=== PATIENT | female | born 1955 | race Caucasian/White ===

== ENCOUNTER 2018-09-05 05:32 | Observation (INO) | payer MEDICARE, SELFPAY ==
[2018-09-05] VITALS (8 sets, daily range): BP systolic 151–176; BP diastolic 63–91; PULSE 66–97; RESP 16–20; TEMP 36.5–36.9; O2SAT 93–95; BMI 36.0; BMI 35.7; BMI 35.8
--- NOTE | 2018-09-05 05:40 | EKG12_ITS ---
Test Reason : NAUSEA VOMITING Blood Pressure : / mmHG Vent. Rate : 061 BPM Atrial Rate : 061 BPM P-R Int : 152 ms QRS Dur : 090 ms QT Int : 402 ms P-R-T Axes : 040 -09 021 degrees QTc Int : 404 ms Normal sinus rhythm Voltage criteria for left ventricular hypertrophy Abnormal ECG Confirmed by VOLODYMYR RADER, INA ([id number]), mapping editor MAMADOU VILLEGAS ([id number]) on 09/09/2018 12:38:43 PM Referred By: PERRY Confirmed By:INA HELM MD
--- NOTE | 2018-09-05 05:41 | CT_ITS ---
STUDY: CT ABDOMEN AND PELVIS WITHOUT CONTRAST REASON FOR EXAM: Female, 63 years old. Vomiting and back pain RADIATION DOSAGE (If Supplied By Facility): CTDIvol = ( 22.94 ) mGy, DLP = ( 1186.41 ) mGycm TECHNIQUE: Transaxial images were obtained from the dome of the diaphragm to the symphysis pubis without oral contrast, and without intravenous contrast. Sagittal and coronal images were reconstructed. # of Images: 532 Individualized dose optimization techniques were used for this CT. COMPARISON: None. FINDINGS: The visualized lung bases are unremarkable. The visualized portions of the heart are within normal limits. Hiatal hernia. Remote postoperative changes of the right hepatic lobe. Cholecystectomy has been reported, although a round fluid-filled structure is identified in the gallbladder fossa measuring 4.9 x 4.0 cm. The gallbladder has indeed been removed, this could represent an eccentric hepatic cyst or choledochal cyst. Splenomegaly, with spleen length of 17 cm. Multiple abdominal varices. Normal pancreas. Normal bilateral adrenal glands. Normal right kidney. Normal left kidney. Normal visualized stomach. Normal small intestine. Sigmoid colon anastomosis. The appendix is visualized and appears normal. Normal abdominal aorta. Normal inferior vena cava. Normal retroperitoneum. Normal urinary bladder. Indeterminate partially calcified and partially cystic lesion in the right pelvis may be uterine or ovarian in nature. It measures 4.2 x 2.6 cm. Multiple midline anterior abdominal wall hernias. The most superior contains fat. The more inferior contains a portion of the transverse colon. More inferiorly, a hernia repair has been performed. Normal osseous structures. CT/Abdomen/Pelvis without Cont IMPRESSION: Multiple anterior abdominal wall hernias. The most inferior contains a portion of the transverse colon without mechanical obstruction. Indeterminate partially calcified and partially cystic lesion in the right pelvis may be uterine or ovarian in origin. Consider ultrasound correlation. Splenomegaly and multiple abdominal varices. Hiatal hernia. Indeterminate fluid-filled structure in the gallbladder fossa as described. If cholecystectomy has been performed, consider ultrasound correlation to evaluate further. Electronically Signed: Pranav Donald MD at 7:03 EDT Tel , Service support ,
--- NOTE | 2018-09-05 05:44 | ED.RN ---
NO OLD EKGS IN MUSE.
[2018-09-05] MEDS: proMETHazine 25 MG/ML Syringe 12.5 MG IV (06:00)
[2018-09-05] MEDS: 0.9% Normal Saline 1,000 ML 1000 ML IV (06:00)
[2018-09-05 06:14] LABS: Absolute Lymphocyte Count 0.72 X10^3/ul (0.83-4.51); Absolute Neutrophil Count 4.9 X10^3/uL (2.0-7.7); Basophil# 0.01 X10^3/uL; Basophil% 0.2 % (0-1); Eosinophil# 0.09 X10^3/uL; Eosinophils% 1.5 % (0-5); Hematocrit 44.6 % (37-47); Hemoglobin 15.3 g/dl (12.0-15.0); Lymphocyte # 0.72 X10^3/ul (4.0); Lymphocyte % 11.8 % (19-41); Mean Corp Hgb Conc 34.3 g/gl (32-36); Mean Corpuscular Hgb 29.7 pg (27.0-32.0); Mean Corpuscular Volume 86.6 fL (81-99); Mean Platelet Vol. 11.4 fl (6.2-12.0); Monocyte# 0.31 X10^3/uL; Monocyte% 5.1 % (0-10); Neutrophil # 4.94 X10^3/uL (2.7-7.7); Neutrophil % 81.2 % (47-70); Platelet Count 94 K/mm3 (150-450); RBC Distribution Width CV 14.1 % (11.6-14.6); RBC Distribution Width SD 44.5 fl (35.1-43.9); Red Blood Count 5.15 M/mm3 (4.2-5.4); White Blood Count 6.1 K/mm3 (4.4-11.0)
[2018-09-05 06:16] LABS: POSITIVE COUNT NO; POSITIVE DIFFERENTIAL NO; POSITIVE MORPHOLOGY NO
[2018-09-05] MEDS: LORazepam 2 MG/ML Syringe 1 MG IV (06:21)
[2018-09-05 06:32] LABS: BUN 13 mg/dL (7-18); Creatinine, Serum 0.72 mg/dL (0.55-1.02); EST Glomerular Filtration Rate 86 mL/min (>60); Estimated Creatinine Clearance 76.76 ml/min; Glucose 132 mg/dL (74-106)
[2018-09-05 06:33] LABS: AST(SGOT) 28 U/L (15-37); Alanine Aminotransfer ALT/SGPT 26 U/L (13-56); Albumin, Serum 3.8 g/dL (3.2-5.0); Alkaline Phosphatase 134 U/L (45-117); Anion Gap 8 (5-15); BUN/Creat Ratio 17.9 RATIO (10-20); Calcium,Total 9.2 mg/dL (8.5-10.1); Chloride 106 mmol/L (98-107); Est Glom Filt Rate - Afr Amer 104 mL/min (>60); Globulin 3.7 g/dL (2.2-4.2); Lipase 91 U/L (73-393); Potassium 4.1 mmol/L (3.5-5.1); Protein, Total 7.5 g/dL (6.4-8.2); Sodium Level 140 mmol/L (136-145)
[2018-09-05 06:39] LABS: Lactic Acid 1.1 mmol/L (0.4-2.0)
--- NOTE | 2018-09-05 06:43 | ED.VISSUMM ---
- ER Visit Summary Date of Service: 09/05/18 Chief Complaint: [Nausea and vomiting] History of Present Illness: The patient is a 63 F [presents to the emergency department with complaint of nausea and vomiting that started last evening. Patient's not sure if she just ate too much chocolate. Patient complains of some pain in her back and spasms. She denies any diarrhea. She denies any blood in her stool or black tarry stool. Patient denies any fevers. Patient does have a history of colon cancer with metastasis to the liver. Patient had prior cholecystectomy and partial liver resection. Patient denies urinary symptoms. Patient denies any chest pain or shortness of breath. Physical Examination: [HEENT-PERRLA, EOMI. Cranial nerves II through XII grossly intact. TMs clear. Mucous membranes moist. No adenopathy. Cardiovascular-regular rate and rhythm without murmur or ectopy Lungs-clear to auscultation, chest wall stable without crepitus or subcu emphysema Abdomen-normoactive bowel sounds, soft. Patient has some tenderness diffusely about the abdomen. There is no rebound, rigidity, or perineal signs. Extremities-intact ?4, normal range of motion, normal pulses, atraumatic] Test Results: [CBC with differential obtained showed a white blood cell count of 6.1, hemoglobin 15, hematocrit 45, platelets 94. Chemistries unremarkable. LFTs were normal. Lipase was 91. Troponin was less than 0.015.] CT scan of the abdomen pelvis showed multiple ventral hernias without evidence for incarceration or obstruction. Patient had a cystic structure in the area of the gallbladder fossa etiology uncertain and recommended further evaluation with ultrasound. Emergency Department Course and Treatment: [Patient was medicated initially with Zofran. Patient continued to vomit and was medicated with Reglan. Patient continues to complain of pain across her back and will be given a dose of morphine.] Treatment Plan: [Admit] Disposition: [Admit] Impression: [Intractable nausea and vomiting Back pain] This note was generated with [employer] dictation software. It may contain incorrect words, spelling, and punctuation that were not noted in review of the chart prior to signing ED Disposition - Plan for ED Patient: Chief Complaint: Nausea/Vomiting Referrals: Kimberly Ruelas MD [Primary Care Provider] -
[2018-09-05] MEDS: Metoclopramide 10 MG/2 ML Vial IV (06:57)
--- NOTE | 2018-09-05 08:54 | NURSING ---
pt refused flu shot at this time- states she is sick and wants to wait. IVF running at 150cc/hr per order via bag from ER
--- NOTE | 2018-09-05 09:16 | PCM.HP.STD ---
Problem List (1) Nausea and vomiting Status: Acute Qualifiers: Vomiting type: unspecified Vomiting Intractability: intractable Qualified Code(s): R11.2 - Nausea with vomiting, unspecified (2) Low back pain Status: Acute Qualifiers: Chronicity: acute Back pain laterality: bilateral Sciatica presence: without sciatica Qualified Code(s): M54.5 - Low back pain History of Present Illness Date of Admission: 09/05/18 Chief Complaint: Uncontrolled nausea and vomiting, low back pain The patient is a 63 year old hospital with chief complaint of nausea and vomiting since 1 AM this morning. Patient states she has had multiple episodes since that time including nausea and vomiting in the emergency room. She also complains of generalized low back pain, she does not complain of any radicular type pain down her legs or into the buttocks. Patient denies any diarrhea, she denies any fever, chills, or hematemesis. Evaluation in the emergency room included labs which were remarkable for elevated glucose of 132, alkaline phosphatase is elevated at 134, platelet count was slightly low at 94,000. CT scan of the abdomen and pelvis without contrast showed multiple anterior abdominal wall hernias, partially calcified cystic lesion in the right pelvis, and an indeterminate fluid-filled structure in the area of the gallbladder fossa that was approximately 5 cm in diameter. Hiatal hernia was also noted to be present. Patient was given several antiemetics in the emergency room with moderate success with her nausea and vomiting, she was not given any medication for her low back pain. [facility], given IV fluids, IV antiemetics, and IV pain medications if needed for low back pain, with the patient's low back pain continues, she may need plain films of her lumbar spine. 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 Lives: With Family Smoking Status: Never smoker Tobacco Use: Non-smoker Alcohol: None Drugs: None - *Family History Maternal History Items: Cancer - Breast cancer Paternal History Items: Cancer - Lymphoma Review of Systems Constitutional: Denies: Anorexia, Chills, Fever, Night Sweats, Malaise, Weakness, Weight Change, Fatigue Eyes: Denies: Cataracts, Conjunctivae Inflammation, Double vision, Drainage, Redness, Vision Change HEENT: Denies: Difficulty Swallowing, Dysphasia, Ear Pain, Eye Pain, Nasal bleeding, Nasal Congestion, Post Nasal Drip Cardiovascular: Denies: Chest Pain, Claudication, Chest Pressure, Palpitations Respiratory: Denies: Cough, Hemoptysis, Shortness of Breath, Shortness of breath at rest, Shortness of breath upon exertion, Sputum production Gastrointestinal: Reports: Nausea, Vomiting. Denies: Abdominal Pain, Constipation, Diarrhea, Hematemesis, Hematochezia, Melena Genitourinary: Denies: Dysuria, Frequency, Hematuria, Hesitancy, Urgency Gynecological: Denies: Breast symptoms Musculoskeletal: Reports: Back Pain. Denies: Foot Pain, Hand Pain, Joint Pain, Joint stiffness, Joint swelling, Joint Tenderness, Leg Pain, Neck Pain Skin: Denies: Dryness, Jaundice, Pruritis, Rash Neurological: Denies: Balance problems, Blurred vision, Double vision, Slurred speech, Difficulty swallowing, Focal weakness, Headaches, Incoordination, Numbness, Tingling Psychiatric: Denies: Anxiety, Depression, Homicidal Ideations, Suicidal Ideations Endocrine: Denies: Change in Body Habitus, Heat/ Cold Intolerance, Polydipsia, Polyuria Hematologic/ Lymphatic: Denies: Adenopathy, Anemia, Easy Bruising, Easy Bleeding, Petechiae, Purpura VTE Information - Inpt Only VTE Present on Admission: No VTE Mechan Device Prophylaxis: None VTE Pharm Prophylaxis ordered?: Yes Patient Problems: Active and Suspected Problems Nausea and vomiting (Acute) Low back pain (Acute) - Physical Exam General: Alert, Oriented x3, Cooperative, No apparent distress, Well developed, Well nourished HEENT: Atraumatic, PERRLA, EOMI, Normocephalic Oral: Moist Mucosa Neck: Supple, No JVD, Negative Carotid Bruits, No Nuchal Rigidity, Trachea Midline, Thyroid Normal Size and Texture Lungs: Clear to auscultation, Normal air movement, No rhonchi, No wheeze, No rales Cardiovascular: Regular rate, Regular Rhythm, Normal S1, Normal S2, No murmurs, No Ectopic Activity, PMI Normal, No rub noted, No Gallop Abdomen: Bowel Sounds Present, Soft, Non Tender, Hypoactive Bowel Sounds Extremities: No clubbing, No cyanosis, No edema, Capillary Refill Less than 3 Seconds Skin: No rashes, No breakdown Musculoskeletal: No Muscle Wasting Neurological: Cranial nerves II-XII grossly intact, Neuro grossly intact, Muscle tone normal, Sensory exam intact to light touch and pain Psych/Mental Status: Normal Affect, Appropriate, Alert and oriented to time, place, person, mood and affect Vital Signs Temp Pulse Resp BP Pulse Ox 98.2 F 70 20 H 158/86 H 95 09/05/18 08:21 09/05/18 09:06 09/05/18 08:21 09/05/18 08:21 09/05/18 08:21 Oxygen Delivery Method Room Air Weight: 103.4 kg Body Mass Index (BMI) 35.7 Laboratory Tests Past 24 Hrs 09/05/18 09/05/18 09/05/18 06:00 06:05 06:05 WBC 6.1 RBC 5.15 Hgb 15.3 H Hct 44.6 MCV 86.6 MCH 29.7 MCHC 34.3 RDW 14.1 RDW Differential 44.5 H Plt Count 94 L MPV 11.4 Immature Gran % (Auto) 0.200 Neut % (Auto) 81.2 H Lymph % (Auto) 11.8 L [place] % (Auto) 5.1 Eos % (Auto) 1.5 Baso % (Auto) 0.2 Absolute Neuts (auto) 4.9 Absolute Lymphs (auto) 0.72 L Total Counted Not Reportable Sodium 140 Potassium 4.1 Chloride 106 Carbon Dioxide 26.0 Anion Gap 8 BUN 13 Creatinine 0.72 Estim Creat Clear Calc 76.76 Est GFR (MDRD) Af Amer 104 Est GFR (MDRD) Non-Af 86 BUN/Creatinine Ratio 17.9 Glucose 132 H Lactic Acid 1.1 Calcium 9.2 Total Bilirubin 0.70 AST 28 ALT 26 Alkaline Phosphatase 134 H Troponin I < 0.015 Total Protein 7.5 Albumin 3.8 Globulin 3.7 Albumin/Globulin Ratio 1.0 Lipase 91 Assessment/Plan All Active Problems Nausea and vomiting (Acute) Low back pain (Acute) #1 uncontrolled nausea and vomiting-exact etiology unclear, possibly secondary to gastroenteritis although patient is not having any diarrhea. Patient was placed and observation status on MedSurg, she will receive IV fluids, IV antiemetics, and observed. #2 low back pain-etiology unclear at this point, possibly secondary to muscle spasm from nausea and vomiting, patient will receive IV pain medications, if her back continues to hurt she may need lumbar x-rays. #3 hypertension-patient will stay on her present medications #4 hypothyroidism-patient will stay on her present medication #5 depression-patient will stay on her present medication #6 fluid collection in the gallbladder fossa-this does not appear to be a solid mass but a fluid-filled area, patient has had a cholecystectomy in the past as well as part of her liver resected, since the patient is asymptomatic with this, I will not work this up at the present time Code Visit OBSV E&M: 57331 Initial observation care L3
[2018-09-05] MEDS: Morphine 4 MG/ML Syringe IV (09:26)
[2018-09-05] MEDS: Heparin Injection (Vial) 5,000 UNIT/ML VIAL 5000 UNIT SC ×2 (09:27→22:05)
[2018-09-05] MEDS: Lisinopril 10 MG Tablet PO (12:56)
[2018-09-05] MEDS: FLUoxetine 10 MG Capsule PO (12:56)
[2018-09-05] MEDS: 0.9% Normal Saline 1,000 ML 150 ML IV ×2 (12:56→19:48)
[2018-09-05] MEDS: Levothyroxine 137 MCG Tablet PO (12:58)
[2018-09-05 16:21] LABS: Bacteria 0 SEEN /hpf (None Seen); Red Blood Cells-Urine 0 SEEN /hpf (0-5); White Blood Cells 0 SEEN /hpf (0-5)
[2018-09-05 16:38] LABS: Color, Urine Yellow (Yellow); Glucose, Dipstick Normal (Normal); Ketone-Dipstick 5 mg/dl (Negative); Leukocyte Esterase-Dipstick Negative /ul (Negative); Nitrite-Dipstick Negative (Negative); Occult Blood-Urine Negative /ul (Negative); Protein-Dipstick 30 mg/dl (Negative); Specific Gravity, Urine 1.015 (1.002-1.030); Urine Bilirubin Dipstick Negative (Negative); Urine Clarity Clear (Clear); Urine Urobilinogen Normal (Normal)
[2018-09-05 17:02] LABS: Mucous, Urine 1+ /hpf (<or=2+); Squamous Epithelial Cells - UA 0-5 SEEN /hpf (5-10)
--- NOTE | 2018-09-05 19:52 | NURSING ---
pt was going to take Tylenol, but then decided not to. She was afraid it would make her vomit.
[2018-09-06] MEDS: 0.9% Normal Saline 1,000 ML 150 ML IV (02:23)
[2018-09-06 02:26] VITALS: BP 148/74; PULSE 68; RESP 18; TEMP 36.6; O2SAT 94
[2018-09-06] MEDS: Levothyroxine 137 MCG Tablet PO (05:41)
[2018-09-06 08:39] VITALS: BP 152/90; PULSE 67; RESP 18; TEMP 36.6; O2SAT 97
[2018-09-06] MEDS: Lisinopril 10 MG Tablet PO (10:39)
[2018-09-06] MEDS: Heparin Injection (Vial) 5,000 UNIT/ML VIAL 5000 UNIT SC (10:39)
[2018-09-06] MEDS: FLUoxetine 10 MG Capsule PO (10:40)
--- NOTE | 2018-09-06 11:48 | DCINST_ITS ---
- Discharge Diagnoses Current Active Problems: Current Active and Chronic Problems Nausea and vomiting (Acute) Low back pain (Acute) You will use the following diet at home:: No restrictions Your food should be the consistency of: Regular Your liquids should be the consistency of: Regular/Thin Discharge Activity: Return to Normal Activity Weight Bearing Status: Full weight bearing Allergies/Adverse Reactions: Allergies No Known Allergies Allergy (Verified 12/29/15 18:56) Medications to take at Discharge Fluoxetine [Prozac] 10 mg PO DAILY 08/01/17 Levothyroxine [Synthroid] 137 mcg PO DAILY 08/01/17 Lisinopril [Zestril] 10 mg PO DAILY 08/01/17 Primary Care Physician: Kimberly Ruelas MD [Primary Care Provider] - Please follow up with your Primary Care Physician in: within 2 weeks Test Results: Test results from this visit will be discussed in further detail at your follow- up appointment, if applicable.
[2018-09-06 12:51] VITALS: BP 138/70; PULSE 74; RESP 18; TEMP 36.8; O2SAT 97
--- NOTE | 2018-09-08 08:56 | DS.PCM_ITS ---
Discharge Date and Diagnosis Date of Admission: 09/05/18 Date of Discharge: 09/06/18 - Primary Discharge Diagnosis #1 uncontrolled nausea and vomiting secondary to viral gastroenteritis #2 low back pain secondary to muscle spasm from nausea and vomiting #3 hypertension #4 hypothyroidism #5 depression Hospital Course and Treatment Operations: None Procedures: None Summary of Care Provided: The patient is a 63 year old F was seen in the emergency room at [facility] with chief complaint of nausea and vomiting and low back pain. Workup in the emergency room included labs which were remarkable for a slightly elevated alkaline phosphatase-CBC was unremarkable. Patient was given IV fluids and antiemetics, she remained nauseated and she was placed in observation status on MedSurg 3 and IV fluids were continued and the patient was given IV antiemetics as needed. The following day, patient felt improved and was able to eat regular food there was no recurrence of the nausea and vomiting. Physical exam: On examination she appeared in good health and spirits. Vital signs as documented. Skin warm and dry and without overt rashes. Neck without JVD. Lungs clear. Heart exam notable for regular rhythm, normal sounds and absence of murmurs, rubs or gallops. Abdomen unremarkable and without evidence of organomegaly, masses, or abdominal aortic enlargement. Extremities nonedematous. Neuro: Cranial nerves II through XII are grossly intact, no focal motor deficits were noted, sensation was intact to light touch and pinprick Psych: Patient was alert and oriented x3, she did not appear anxious or depressed. On 09/06/18, patient was seen and examined and felt to be in stable condition for discharge home - Physical Exam Vital Signs Temp Pulse Resp BP Pulse Ox 98.3 F 74 18 138/70 H 97 09/06/18 12:51 09/06/18 12:51 09/06/18 12:51 09/06/18 12:51 09/06/18 12:51 Oxygen Delivery Method Room Air Weight: 103.4 kg Body Mass Index (BMI) 35.7 Intake and Output for Last 24 Hours 09/06/18 09/07/18 09/08/18 23:59 23:59 23:59 Intake Total 3047 / 3047 Balance 3047 / 3047 Discharge Activity: Return to Normal Activity Weight Bearing Status: Full weight bearing Home Medications: Medications to take at Discharge Fluoxetine [Prozac] 10 mg PO DAILY 08/01/17 Levothyroxine [Synthroid] 137 mcg PO DAILY 08/01/17 Lisinopril [Zestril] 10 mg PO DAILY 08/01/17 Primary Care Physician: Kimberly Ruelas MD [Primary Care Provider] - Please follow up with your Primary Care Physician in: within 2 weeks Disposition: Home Minutes spent on discharge:: 30 Patient Condition:: Stable Medical Necessity - Tobacco Use Smoking Status: Never smoker Tobacco Use: Non-smoker Meaningful Use Info Meaningful Use Diagnoses (Choose all that apply): None applicable Code Visit OBSV E&M: 89911 Observation care discharge
== END 2018-09-06 12:57 | disposition home or self-care (01) ==
LOC: ED 06:05 → MS3 07:57
PROVIDERS: Admitting Provider Internal Medicine; Emergency Provider Emergency Medicine; Family Provider Internal Medicine; PCP Internal Medicine; Visit Provider Internal Medicine
DX: A08.4 Viral intestinal infection, unspecified (principal); I10 Essential (primary) hypertension; E03.9 Hypothyroidism, unspecified; F32.9 Major depressive disorder, single episode, unspecified; Z79.899 Other long term (current) drug therapy; M62.830 Muscle spasm of back; Z85.038 Personal history of other malignant neoplasm of large intestine; Z85.05 Personal history of malignant neoplasm of liver
CPT/HCPCS: 74176; 80053; 81001; 83605; 83690; 84484; 85025; 93005; 96361; 96372; 96374; 96375; 97802; 99218; 99283; J7030; A4216; G0378

== ENCOUNTER 2018-11-14 01:39 | Emergency (ER) | payer MEDICARE, SELFPAY ==
[2018-11-14 01:40] VITALS: BP 176/96; PULSE 89; RESP 18; TEMP 36.8; O2SAT 96; BMI 35.5
[2018-11-14] MEDS: 0.9% Normal Saline 1,000 ML 1000 ML IV (02:43)
[2018-11-14] MEDS: proMETHazine 25 MG/ML Syringe 6.25 MG IV (02:44)
[2018-11-14 02:55] LABS: Absolute Lymphocyte Count 0.73 X10^3/ul (0.83-4.51); Basophil# 0.01 X10^3/uL; Basophil% 0.1 % (0-1); Eosinophil# 0.04 X10^3/uL; Eosinophils% 0.5 % (0-5); Hemoglobin 15.3 g/dl (12.0-15.0); Lymphocyte # 0.73 X10^3/ul (4.0); Lymphocyte % 8.9 % (19-41); Mean Corpuscular Hgb 29.8 pg (27.0-32.0); Mean Corpuscular Volume 87.5 fL (81-99); Mean Platelet Vol. 11.7 fl (6.2-12.0); Monocyte# 0.34 X10^3/uL; Monocyte% 4.2 % (0-10); Neutrophil # 7.02 X10^3/uL (2.7-7.7); Neutrophil % 85.9 % (47-70); POSITIVE COUNT NO; POSITIVE DIFFERENTIAL NO; POSITIVE MORPHOLOGY NO; Platelet Count 126 K/mm3 (150-450); RBC Distribution Width CV 13.4 % (11.6-14.6); Red Blood Count 5.14 M/mm3 (4.2-5.4); White Blood Count 8.2 K/mm3 (4.4-11.0)
[2018-11-14 03:05] LABS: ALB/GLOB Ratio 1.1 RATIO (0.9-2.4); AST(SGOT) 26 U/L (15-37); Alanine Aminotransfer ALT/SGPT 24 U/L (13-56); Albumin, Serum 4.1 g/dL (3.2-5.0); Alkaline Phosphatase 155 U/L (45-117); Anion Gap 10 (5-15); BUN 11 mg/dL (7-18); BUN/Creat Ratio 15.8 RATIO (10-20); Calcium,Total 9.2 mg/dL (8.5-10.1); Chloride 107 mmol/L (98-107); EST Glomerular Filtration Rate 90 mL/min (>60); Est Glom Filt Rate - Afr Amer 109 mL/min (>60); Estimated Creatinine Clearance 78.96 ml/min; Globulin 3.8 g/dL (2.2-4.2); Glucose 134 mg/dL (74-106); Lipase 107 U/L (73-393); Potassium 3.9 mmol/L (3.5-5.1); Protein, Total 7.9 g/dL (6.4-8.2); Sodium Level 140 mmol/L (136-145)
[2018-11-14 03:19] LABS: Mucous, Urine 0 SEEN /hpf (<or=2+); Red Blood Cells-Urine 0 SEEN /hpf (0-5)
[2018-11-14 03:23] LABS: Color, Urine Yellow (Yellow); Glucose, Dipstick Normal (Normal); Ketone-Dipstick 15 mg/dl (Negative); Leukocyte Esterase-Dipstick 500 /ul (Negative); Nitrite-Dipstick Negative (Negative); Occult Blood-Urine 10 /ul (Negative); Protein-Dipstick 100 mg/dl (Negative); Urine Bilirubin Dipstick Negative (Negative); Urine Clarity Clear (Clear); Urine Urobilinogen 1 mg/dl (Normal)
[2018-11-14 03:42] LABS: Bacteria RARE /hpf (None Seen); Squamous Epithelial Cells - UA 0-5 SEEN /hpf (5-10); White Blood Cells 5-10 SEEN /hpf (0-5)
--- NOTE | 2018-11-14 04:40 | ED.DEP ---
ED Disposition - Plan for ED Patient: Chief Complaint: Nausea/Vomiting Instructions: ED Nausea Vomiting Referrals: Kimberly Ruelas MD [Primary Care Provider] -
[2018-11-14] MEDS: Ketorolac 15 MG/ML Vial IV (04:55)
[2018-11-14 04:56] VITALS: BP 170/75; PULSE 81; RESP 17; O2SAT 97
--- NOTE | 2018-11-14 06:21 | ED.VISSUMM ---
- ER Visit Summary Date of Service: 11/14/18 Chief Complaint: Nausea and vomiting History of Present Illness: The patient is a 63 F who presents with nausea and vomiting. This is been a chronic recurrent issue for the patient. She has been undergoing evaluation. She states I am probably dehydrated. She began to have severe nausea and vomiting yesterday. No diarrhea. No abdominal pain. She does complain of a mild headache which she actually states is improving currently. She does have a history of metastatic colon cancer and partial liver resection. Physical Examination: Hypertensive vitals otherwise unremarkable Moist mucous membranes Heart regular rate and rhythm Lungs clear Abdomen soft no reproducible tenderness nondistended normal bowel sounds Alert Test Results: Labs notable for hemoglobin 15.3, glucose 134, alkaline phosphatase 155. Lipase normal. Urinalysis shows 500 leukocyte esterase, 5-10 WBCs, rare bacteria. Which this was sent for urine culture Emergency Department Course and Treatment: Patient was treated here with IV fluids and Phenergan. On reevaluation her nausea tolerated a p.o. challenge. She is still complaining of some headache and was given IV Toradol. Although her urinalysis does show rare bacteria and slight pyuria she has no lower urinary symptoms. Therefore this was sent for culture and we will defer on treatment at this time. She does feel better. She was discharged to follow-up with her primary care physician as needed. Treatment Plan: [] Disposition: Discharge Impression: Vomiting Headache This note was generated with [employer] dictation software. It may contain incorrect words, spelling, and punctuation that were not noted in review of the chart prior to signing ED Disposition - Plan for ED Patient: Disposition: Home or Assisted Living Chief Complaint: Nausea/Vomiting Instructions: ED Nausea Vomiting Referrals: Kimberly Ruelas MD [Primary Care Provider] -
== END 2018-11-14 05:05 | disposition home or self-care (01) ==
PROVIDERS: Emergency Provider Emergency Medicine; Family Provider Internal Medicine; PCP Internal Medicine
DX: R11.2 Nausea with vomiting, unspecified (principal); R51 Headache; K21.9 Gastro-esophageal reflux disease without esophagitis; I10 Essential (primary) hypertension; Z85.038 Personal history of other malignant neoplasm of large intestine; Z79.899 Other long term (current) drug therapy
CPT/HCPCS: 80053; 81001; 83690; 85025; 87077; 87086; 87088; 96361; 96374; 96375; 99283; J7030

== ENCOUNTER 2019-01-07 20:25 | Emergency (ER) | payer MEDICARE, SELFPAY ==
--- NOTE | 2019-01-07 20:27 | ED.RN ---
PT WENT TO [facility] WILL COMPLETE TRIAGE WHEN SHE RETURNS.
[2019-01-07 20:36] VITALS: BP 161/92; PULSE 73; RESP 16; TEMP 36.8; O2SAT 95; BMI 36.2
--- NOTE | 2019-01-07 21:13 | ED.VISSUMM ---
- ER Visit Summary Date of Service: 01/07/19 Chief Complaint: Nausea and vomiting History of Present Illness: The patient is a 63 F history of colon CA with liver metastases thousand and 12. Currently undergoing chemotherapy. Having nausea and vomiting since Sunday. Patient started chemotherapy again on Sunday and gets a continuous infusion. No fever. No diarrhea. No abdominal pain. She has had similar symptoms before with chemotherapy. Physical Examination: Older female no acute distress. Vital signs are stable. Afebrile. HEENT exam mild dry mucous membranes. Neck nontender no lymphadenopathy. Lungs clear to auscultation bilaterally. Heart regular rhythm no murmur. Abdomen is soft. Nontender. Nondistended. Normal bowel sounds. No peritoneal signs. No hernias. Moving all 4 extremities. Neurovascularly intact. Equal symmetrical top knitter strength bilaterally. Dorsi plantar flexion intact. Back nontender. Skin unremarkable. Neurologically awake and alert. No focal motor deficits. Test Results: BMP shows no acute abnormality. Normal gap and creatinine. Emergency Department Course and Treatment: Treated with IV fluids and Phenergan per patient request. On repeat exam at 2248 patient doing well. She is been able to hold down p.o. fluids. Her abdomen is benign. Her nausea is resolved. She is comfortable being discharged home. Treatment Plan: She has home nausea medications. Fluids and rest. Return if worse. Follow-up with her PCP as needed. Disposition: Discharge Impression: Acute nausea and vomiting Currently on chemotherapy for colon CA with liver metastases This note was generated with [employer] dictation software. It may contain incorrect words, spelling, and punctuation that were not noted in review of the chart prior to signing ED Disposition - Plan for ED Patient: Referrals: Kimberly Ruelas MD [Primary Care Provider] -
--- NOTE | 2019-01-07 21:17 | ED.DCSUM_ITS ---
- ER Visit Summary Date of Service: 01/07/19 Chief Complaint: Nausea and vomiting History of Present Illness: The patient is a 63 F history of colon CA with liver metastases thousand and 12. Currently undergoing chemotherapy. Having nausea and vomiting since Sunday. Patient started chemotherapy again on Sunday and gets a continuous infusion. No fever. No diarrhea. No abdominal pain. She has had similar symptoms before with chemotherapy. Physical Examination: Older female no acute distress. Vital signs are stable. Afebrile. HEENT exam mild dry mucous membranes. Neck nontender no lymphadenopathy. Lungs clear to auscultation bilaterally. Heart regular rhythm no murmur. Abdomen is soft. Nontender. Nondistended. Normal bowel sounds. No peritoneal signs. No hernias. Moving all 4 extremities. Neurovascularly intact. Equal symmetrical city engineer strength bilaterally. Dorsi plantar flexion intact. Back nontender. Skin unremarkable. Neurologically awake and alert. No focal motor deficits. Test Results: BMP shows no acute abnormality. Normal gap and creatinine. Emergency Department Course and Treatment: Treated with IV fluids and Phenergan per patient request. On repeat exam at 2248 patient doing well. She is been able to hold down p.o. fluids. Her abdomen is benign. Her nausea is resolved. She is comfortable being discharged home. Treatment Plan: She has home nausea medications. Fluids and rest. Return if worse. Follow-up with her PCP as needed. Disposition: Discharge Impression: Acute nausea and vomiting Currently on chemotherapy for colon CA with liver metastases This note was generated with [employer] dictation software. It may contain incorrect words, spelling, and punctuation that were not noted in review of the chart prior to signing ED Disposition - Plan for ED Patient: Referrals: Kimberly Ruelas MD [Primary Care Provider] -
[2019-01-07] MEDS: 0.9% Normal Saline 1,000 ML 1000 ML IV (21:26)
[2019-01-07] MEDS: proMETHazine 25 MG/ML Syringe 6.25 MG IV (21:27)
[2019-01-07 21:48] LABS: Anion Gap 10 (5-15); BUN 16 mg/dL (7-18); BUN/Creat Ratio 23.2 RATIO (10-20); Calcium,Total 8.9 mg/dL (8.5-10.1); Chloride 107 mmol/L (98-107); Creatinine, Serum 0.69 mg/dL (0.55-1.02); EST Glomerular Filtration Rate 91 mL/min (>60); Est Glom Filt Rate - Afr Amer 110 mL/min (>60); Glucose 118 mg/dL (74-106); Potassium 3.7 mmol/L (3.5-5.1); Sodium Level 142 mmol/L (136-145)
[2019-01-07 22:36] VITALS: BP 172/92; PULSE 52; RESP 16; TEMP 36.9; O2SAT 97
--- NOTE | 2019-01-07 22:53 | ED.DEP ---
ED Disposition - Plan for ED Patient: Disposition: Home or Assisted Living Instructions: ED Nausea Vomiting Referrals: Kimberly Ruelas MD [Primary Care Provider] - 3-5 Days if not improving Additional Instructions: Plenty of fluids and rest. Return if feeling worse. Follow-up with your primary care physician as needed. Usual home nausea medications as needed.
[2019-01-07 23:14] VITALS: BP 171/70; PULSE 54; RESP 16; O2SAT 96
== END 2019-01-07 23:29 | disposition home or self-care (01) ==
PROVIDERS: Emergency Provider Emergency Medicine; Family Provider Internal Medicine; PCP Internal Medicine
DX: R11.2 Nausea with vomiting, unspecified (principal); C18.9 Malignant neoplasm of colon, unspecified; C78.7 Secondary malignant neoplasm of liver and intrahepatic bile duct; Z79.899 Other long term (current) drug therapy
CPT/HCPCS: 80048; 96361; 96374; 99283; J7030

== ENCOUNTER 2019-12-27 01:42 | Emergency (ER) | payer MEDICARE, OTHER, SELFPAY ==
[2019-12-27 01:43] VITALS: BP 205/89; PULSE 83; RESP 17; TEMP 36.5; O2SAT 97; BMI 35.3
[2019-12-27] MEDS: cloNIDine HCl 0.1 MG Tablet PO ×2 (02:24→03:24)
[2019-12-27 02:25] VITALS: BP 186/75; PULSE 75; RESP 16; O2SAT 95
[2019-12-27 03:26] VITALS: BP 189/64
--- NOTE | 2019-12-27 03:27 | ED.DCSUM_ITS ---
- ER Visit Summary Date of Service: 12/27/19 Chief Complaint: Hypertension History of Present Illness: The patient is a 64 F who complains of high blood pressure. She noted her symptoms yesterday during the day and around 3 PM. She was feeling unwell, but has no other specific complaints. She checked her blood pressure and it was 177 systolic. She took her evening meds, per usual, and she had an episode of vomiting. She says her nausea resolved. No other GI issues or pain. No other symptoms whatsoever. She has a history of high blood pressure and takes lisinopril. She was previously on 10 mg, but was increased to 20 mg 3 days ago. She has been compliant. She has a history of colon cancer and stomach cancer in remission. Physical Examination: Blood pressure is 205/89. Otherwise vitals normal. Afebrile. HEENT exam unremarkable. Cranial nerves grossly intact. Heart regular. Lungs clear. Abdomen soft. Extremities nontender with no edema. Good strength and sensation. Normal cerebellar testing. Test Results: None performed Emergency Department Course and Treatment: Patient currently has asymptomatic hypertension. She was treated with Catapres 0.1 mg. Repeat blood pressure was 186/75. She received an additional dose. She continued to have no additional symptoms. Because she had no symptoms, no further work-up or testing was pursued. She does get regular laboratory studies, and we did not repeat these today. Patient's repeat blood pressure was improved. She has no symptoms and is requesting discharge. She will follow-up with her doctor for recheck. Return for any new or worsening issues. Call 911 for chest pain or stroke symptoms. Treatment Plan: As above Disposition: Discharge Impression: Hypertension, established This note was generated with [employer] dictation software. It may contain incorrect words, spelling, and punctuation that were not noted in review of the chart prior to signing ED Disposition - Plan for ED Patient: Referrals: Kimberly Ruelas MD [Primary Care Provider] -
--- NOTE | 2019-12-27 03:31 | ED.DEP ---
ED Disposition - Plan for ED Patient: Instructions: HYPERTENSION, Established Referrals: Kimberly Ruelas MD [Primary Care Provider] -
[2019-12-27 03:34] VITALS: BP 168/85
== END 2019-12-27 03:41 | disposition home or self-care (01) ==
PROVIDERS: Emergency Provider Emergency Medicine; PCP Internal Medicine
DX: I10 Essential (primary) hypertension (principal); Z85.038 Personal history of other malignant neoplasm of large intestine; K21.9 Gastro-esophageal reflux disease without esophagitis; E03.9 Hypothyroidism, unspecified
CPT/HCPCS: 99283

== ENCOUNTER 2021-02-01 12:22 | Outpatient (RCR) | payer MEDICARE, OTHER, SELFPAY ==
[2021-02-01] MEDS: COVID-19 VACC, MRNA(PFIZER)/PF 30 MCG/0.3 ML SYRINGE IM (16:01)
[2021-02-22] MEDS: COVID-19 VACC, MRNA(PFIZER)/PF 30 MCG/0.3 ML SYRINGE IM (16:08)
== END 2021-04-26 23:59 ==
LOC: IMMUN 12:22
PROVIDERS: PCP Internal Medicine; Visit Provider Family Medicine
DX: Z23 Encounter for immunization (principal)
CPT/HCPCS: 0001A; 0002A; 91300

== ENCOUNTER 2021-03-02 06:22 | Day surgery (SDC) | payer MEDICARE, OTHER, SELFPAY ==
--- NOTE | 2021-03-01 18:13 | HP.PCM_ITS ---
History and Physical Date of Admission: 03/02/21 HISTORY AND PHYSICAL ? Estefany Adrian 1955 ? ? REFERRING PHYSICIAN: Dima Lopez MD ? CHIEF COMPLAINT: No chief complaint on file. ? HPI: The patient is a 65 year old female with history of metastatic colon cancer status post resection of liver lesions x 2 who presents with possible recurrence of disease. She is found to have peritoneal lesions on PET scan. She is presently on xeloda for control of her disease. She is noted to have cirrhosis and splenomegaly with portal hypertension. She is referred by her oncologist for upper endoscopy to rule out varices and for colonoscopy for history of colon polyps and known history of colon cancer. She states that she has a normal appetite. She notes right flank pain occasionally. ? ? PAST MEDICAL HISTORY Diagnosis Date ? Anxiety ? ? Colon cancer (HCC) ? ? liver mets ? Hypertension ? ? Hypothyroidism ? ? Liver cancer (HCC) ? ? secondary ? Obesity ? ? PAST SURGICAL HISTORY Procedure Laterality Date ? HERNIA REPAIR HX ? 2013 ? PAST SURGICAL HISTORY OF ? 2011 ? partial colectomy ? PAST SURGICAL HISTORY OF ? 2013 ? liver resection, cholecystectomy ? PAST SURGICAL HISTORY OF ? 1987 ? tubal ? PORTOCATH PLACEMENT ? 2014 ? TUBAL LIGATION HX ? 1991 ? ? Current Outpatient Medications Medication Sig ? PEG 9819-Icywmqojxfh-Yei C (MOVIPREP) 100-7.5-2.691 gram Take 1,000 mL by mouth one time only for 1 dose. Refer to printed prep instructions from your provider. ? peg 3350-electrolytes (COLYTE) 240-22.72-6.72 -5.84 gram solution Take 4,000 mL by mouth one time only for 1 dose. ? furosemide (LASIX) 20 mg tablet Take 1 tablet by mouth once daily. ? lisinopril (ZESTRIL, PRINIVIL) 10 mg tablet TAKE 1 TABLET BY MOUTH ONCE DA MURPHY WITH 20 MG ? capecitabine (XELODA) 500 mg tablet Take 3 tablets (1,500 mg) by mouth twice daily. Take for 7 days on, followed by 7 days off. ? levothyroxine (SYNTHROID) 137 mcg tablet TAKE ONE TABLET BY MOUTH ONCE DAILY IN THE MORNING BEFORE BREAKFAST, except on Sunday and Sunday take a half a pill ? diclofenac sodium (VOLTAREN) 1 % topical gel Apply 2 g to affected area twice daily. ? lisinopril (ZESTRIL, PRINIVIL) 20 mg tablet Take 1 tablet by mouth once daily. ? FLUoxetine (PROZAC) 20 mg capsule Take 1 capsule by mouth once daily. ? fluticasone (FLONASE) 50 mcg/actuation nasal spray Use 2 Sprays in each nostril once daily. Rinse mouth after use. ? sodium chloride (SALINE NASAL) 0.65 % nasal spray Use 1-2 Sprays in the nose as needed. ? omeprazole (PRILOSEC) 20 mg capsule Take 1 capsule by mouth once daily. ? lidocaine-prilocaine (EMLA) cream Apply 1 application to affected area as needed. ? 0.9 % SODIUM CHLORIDE (0.9% NACL) Access implanted vascular access device (IVAD) as needed for flush, blood draw or treatment. Flush IVAD with 10-20 mL NS every 4 weeks and PRN when IVAD not in use. ? heparin 100 unit/mL injection Access implanted vascular access device (IVAD) as needed for flush, blood draw or treatment. Before de-accessing port, flush with 10-20ml normal saline and follow with 5 mL heparin (100 units/mL) (if no heparin allergy). De-access port on treatment completion. ? acetaminophen (TYLENOL) 500 mg tablet Take 1 tablet by mouth every 6 hours as needed. ? ? ALLERGIES: Patient has no known allergies. ? PERSONAL HISTORY: Social History ? Tobacco Use ? Smoking status: Never Smoker ? Smokeless tobacco: Never Used Vaping Use ? Vaping Use: Never used Substance Use Topics ? Alcohol use: No ? Drug use: No ? FAMILY HISTORY Problem Relation Age of Onset ? Breast Cancer Mother ? ? other (lymphoma) Father ? ? ? REVIEW OF SYSTEMS: General - denies fevers, denies anorexia Cardiovascular - denies chest pain, denies history of [facility] Pulmonary - denies shortness of breath, denies coughing up blood Gastrointestinal - denies abdominal pain but has right flank pain, denies hematemesis Neurological - denies seizures, has fingers tingling from previous chemotherapy, denies chronic headaches Genitourinary - denies burning with urination, denies blood in urine Hematological - denies spontaneous/prolonged bleeding Skin - denies nonhealing skin wounds Musculoskeletal - no new muscle/bone pain, has some right knee pain Endocrine - denies diabetes, no thyroid problems Psychological ? denies hallucinations ? ? PHYSICAL EXAMINATION: General: The patient is 65 year old female, well nourished, well hydrated in no acute distress. The patient is oriented to time, place, and person. VITALS: Pulse 75, temperature 37 ?C (98.6 ?F), weight 95.7 kg (211 lb), SpO2 97 %. Body mass index is 34.32 kg/m?. ? Head ? Normocephalic. EOM intact with sclera clear and no icterus noted. Wearing glasses.. Neck - supple with no jugular venous distention noted. Trachea is midline. Lungs ? clear to auscultation. Normal breath sounds. No rales/rhonchi/wheezing noted. No labored breathing noted, such as retractions. No cough heard. Heart ? normal heart sounds, systolic murmur noted, no rubs/clicks noted. Regular rate. Abdomen ? soft and benign. Normal bowel sounds. No abdominal bruits noted. Extremities ? no calf tenderness noted. No pitting edema noted. Skin ? normal skin integrity. Neurological ? gait normal, no focal deficits noted. Psych ? calm and appropriate IMPRESSION: EGD to rule out varices, colonoscopy for history of colon polyps/history of known colon cancer ? PLAN: I have discussed the above with the patient. I have offered colonoscopy and EGD, possible biopsies I have explained the procedure to the patient. I have counseled the patient as to the risks of the procedure, including but not limited to: infection, bleeding, injury to any intrabdominal organs such as liver/spleen, perforation of the GI tract, inability to complete the procedure, complications of anesthesia, etc. ? the patient understands. The patient was offered a surgery/procedure at a [facility] facility. The provider and patient have discussed in detail the risk of exposure to and/or potential harm posed by the COVID-19 virus with having a surgery/procedure at this time versus the risk of? delaying the surgery/procedure. It is not possible to know either the risk of delaying the surgery or procedure or chance of getting an infection with perfect accuracy, but a joint decision was made between the patient and the provider ?to proceed at this time with the scheduled surgery/procedure. ? The patient wishes to proceed. She would prefer MAC anesthesia . ? I have answered all questions to the patient?s satisfaction and the patient has no further questions. ? . Diagnoses: (Z86.010) History of colonic polyps (primary encounter diagnosis) (Z85.038) History of colon cancer (K74.60) Cirrhosis of liver without ascites, unspecified hepatic cirrhosis type (HCC) (D69.6) Thrombocytopenia (HCC) - complicates procedure with increased bleeding risk Return to Clinic: The patient is instructed to follow-up with me after the procedure as per needed. ? Leia Bazzi MD
[2021-03-02] VITALS (7 sets, daily range): BP systolic 130–169; BP diastolic 52–71; PULSE 59–72; RESP 16–116; TEMP 36–36.6; O2SAT 96–100; BMI 32.5
[2021-03-02] MEDS: Lactated Ringers 1,000 ML 100 ML IV (07:00)
--- NOTE | 2021-03-02 08:08 | OP.EGD_ITS ---
Patient Name: Estefany Adrian Procedure Date: 03/02/2021 7:17 AM Date of : 1955 Age: 65 Procedure: Upper GI endoscopy Indications: Iron deficiency anemia Providers: Leia Bazzi MD Referring MD: Kimberly Ruelas Medicines: See the Anesthesia note for documentation of the administered medications Patient Profile: Refer to note in patient chart for documentation of history and physical. Complications: No immediate complications. Procedure: Pre-Anesthesia Assessment: - see anesthesia note After obtaining informed consent, the endoscope was passed under direct vision. Throughout the procedure, the patient's blood pressure, pulse, and oxygen saturations were monitored continuously. The gastroscope was introduced through the mouth, and advanced to the second part of duodenum. The upper GI endoscopy was accomplished without difficulty. The patient tolerated the procedure well. Scope In: 7:25:27 AM Scope Out: 7:29:32 AM Total Procedure Duration Time 0 hours 4 minutes 5 seconds Findings: The first portion of the duodenum and second portion of the duodenum were normal. Diffuse mild mucosal changes were found in the stomach - this was due to contact bleeding due to patient's thrombocytopenia. The examined esophagus was normal - no varices noted A medium-sized hiatal hernia was present. Impression: - Normal first portion of the duodenum and second portion of the duodenum. - Mucosal changes in the stomach - due to contact bleeding due to patient's thrombocytopenia - no ulcers noted. - Normal esophagus - hiatal hernia, no varices noted. - No specimens collected. Recommendation: - Discharge patient to home (ambulatory). - Resume previous diet. - Continue present medications. - Discharge patient to home (ambulatory). Procedure Code(s): --- Professional --- 51646, Esophagogastroduodenoscopy, flexible, transoral; diagnostic, including collection of specimen(s) by brushing or washing, when performed (separate procedure) Diagnosis Code(s): --- Professional --- K31.89, Other diseases of stomach and duodenum D50.9, Iron deficiency anemia, unspecified CPT copyright 2017 [employer]. All rights reserved. The codes documented in this report are preliminary and upon photographic editor review may be revised to meet current compliance requirements. MD Liea Ferrera MD 03/02/2021 8:08:03 AM This report has been signed electronically. Number of Addenda: 0 Note Initiated On: 03/02/2021 7:17 AM
--- NOTE | 2021-03-02 08:08 | OP.CCLET_ITS ---
03/02/2021 Kimberly Ruelas [address] [phone] Re : Upper GI endoscopy procedure for Estefany Adrian Dear Dr. Ruelas This procedure was performed on Tuesday, March 02, 2021. My impressions and recommendations are as follows: Impressions : - Normal first portion of the duodenum and second portion of the duodenum. - Mucosal changes in the stomach - due to contact bleeding due to patient's thrombocytopenia - no ulcers noted. - Normal esophagus - hiatal hernia, no varices noted. - No specimens collected. Recommendations : - Discharge patient to home (ambulatory). - Resume previous diet. - Continue present medications. - Discharge patient to home (ambulatory). My findings are described in the full procedure note, which is enclosed. If I can be of further assistance, please feel free to contact me at Doctor phone number(s): , Work: . Sincerely, MD Leia Ferrera MD 03/02/2021 8:08:03 AM This report has been signed electronically.
--- NOTE | 2021-03-02 08:14 | OP.COLON_ITS ---
Patient Name: Estefany Adrian Procedure Date: 03/02/2021 7:31 AM Date of : 1955 Age: 65 Procedure: Colonoscopy Indications: Iron deficiency anemia Providers: Leia Bazzi MD Referring MD: Kimberly Ruelas Medicines: See the Anesthesia note for documentation of the administered medications Patient Profile: Refer to note in patient chart for documentation of history and physical. Last Colonoscopy: date unknown. Complications: No immediate complications. Procedure: Pre-Anesthesia Assessment: - see anesthesia note After I obtained informed consent, the scope was passed under direct vision. Throughout the procedure, the patient's blood pressure, pulse, and oxygen saturations were monitored continuously. The colonoscope was introduced through the anus and advanced to the cecum, identified by the appendiceal orifice, IC valve and transillumination. The colonoscopy was performed without difficulty. The patient tolerated the procedure well. The quality of the bowel preparation was adequate. Scope In: 7:32:42 AM Scope Withdrawal Time 0 hours 6 minutes 49 seconds Scope Out: 8:00:09 AM Total Procedure Duration Time 0 hours 27 minutes 27 seconds Findings: The perianal and digital rectal examinations were normal. Contact bleeding throughout colon due to patient's thrombocytopenia. Non-bleeding internal hemorrhoids were found. Impression: - Non-bleeding internal hemorrhoids. - No specimens collected. Recommendation: - Repeat colonoscopy in 5 years for surveillance for history of colon cancer. - Return to primary care physician PRN. - Continue present medications. Procedure Code(s): --- Professional --- 62758, Colonoscopy, flexible; diagnostic, including collection of specimen(s) by brushing or washing, when performed (separate procedure) Diagnosis Code(s): --- Professional --- K64.8, Other hemorrhoids Z85.038, Personal history of other malignant neoplasm of large intestine CPT copyright 2017 [employer]. All rights reserved. The codes documented in this report are preliminary and upon medical coder review may be revised to meet current compliance requirements. MD Leia Ferrera MD 03/02/2021 8:14:02 AM This report has been signed electronically. Number of Addenda: 0 Note Initiated On: 03/02/2021 7:31 AM
--- NOTE | 2021-03-02 08:14 | OP.CCLET_ITS ---
03/02/2021 Kimberly Ruelas [address] [phone] Re : Colonoscopy procedure for Estefany Adrian Dear Dr. Ruelas This procedure was performed on Tuesday, March 02, 2021. My impressions and recommendations are as follows: Impressions : - Non-bleeding internal hemorrhoids. - No specimens collected. Recommendations : - Repeat colonoscopy in 5 years for surveillance for history of colon cancer. - Return to primary care physician PRN. - Continue present medications. My findings are described in the full procedure note, which is enclosed. If I can be of further assistance, please feel free to contact me at Doctor phone number(s): , Work: . Sincerely, MD Leia Ferrera MD 03/02/2021 8:14:02 AM This report has been signed electronically.
== END 2021-03-02 08:44 | disposition home or self-care (01) ==
LOC: EN 06:23 → AC 06:24
PROVIDERS: PCP Internal Medicine; Referring Provider Internal Medicine; Visit Provider Surgery
PROC: 0DJD8ZZ Inspection of Lower Intestinal Tract, Via Natural or Artificial Opening Endoscopic (ICD-10-PCS; CPT 45378; principal; 2021-03-02 07:25)
DX: K64.8 Other hemorrhoids (principal); K44.9 Diaphragmatic hernia without obstruction or gangrene; K74.60 Unspecified cirrhosis of liver; D50.9 Iron deficiency anemia, unspecified; D69.6 Thrombocytopenia, unspecified; C78.7 Secondary malignant neoplasm of liver and intrahepatic bile duct; I10 Essential (primary) hypertension; F41.9 Anxiety disorder, unspecified; F32.9 Major depressive disorder, single episode, unspecified; E03.9 Hypothyroidism, unspecified; E66.9 Obesity, unspecified; Z85.038 Personal history of other malignant neoplasm of large intestine; Z87.19 Personal history of other diseases of the digestive system; Z90.49 Acquired absence of other specified parts of digestive tract; Z79.899 Other long term (current) drug therapy; Z68.34 Body mass index [BMI] 34.0-34.9, adult; Z86.010 Personal history of colon polyps
CPT/HCPCS: 43235; 45378; 87426; J7120

== ENCOUNTER 2021-03-17 18:53 | Emergency (ER) | payer MEDICARE, OTHER, SELFPAY ==
[2021-03-02 07:04] VITALS: BMI 32.5
[2021-03-17 18:54] VITALS: BP 159/70; PULSE 58; RESP 14; TEMP 36.4; O2SAT 97; BMI 33.1
[2021-03-17 19:48] LABS: Bacteria 0 SEEN /hpf (None Seen); Mucous, Urine 0 SEEN /hpf (<or=2+)
[2021-03-17 19:49] LABS: Color, Urine Yellow (Yellow); Glucose, Dipstick Normal (Normal); Ketone-Dipstick Negative (Negative); Leukocyte Esterase-Dipstick 25 /ul (Negative); Nitrite-Dipstick Negative (Negative); Occult Blood-Urine 150 /ul (Negative); Protein-Dipstick 30 mg/dl (Negative); Urine Bilirubin Dipstick Negative (Negative); Urine Clarity Clear (Clear); Urine Urobilinogen 1 mg/dl (Normal)
[2021-03-17 19:55] LABS: Red Blood Cells-Urine 0-5 SEEN /hpf (0-5); Squamous Epithelial Cells - UA 0-5 SEEN /hpf (5-10); White Blood Cells 0-5 SEEN /hpf (0-5)
--- NOTE | 2021-03-17 20:00 | EKG12_ITS ---
Test Reason : ABD PAIN Blood Pressure : / mmHG Vent. Rate : 050 BPM Atrial Rate : 057 BPM P-R Int : 148 ms QRS Dur : 092 ms QT Int : 504 ms P-R-T Axes : 032 -01 022 degrees QTc Int : 459 ms Sinus bradycardia Voltage criteria for left ventricular hypertrophy Abnormal ECG Confirmed by VOLODYMYR RADER, INA ([id number]), editorial clerk DOM BRAMBILA ([id number]) on 03/21/2021 12:21:50 PM Referred By: JULIAN Confirmed By:INA HELM MD
--- NOTE | 2021-03-17 20:00 | CT_ITS ---
STUDY: CT ABDOMEN AND PELVIS WITH CONTRAST REASON FOR EXAM: Female, 65 years old. Right upper quadrant pain, h/o froilan, liver resect RADIATION DOSAGE (If Supplied By Facility): CTDIvol = ( 18.13 ) mGy, DLP = ( 1139.17 ) mGycm TECHNIQUE: Transaxial images were obtained from the dome of the diaphragm to the symphysis pubis without oral contrast. IV 100mL Isovue-370 was administered. Sagittal and coronal images were reconstructed. Individualized dose optimization techniques were used for this CT. COMPARISON: 09/05/2018. FINDINGS: The visualized lung bases are unremarkable. The visualized portions of the heart are within normal limits. Right hepatic 2.5 x 1.5 cm nodule with peripheral calcifications. There appears to be visualization of a gallbladder with surrounding surgical clips. No significant dilatation of the extrahepatic biliary system. Enlarged spleen. Prominent splenorenal varicosity. Normal pancreas. Normal bilateral adrenal glands. Normal right kidney. Up to 1.7 cm cysts in the left kidney. Normal visualized stomach. Normal small intestine. Mild rectal wall thickening. The appendix is not visualized. Normal abdominal aorta. Normal inferior vena cava. Normal retroperitoneum. Normal urinary bladder. Multiple ventral hernias of the abdominal wall. Normal osseous structures. CT/Abdomen/Pelvis W IV Cont ONLY IMPRESSION: Right hepatic hypoattenuating nodule is noted. Left renal cysts. Mild rectal wall thickening. Multiple ventral hernias. One partially containing the transverse colon. Splenomegaly. Electronically Signed: Augustus Reyes DO at 21:28 EDT Tel [phone], Service support ,
[2021-03-17] MEDS: 0.9% Normal Saline 1,000 ML 1000 ML IV (20:04)
[2021-03-17 20:06] LABS: Absolute Lymphocyte Count 0.65 X10^3/uL (0.83-4.51); Absolute Neutrophil Count 3.8 X10^3/uL (2.0-7.7); Basophil# 0.01 X10^3/uL; Basophil% 0.2 % (0-1); Eosinophil# 0.09 X10^3/uL; Eosinophils% 1.9 % (0-5); Hematocrit 36.5 % (37-47); Hemoglobin 12.4 g/dL (12.0-15.0); Lymphocyte # 0.65 X10^3/ul (0.83-4.51); Lymphocyte % 13.4 % (19-41); Mean Corpuscular Hgb 33.2 pg (27.0-32.0); Mean Corpuscular Volume 97.9 fL (81-99); Mean Platelet Vol. 11.2 fl (6.2-12.0); Monocyte# 0.33 X10^3/uL; Monocyte% 6.8 % (0-10); NRBC Flagged by Analyzer 0 % (0-5); Neutrophil # 3.75 X10^3/uL (2.7-7.7); Neutrophil % 77.1 % (47-70); POSITIVE COUNT YES; Platelet Count 65 K/mm3 (150-450); RBC Distribution Width CV 16.8 % (11.6-14.6); RBC Distribution Width SD 59.7 fl (35.1-43.9); Red Blood Count 3.73 M/mm3 (4.2-5.4); White Blood Count 4.9 K/mm3 (4.4-11.0)
[2021-03-17 20:18] LABS: ALB/GLOB Ratio 1.1 RATIO (0.9-2.4); AST(SGOT) 28 U/L (15-37); Alanine Aminotransfer ALT/SGPT 18 U/L (13-56); Albumin, Serum 3.4 g/dL (3.2-5.0); Alkaline Phosphatase 156 U/L (45-117); Anion Gap 3 (5-15); BUN 12 mg/dL (7-18); BUN/Creat Ratio 15.6 RATIO (10-20); Calcium,Total 8.8 mg/dL (8.5-10.1); Chloride 109 mmol/L (98-107); Creatinine, Serum 0.77 mg/dL (0.55-1.02); EST Glomerular Filtration Rate 80 mL/min (>60); Est Glom Filt Rate - Afr Amer 96 mL/min (>60); Estimated Creatinine Clearance 53.81 ml/min; Glucose 94 mg/dL (74-106); Lipase 98 U/L (73-393); Potassium 3.8 mmol/L (3.5-5.1); Protein, Total 6.4 g/dL (6.4-8.2); Sodium Level 142 mmol/L (136-145)
[2021-03-17 20:32] LABS: Differential Indicated SCAN CRITERIA MET
[2021-03-17 20:33] LABS: Platelet Estimate MOD DEC (ADEQ)
[2021-03-17 20:35] LABS: Red Cell Morphology N CHROM NORMAL (NORM C&C)
[2021-03-17 20:36] LABS: Anisocytosis RARE; Macrocytosis RARE
--- NOTE | 2021-03-17 21:44 | EX.ED.DYSGE1 ---
HPI History of Present Illness Chief Complaint: Abd Pain Informant: patient Onset/Context/Timing Onset: Days Context: Gradual Onset Timing: Intermittent Current Severity: Mild Maximum Severity: Moderate Narrative Narrative: The patient is a 65-year-old female who presents to the emergency department abdominal pain. She states that she will intermittently have pain in her midepigastric area. Seems to be worse after eating. She states the pain came on today. States by the time she got here, the pain seemed to have improved. She was mildly nauseated but denies any vomiting. She denies any fevers or chills. She does have history of prior cholecystectomy. She states that she is also had 2 areas of her liver that been operated on. She denies any chest pain or shortness of breath. She states she is otherwise been in her normal state of health. [facility] Medical History Cancer Hypertension Home Medications fluoxetine 20 mg PO DAILY 08/01/17 [History Last Taken 09/05/18] levothyroxine 137 mcg PO DAILY 08/01/17 [History Last Taken 03/02/21 06:00] lisinopril [Zestril] 30 mg PO DAILY 08/01/17 [History Last Taken 03/02/21 06:00] omeprazole 20 mg PO DAILY 11/14/18 [History Last Taken 03/02/21 06:00] capecitabine 1,500 mg PO QWEEK 12/27/19 [History Last Taken 02/23/21] sucralfate [Carafate] 1 g PO BID #60 tab 03/17/21 [Rx Last Taken Unknown] Allergy/AdvReac Type Severity Reaction Status Date / Time No Known Allergies Allergy Verified 03/17/21 18:57 Social History Smoking Status: Never smoker ROS ROS ED Constitutional Constitutional ED: Denies chills or fever(s) Eyes Eyes: Denies blurry vision or change in vision ENT ENT ED: Denies ear pain or sore throat Cardiovascular Cardiovascular: Denies chest pain or palpitations Respiratory/Chest Respiratory/Chest: Denies cough, dyspnea or dyspnea on exertion Gastrointestinal Gastrointestinal: Reports abdominal pain and nausea; Denies vomiting Genitourinary Genitourinary ED: Denies dysuria or urinary frequency Musculoskeletal Musculoskeletal: Denies arthralgias or myalgias Integumentary Denies rash Neurologic Neurologic: Denies headache(s) or paresthesias Psychiatric Psychiatric: Denies anxiety or depression Endocrine Endocrinology: Denies polydipsia or polyuria Allergic/Immunologic Allergic/Immunologic ED: Denies urticaria EXAM Physical Exam Const Vital Signs: 03/17/21 18:54 Temperature 97.6 F L Temperature Source Temporal Pulse Rate 58 L Respiratory Rate 14 Blood Pressure 159/70 H Blood Pressure Mean 99 Pulse Ox 97 Oxygen Delivery Method Room Air Positive well nourished and well developed General Appearance ED: well developed HEENT Reports normocephalic, head/scalp atraumatic and moist mucous membranes Eyes PERRL and EOMs intact bilaterally Neck no lymphadenopathy and supple General: Negative for tenderness Chest Wall inspection of chest normal Resp normal respiratory effort and clear to auscultation bilaterally Cardio regular rate, regular rhythm and no murmurs GI normal to inspection, nondistended, normoactive bowel sounds Palpation: Negative for tender, guarding or rebound tenderness present Back/Spine no CVA tenderness Cervical Spine: Negative for cervical spine tenderness Thoracic Spine / Upper Back: Negative for thoracic spinal tenderness Extremity normal to inspection General Extremety ED: Negative for tenderness Neuro oriented x3 and CN's II-XII intact bilaterally Neuro Narrative: No focal deficits appreciated. Sensorium / Orientation: alert Psych mental status grossly normal Skin no rashes or lesions noted, no wounds and skin turgor normal MDM MDM MDM Narrative Medical decision making narrative: The patient presents with mid abdominal pain after eating. By the time she arrived here, she is pain-free. She has had prior cholecystectomy. She denies any chest pain or shortness of breath. EKG was obtained on patient arrival. It was sinus rhythm without evidence of acute ischemia. [facility]. Liver functions were unremarkable. Lipase is negative. Blood counts are stable. Patient underwent CT of the abdomen and pelvis. She does have a small ventral hernia, but there is no evidence of incarceration. She does have symptoms with eating. She is on omeprazole. I am going to add Carafate. At this point, I do feel that she is safe for outpatient follow-up. She is comfortable with this plan of care. Impression 1. Epigastric abdominal pain Lab Data Attestation: I reviewed the patient's lab results. Labs: Laboratory Results - last 24 hr 03/17/21 03/17/21 03/17/21 18:53 18:53 19:42 WBC 4.9 RBC 3.73 L Hgb 12.4 Hct 36.5 L MCV 97.9 MCH 33.2 H MCHC 34.0 RDW Std Deviation 59.7 H RDW Coeff of Halima 16.8 H Plt Count 65 L MPV 11.2 Immature Gran % (Auto) 0.600 Neut % (Auto) 77.1 H Lymph % (Auto) 13.4 L [place] % (Auto) 6.8 Eos % (Auto) 1.9 Baso % (Auto) 0.2 Absolute Neuts (auto) 3.8 Absolute Lymphs (auto) 0.65 L Nucleated RBC % 0 Platelet Estimate MOD DEC RBC Morphology N CHROM Anisocytosis RARE Macrocytosis RARE Sodium 142 Potassium 3.8 Chloride 109 H Carbon Dioxide 30.0 Anion Gap 3 L BUN 12 Creatinine 0.77 Estim Creat Clear Calc 53.81 Est GFR (MDRD) Af Amer 96 Est GFR (MDRD) Non-Af 80 BUN/Creatinine Ratio 15.6 Glucose 94 Calcium 8.8 Total Bilirubin 1.10 H AST 28 ALT 18 Alkaline Phosphatase 156 H Total Protein 6.4 Albumin 3.4 Globulin 3.0 Albumin/Globulin Ratio 1.1 Lipase 98 Urine Color Yellow Urine Clarity Clear Urine pH 6.0 Ur Specific [place] 1.010 Urine Protein 30 H Urine Glucose (UA) Normal Urine Ketones Negative Urine Occult Blood 150 H Urine Nitrite Negative Urine Bilirubin Negative Urine Urobilinogen 1 H Ur Leukocyte Esterase 25 H Urine RBC 0-5 SEEN Urine WBC 0-5 SEEN Ur Squamous Epith Cells 0-5 SEEN Urine Bacteria 0 SEEN Urine Mucus 0 SEEN Radiography Diagnostic Testing: Radiology Impression Abdomen/Pelvis CT 03/17/21 20:00 IMPRESSION: Right hepatic hypoattenuating nodule is noted. Left renal cysts. Mild rectal wall thickening. Multiple ventral hernias. One partially containing the transverse colon. Splenomegaly. Electronically Signed: Augustus Reyes DO at 21:28 EDT Tel [phone], Service support , Discharge Plan Triage Chief Complaint: Abd Pain ED Provider: Madi Gonzalez Dx/Rx/DC Orders Instructions: ED PEPTIC ULCER vs GASTRITIS Prescriptions: New sucralfate [Carafate] 1 gram tablet 1 g PO BID Qty: 60 RF: 0 No Action levothyroxine 137 MCG tablet 137 mcg PO DAILY RF: 0 fluoxetine 10 MG capsule 20 mg PO DAILY RF: 0 lisinopril [Zestril] 2.5 MG tablet 30 mg PO DAILY RF: 0 omeprazole 20 MG capsule 20 mg PO DAILY RF: 0 capecitabine 500 MG tablet 1,500 mg PO QWEEK RF: 0 Primary Care Provider: Kimberly Ruelas Referrals: Kimberly Ruelas MD [Primary Care Provider] -
[2021-03-17 21:48] VITALS: BP 129/81; PULSE 79; RESP 15; O2SAT 99
== END 2021-03-17 22:13 | disposition home or self-care (01) ==
LOC: ED 20:20
PROVIDERS: Emergency Provider Emergency Medicine; PCP Internal Medicine
DX: R10.13 Epigastric pain (principal); R16.1 Splenomegaly, not elsewhere classified; K43.9 Ventral hernia without obstruction or gangrene; N28.1 Cyst of kidney, acquired; Z90.49 Acquired absence of other specified parts of digestive tract; I10 Essential (primary) hypertension; Z79.899 Other long term (current) drug therapy
CPT/HCPCS: 74177; 80053; 81001; 83690; 85025; 93005; 99284; Q9967; A4216

== ENCOUNTER 2021-05-22 12:24 | Emergency (ER) | payer MEDICARE, OTHER, SELFPAY ==
[2021-05-22 12:24] VITALS: BP 166/91; PULSE 80; RESP 18; TEMP 36.7; O2SAT 99; BMI 31.8
--- NOTE | 2021-05-22 12:57 | EKG12_ITS ---
Test Reason : CP Blood Pressure : / mmHG Vent. Rate : 057 BPM Atrial Rate : 057 BPM P-R Int : 146 ms QRS Dur : 090 ms QT Int : 450 ms P-R-T Axes : 058 020 048 degrees QTc Int : 438 ms Sinus bradycardia with sinus arrhythmia Otherwise normal ECG Confirmed by VOLODYMYR RADER, INA ([id number]), advertising editor SRI GRIFFIN ([id number]) on 05/25/2021 1:18:28 PM Referred By: LAVINIA Confirmed By:INA HELM MD
--- NOTE | 2021-05-22 12:57 | CT_ITS ---
HISTORY: Eval aorta. TECHNIQUE: Helically acquired images were obtained of the chest following IV contrast. A radiation dose optimization technique was used for this scan. IV Contrast dosage and agent: 100 mL [id number] . # of images incl. paperwork: [id number]. COMPARISON: XR 08/01/2017. FINDINGS: CENTRAL AIRWAYS: Patent. LUNGS: Clear. PLEURA: No pneumothorax or pleural effusion. HEART AND PERICARDIUM: Heart size within normal limits. No significant pericardial effusion. VESSELS: Aorta within normal limits in size and contour. Mild atherosclerosis. No large central pulmonary embolism although study not performed with pulmonary embolism protocol. Right chest wall port with catheter tip in the high right atrium. MEDIASTINUM AND MARK ANTHONY: No enlarged lymph nodes. BONES: Probable hemangiomas in the T1 and T9 vertebral bodies. UPPER ABDOMEN: Postoperative changes of the liver with hypoattenuating lesion noted. Splenomegaly. Varices. Fat-containing ventral hernia.. CT/Chest WITH Contrast IMPRESSION: No acute abnormality identified in the chest. No thoracic aortic aneurysm or dissection. Postoperative changes of the liver, splenomegaly, and varices. Individualized dose optimization techniques were used for this CT. at 1401 Reported and signed by: Mirta Rodriguez MD Electronically Signed: Mirta Rodriguez MD at 14:00 EDT Tel , Service support ,
[2021-05-22 13:01] VITALS: PULSE 93; RESP 18; O2SAT 99
[2021-05-22 13:03] VITALS: BP 161/99
--- NOTE | 2021-05-22 13:07 | EDS_ITS ---
HPI History of Present Illness Chief Complaint: Nausea/Vomiting Informant: patient Narrative Narrative: Patient is a 65-year-old female with a past medical history of hypertension who presents to the emergency department for left lower back pain that is radiating to her lateral chest wall bilaterally. This started earlier today. She is never had this before. Denies any injury. She has been nauseous and vomiting all morning with this. No known aggravating or relieving factors. Movement does not seem to bother this. She is never had this before. She denies any chest pain or abdominal pain. She denies any recent illness including any cough, fever/chills. She denies any history of heart or lung issues. She has not taken anything for symptoms at this point. PFSH PFSH Medical History Cancer Depression Hypertension Hypothyroidism Non-smoker Home Medications fluoxetine 20 mg PO DAILY 08/01/17 [History Last Taken 09/05/18] levothyroxine 137 mcg PO DAILY 08/01/17 [History Last Taken 03/02/21 06:00] lisinopril [Zestril] 30 mg PO DAILY 08/01/17 [History Last Taken 03/02/21 06:00] omeprazole 20 mg PO DAILY 11/14/18 [History Last Taken 03/02/21 06:00] capecitabine 1,500 mg PO QWEEK 12/27/19 [History Last Taken 02/23/21] sucralfate [Carafate] 1 g PO BID #60 tab 03/17/21 [Rx Last Taken Unknown] Allergy/AdvReac Type Severity Reaction Status Date / Time No Known Allergies Allergy Verified 05/22/21 12:24 Social History Smoking Status: Never smoker ROS ROS ED Constitutional Constitutional ED: Denies chills or fever(s) Eyes Eyes: Denies change in vision ENT ENT ED: Denies epistaxis or rhinorrhea Cardiovascular Cardiovascular: Denies chest pain or palpitations Respiratory/Chest Respiratory/Chest: Denies cough, dyspnea or dyspnea on exertion Gastrointestinal Gastrointestinal: Reports nausea and vomiting; Denies abdominal pain or diarrhea Genitourinary Genitourinary ED: Denies dysuria, hematuria or urinary frequency Musculoskeletal Musculoskeletal: Reports back pain; Denies neck pain Integumentary Denies rash Neurologic Neurologic: Denies dizziness, headache(s) or weakness EXAM Physical Exam Const Vital Signs: 05/22/21 12:24 05/22/21 13:01 05/22/21 13:03 Temperature 98.0 F Temperature Source Temporal Pulse Rate 80 93 Respiratory Rate 18 18 Blood Pressure 166/91 H 161/99 H Blood Pressure Mean 116 119 Pulse Ox 99 99 Oxygen Delivery Method Room Air Room Air 05/22/21 13:08 Temperature Temperature Source Pulse Rate Respiratory Rate Blood Pressure Blood Pressure Mean Pulse Ox 98 Oxygen Delivery Method Room Air Positive well nourished and well developed Constitutional Narrative: She does appear in moderate distress in pain. General Appearance ED: well developed HEENT Reports normocephalic, head/scalp atraumatic and moist mucous membranes Eyes PERRL and EOMs intact bilaterally Neck supple General: Negative for tenderness Chest Wall inspection of chest normal Resp normal respiratory effort and clear to auscultation bilaterally Auscultation: Negative for rales, rhonchi or wheezes Cardio regular rate, regular rhythm and no murmurs GI normal to inspection, nondistended, normoactive bowel sounds and non-tender Palpation: soft; Negative for guarding or rebound tenderness present Back/Spine Back/Spine Narrative: Nonreproducible back pain. Extremity normal to inspection Extremity Narrative: 2+ radial pulse bilateral General Extremety ED: Negative for edema or tenderness General Extremity: Negative for edema Neuro oriented x3, CN's II-XII intact bilaterally and no sensory deficits noted Sensorium / Orientation: alert Motor Exam: strength 5/5 throughout Psych mental status grossly normal Skin no rashes or lesions noted MDM MDM MDM Narrative Medical decision making narrative: Patient presents to the emergency department for nausea and vomiting. She has nonreproducible upper back pain. She describes this as 10 out of 10. She is hypertensive upon arrival but otherwise normal vital signs. Given the nonreproducibility, vomiting I do have high concern for intrathoracic pathology. Will obtain immediate CT scan. EKG did not show any signs of ischemia or arrhythmia. Patient given morphine and Zofran for symptomatic treatment in the meantime. Patient's lab work-up did not reveal a significant acute abnormality. Her initial troponin is 29.1. CT scan of the chest did not reveal any aortic dissection, obvious proximal PE or cardiopulmonary abnormality. On reexamination she is feeling much better. She was willing to stay for repeat troponin. This next on was 51.3 which is within normal limits. She is still now asymptomatic. She does not know what caused her to have this pain that is now gone. She is able to get up around the room without difficulty. This time does not appear to be ACS, aortic catastrophe, blood clot or esophageal rupture causing her symptoms. This could have been a esophageal spasm or other muscle cramp. Since she is completely asymptomatic at this time I do feel she is stable for discharge. She is going to call her PCP tomorrow morning for follow- up. If she develops any repeat symptoms or persistent symptoms she needs to come back to the emerge department for reevaluation. She understands and is agreeable this plan. Discharged home in stable condition. All questions answered. Clinical impression: #1 upper back pain EKG Initial EKG: Attestation: I personally reviewed and interpreted this EKG as follows: (Rate of 57 bpm in sinus bradycardia. Normal intervals. Normal axis. No significant ST elevations or depressions. No T wave abnormalities.) Discharge Plan Triage Chief Complaint: Nausea/Vomiting ED Provider: Jim Gaines Dx/Rx/DC Orders Instructions: ED Back Pain (Acute or Chronic) Prescriptions: No Action levothyroxine 137 MCG tablet 137 mcg PO DAILY RF: 0 fluoxetine 10 MG capsule 20 mg PO DAILY RF: 0 lisinopril [Zestril] 2.5 MG tablet 30 mg PO DAILY RF: 0 omeprazole 20 MG capsule 20 mg PO DAILY RF: 0 capecitabine 500 MG tablet 1,500 mg PO QWEEK RF: 0 sucralfate [Carafate] 1 gram tablet 1 g PO BID Qty: 60 RF: 0 Primary Care Provider: Kimberly Ruelas Referrals: Kimberly Ruelas MD [Primary Care Provider] - 1 Day Disposition Disposition: Home, Self Care Discharge Date/Time: 05/22/21 16:42
[2021-05-22 13:08] VITALS: O2SAT 98
[2021-05-22] MEDS: Morphine 4 MG/ML Syringe IV (13:10)
[2021-05-22] MEDS: Ondansetron 4 MG/2 ML Vial IV (13:11)
[2021-05-22 13:21] LABS: Absolute Lymphocyte Count 0.51 X10^3/uL (0.83-4.51); Absolute Neutrophil Count 3.4 X10^3/uL (2.0-7.7); Basophil# 0.01 X10^3/uL; Basophil% 0.2 % (0-1); Eosinophil# 0.05 X10^3/uL; Eosinophils% 1.2 % (0-5); Hematocrit 36.7 % (37-47); Hemoglobin 12.8 g/dL (12.0-15.0); Lymphocyte # 0.51 X10^3/ul (0.83-4.51); Lymphocyte % 12.3 % (19-41); Mean Corp Hgb Conc 34.9 g/dL (32-36); Mean Corpuscular Hgb 32.4 pg (27.0-32.0); Mean Corpuscular Volume 92.9 fL (81-99); Mean Platelet Vol. 11.3 fl (6.2-12.0); Monocyte# 0.19 X10^3/uL; Monocyte% 4.6 % (0-10); NRBC Flagged by Analyzer 0 % (0-5); Neutrophil # 3.35 X10^3/uL (2.7-7.7); POSITIVE COUNT YES; POSITIVE DIFFERENTIAL YES; Platelet Count 62 K/mm3 (150-450); RBC Distribution Width CV 14.6 % (11.6-14.6); RBC Distribution Width SD 50.4 fl (35.1-43.9); Red Blood Count 3.95 M/mm3 (4.2-5.4)
[2021-05-22 13:22] LABS: Differential Indicated SCAN CRITERIA MET
[2021-05-22 13:37] LABS: Anion Gap 9 (5-15); BUN 10 mg/dL (7-18); BUN/Creat Ratio 15.4 RATIO (10-20); Calcium,Total 8.8 mg/dL (8.5-10.1); Chloride 107 mmol/L (98-107); Creatinine, Serum 0.65 mg/dL (0.55-1.02); EST Glomerular Filtration Rate 97 mL/min (>60); Est Glom Filt Rate - Afr Amer 117 mL/min (>60); Estimated Creatinine Clearance 53.81 ml/min; Glucose 117 mg/dL (74-106); Magnesium 1.6 mg/dL (1.6-2.6); Potassium 3.5 mmol/L (3.5-5.1); Sodium Level 140 mmol/L (136-145); Troponin-I HS 29.1 pg/mL (3.0-53.7)
[2021-05-22 13:44] LABS: White Blood Count 4.1 K/mm3 (4.4-11.0)
[2021-05-22 16:12] LABS: Troponin-I HS 51.3 pg/mL (3.0-53.7)
[2021-05-22 16:40] VITALS: BP 173/65; PULSE 60; RESP 18; O2SAT 93
[2021-05-24 12:17] LABS: Pathologist Review Reviewed
== END 2021-05-22 16:42 | disposition home or self-care (01) ==
PROVIDERS: Emergency Provider Emergency Medicine; PCP Internal Medicine
DX: R11.2 Nausea with vomiting, unspecified (principal); M54.6 Pain in thoracic spine; F32.9 Major depressive disorder, single episode, unspecified; I10 Essential (primary) hypertension; E03.9 Hypothyroidism, unspecified
CPT/HCPCS: 36591; 71260; 80048; 83735; 84484; 85025; 93005; 96374; 96375; 99284; Q9967; A4216; J2405

== ENCOUNTER 2021-08-11 20:37 | Emergency (ER) | payer MEDICARE, OTHER, SELFPAY ==
[2021-08-11 20:38] VITALS: BP 158/79; PULSE 91; RESP 18; TEMP 37.3; O2SAT 97; BMI 31.7
--- NOTE | 2021-08-11 21:37 | EX.ED.DYSGE1 ---
HPI History of Present Illness Chief Complaint: Nausea/Vomiting Narrative Narrative: Patient is a 65-year-old female who states that when she eats the wrong thing she will develop bouts of vomiting. She states she did this last night and today began throwing up around 2 PM. She states she has had multiple episodes of vomiting approximately 10-15 in the past 7 hours. She states she is taken home nausea medication with no symptom improvement. She reports she is concerned she is becoming dehydrated and secondary to this presents for evaluation. PFSH PFSH Medical History Cancer Depression Hypertension Hypothyroidism Non-smoker Home Medications fluoxetine 20 mg PO DAILY 08/01/17 [History Last Taken 09/05/18] levothyroxine 137 mcg PO DAILY 08/01/17 [History Last Taken 03/02/21 06:00] lisinopril [Zestril] 30 mg PO DAILY 08/01/17 [History Last Taken 03/02/21 06:00] omeprazole 20 mg PO DAILY 11/14/18 [History Last Taken 03/02/21 06:00] capecitabine [Xeloda] 1,500 mg PO QWEEK 12/27/19 [History Last Taken 02/23/21] sucralfate [Carafate] 1 g PO BID #60 tab 03/17/21 [Rx Last Taken Unknown] Zofran 4 mg Q6H 08/11/21 [History Last Taken Unknown] tizanidine 4 mg PO Q8H PRN 08/11/21 [History Last Taken Unknown] Allergy/AdvReac Type Severity Reaction Status Date / Time No Known Allergies Allergy Verified 08/11/21 20:37 Social History Smoking Status: Never smoker ROS ROS ED Constitutional Constitutional ED: Denies chills or fever(s) ENT ENT ED: Reports rhinorrhea; Denies sore throat Cardiovascular Cardiovascular: Denies chest pain Respiratory/Chest Respiratory/Chest: Reports cough; Denies dyspnea Gastrointestinal Gastrointestinal: Reports abdominal pain, nausea and vomiting; Denies diarrhea Genitourinary Genitourinary ED: Denies dysuria Musculoskeletal Musculoskeletal: Reports back pain; Denies myalgias Integumentary Denies rash Neurologic Neurologic: Denies headache(s) Hematologic/Lymphatic Hematologic/Lymphatic: Denies easy bleeding or easy bruising EXAM Physical Exam Const Vital Signs: 08/11/21 20:38 Temperature 99.1 F Temperature Source Temporal Pulse Rate 91 Respiratory Rate 18 Blood Pressure 158/79 H Blood Pressure Mean 105 Pulse Ox 97 Oxygen Delivery Method Room Air Positive well nourished and well developed General Appearance ED: well developed HEENT HEENT Narrative: Mucous membranes are dry and tacky Eyes PERRL and EOMs intact bilaterally Neck supple Chest Wall palpation of chest normal Resp normal respiratory effort and clear to auscultation bilaterally Cardio regular rate and regular rhythm Rate: other Other Details: Radial pulses are plus 2 out of 4 bilaterally are equal and symmetric GI non-tender and non-distended GI Narrative: Abdomen is soft nontender and nondistended with hyperactive bowel sounds. No voluntary guarding or rigidity no pulsatile mass no increased tympany Palpation: soft Back/Spine no CVA tenderness Extremity normal to inspection Neuro oriented x3 and CN's II-XII intact bilaterally Sensorium / Orientation: alert Psych mental status grossly normal Skin no rashes or lesions noted Skin Narrative: Skin turgor is slightly increased MDM MDM MDM Narrative Medical decision making narrative: Patient presented to the ER with stable vitals and a soft nonsurgical abdomen so I felt no need for an emergent CT scan. She reported she was diagnosed with Covid on Sunday as well. The report of vomiting multiple hours after eating does not correlate with a food intolerance and therefore I feel this is most likely related to Covid gut. Basic labs were obtained which show abnormalities that are at patient's baseline but no clinically significant findings. Patient was given IV fluids morphine and Zofran on reevaluation reported resolution of symptoms and had no bouts of vomiting while in the ER. Therefore at this time patient is safe for discharge and can follow-up on an outpatient basis Lab Data Attestation: I reviewed the patient's lab results. Labs: Laboratory Results - last 24 hr 08/11/21 08/11/21 20:58 20:58 WBC 4.3 L RBC 4.08 L Hgb 13.1 Hct 38.8 MCV 95.1 MCH 32.1 H MCHC 33.8 RDW Std Deviation 52.8 H RDW Coeff of Halima 15.2 H Plt Count 70 L MPV 11.9 Immature Gran % (Auto) 0.500 Neut % (Auto) 78.2 H Lymph % (Auto) 15.3 L [place] % (Auto) 4.9 Eos % (Auto) 0.9 Baso % (Auto) 0.2 Absolute Neuts (auto) 3.4 Absolute Lymphs (auto) 0.66 L Nucleated RBC % 0 Differential Comment SCANNED Platelet Estimate MOD DEC Anisocytosis 1+ Sodium 140 Potassium 3.9 Chloride 109 H Carbon Dioxide 27.0 Anion Gap 4 L BUN 10 Creatinine 0.74 Estim Creat Clear Calc 53.81 Est GFR (MDRD) Af Amer 102 Est GFR (MDRD) Non-Af 84 BUN/Creatinine Ratio 13.6 Glucose 130 H Calcium 9.2 Magnesium 1.8 Lipase 99 Discharge Plan Triage Chief Complaint: Nausea/Vomiting ED Provider: Joe Monsalve Dx/Rx/DC Orders Clinical Impression: Nausea and vomiting, COVID-19 Instructions: Coronavirus Disease 2019 (COVID-19): Caring for Yourself or Others, Nausea Vomit Control Prescriptions: No Action levothyroxine 137 MCG tablet 137 mcg PO DAILY RF: 0 fluoxetine 10 MG capsule 20 mg PO DAILY RF: 0 lisinopril [Zestril] 2.5 MG tablet 30 mg PO DAILY RF: 0 omeprazole 20 MG capsule 20 mg PO DAILY RF: 0 capecitabine [Xeloda] 500 MG tablet 1,500 mg PO QWEEK RF: 0 sucralfate [Carafate] 1 gram tablet 1 g PO BID Qty: 60 RF: 0 Zofran 4 mg Q6H RF: 0 tizanidine 4 mg Capsule 4 mg PO Q8H PRN (Reason: Muscle Spasm) RF: 0 Primary Care Provider: Kimberly Ruelas Referrals: Kimberly Ruelas MD [Primary Care Provider] - Disposition Disposition: Home, Self Care
[2021-08-11] MEDS: 0.9% Normal Saline 1,000 ML 999 ML IV (21:39)
[2021-08-11 21:43] LABS: Absolute Lymphocyte Count 0.66 X10^3/uL (0.83-4.51); Absolute Neutrophil Count 3.4 X10^3/uL (2.0-7.7); Basophil# 0.01 X10^3/uL; Basophil% 0.2 % (0-1); Eosinophil# 0.04 X10^3/uL; Eosinophils% 0.9 % (0-5); Hematocrit 38.8 % (37-47); Hemoglobin 13.1 g/dL (12.0-15.0); Lymphocyte # 0.66 X10^3/ul (0.83-4.51); Lymphocyte % 15.3 % (19-41); Mean Corp Hgb Conc 33.8 g/dL (32-36); Mean Corpuscular Hgb 32.1 pg (27.0-32.0); Mean Corpuscular Volume 95.1 fL (81-99); Mean Platelet Vol. 11.9 fl (6.2-12.0); Monocyte# 0.21 X10^3/uL; Monocyte% 4.9 % (0-10); NRBC Flagged by Analyzer 0 % (0-5); Neutrophil # 3.38 X10^3/uL (2.7-7.7); Neutrophil % 78.2 % (47-70); POSITIVE COUNT YES; Platelet Count 70 K/mm3 (150-450); RBC Distribution Width CV 15.2 % (11.6-14.6); RBC Distribution Width SD 52.8 fl (35.1-43.9); Red Blood Count 4.08 M/mm3 (4.2-5.4); White Blood Count 4.3 K/mm3 (4.4-11.0)
[2021-08-11] MEDS: Morphine 4 MG/ML Syringe IV (21:45)
[2021-08-11] MEDS: Ondansetron 4 MG/2 ML Vial IV (21:45)
[2021-08-11 21:51] LABS: Anion Gap 4 (5-15); BUN 10 mg/dL (7-18); BUN/Creat Ratio 13.6 RATIO (10-20); Calcium,Total 9.2 mg/dL (8.5-10.1); Chloride 109 mmol/L (98-107); Creatinine, Serum 0.74 mg/dL (0.55-1.02); EST Glomerular Filtration Rate 84 mL/min (>60); Est Glom Filt Rate - Afr Amer 102 mL/min (>60); Estimated Creatinine Clearance 53.81 ml/min; Glucose 130 mg/dL (74-106); Lipase 99 U/L (73-393); Magnesium 1.8 mg/dL (1.6-2.6); Potassium 3.9 mmol/L (3.5-5.1); Sodium Level 140 mmol/L (136-145)
[2021-08-11 22:17] LABS: Differential Indicated SCAN CRITERIA MET
[2021-08-11 22:37] LABS: Differential Comment SCANNED
[2021-08-11 22:38] LABS: Anisocytosis 1+; Platelet Estimate MOD DEC (ADEQ)
[2021-08-11 23:14] VITALS: BP 122/55; PULSE 60; RESP 18; O2SAT 98
== END 2021-08-11 23:24 | disposition home or self-care (01) ==
PROVIDERS: Emergency Provider Emergency Medicine; PCP Internal Medicine
DX: R11.2 Nausea with vomiting, unspecified (principal); U07.1 COVID-19; F32.9 Major depressive disorder, single episode, unspecified; I10 Essential (primary) hypertension; E03.9 Hypothyroidism, unspecified
CPT/HCPCS: 80048; 83690; 83735; 85025; 96361; 96374; 96375; 99284; J7030; A4216; J2405

== ENCOUNTER 2021-08-25 05:24 | Emergency (ER) | payer MEDICARE, OTHER, SELFPAY ==
[2021-08-25 05:25] VITALS: BP 155/58; PULSE 67; RESP 18; TEMP 36.2; O2SAT 96; BMI 31.4
--- NOTE | 2021-08-25 06:05 | RAD_ITS ---
STUDY: X-RAY CHEST REASON FOR EXAM: Female, 66 years old. back pain TECHNIQUE: Single AP portable view of the chest. COMPARISON: 08/01/2017. CT chest FINDINGS: Stable right subclavian approach port. Stable areas of hyperinflation, scarring in the right base, mild chronic interstitial lung disease. There is no demonstrated pleural abnormality. Normal size heart. There is enlargement of the right hilum and with tubular structures consistent with enlarged right pulmonary veins. Normal visualized pulmonary arteries. There is atherosclerotic calcification of the aortic arch with tortuosity. There are diffuse degenerative changes of the visualized thoracic spine. There is degenerative osteoarthritis of the bilateral shoulders. There is no demonstrated abnormality of the visualized soft tissue structures of the upper abdomen. RAD/Chest 1 View (Portable) IMPRESSION: Chronic-appearing interstitial lung disease, slightly more pronounced on current examination since 2016. Stable scarring in the right base, tubular enlargement of the right hilum consistent with tubular dilatation of right pulmonary veins on CT. No pulmonary edema, congestive heart failure or confluent pneumonia. Electronically Signed: Yojana Epperson MD at 6:45 EDT , Service support ,
--- NOTE | 2021-08-25 06:06 | EKG12_ITS ---
Test Reason : BACK Blood Pressure : / mmHG Vent. Rate : 057 BPM Atrial Rate : 057 BPM P-R Int : 144 ms QRS Dur : 092 ms QT Int : 500 ms P-R-T Axes : 053 000 033 degrees QTc Int : 486 ms Sinus bradycardia Voltage criteria for left ventricular hypertrophy Abnormal ECG Confirmed by MADONNA RADER, NADIA ([id number]), continuity editor DOM BRAMBILA ([id number]) on 08/29/2021 12:13:54 PM Referred By: PERRY Confirmed By:LADONNA PEACOCK MD
--- NOTE | 2021-08-25 06:07 | EDS_ITS ---
HPI History of Present Illness Chief Complaint: Back Detail of Chief Complaint: Back pain she has had for several days. Informant: patient Narrative Narrative: Patient with back pain that started couple days ago. She denies any injury. She describes a burning ache in her back. She denies any pain rating down her legs. The pain is not pleuritic. Patient states that she had Covid in early July and she recovered from that. Last night she had nausea and vomiting x2 and took some Zofran. After she vomited she states the back pain seemed to ease up. She denies urinary symptoms. She denies chest pain or shortness of breath. She has history of hypertension as well as hypothyroidism and depression. Prior similar symptoms: No PFSH PFSH Medical History Cancer Depression Hypertension Hypothyroidism Non-smoker Home Medications fluoxetine 20 mg PO DAILY 08/01/17 [History Last Taken 09/05/18] levothyroxine 137 mcg PO DAILY 08/01/17 [History Last Taken 03/02/21 06:00] lisinopril [Zestril] 30 mg PO DAILY 08/01/17 [History Last Taken 03/02/21 06:00] omeprazole 20 mg PO DAILY 11/14/18 [History Last Taken 03/02/21 06:00] capecitabine [Xeloda] 1,500 mg PO QWEEK 12/27/19 [History Last Taken 02/23/21] sucralfate [Carafate] 1 g PO BID #60 tab 03/17/21 [Rx Last Taken Unknown] Zofran 4 mg Q6H 08/11/21 [History Last Taken Unknown] tizanidine 4 mg PO Q8H PRN 08/11/21 [History Last Taken Unknown] hydrocodone-acetaminophen 1 tab PO Q4H PRN PRN 2 Days #15 tablet 08/25/21 [Rx Last Taken Unknown] Allergy/AdvReac Type Severity Reaction Status Date / Time No Known Allergies Allergy Verified 08/25/21 05:27 Social History Smoking Status: Never smoker ROS ROS ED Constitutional Constitutional ED: Reports systems reviewed and no addt'l complaints, except as documented; Denies body ache(s), change in weight or chills Eyes Eyes: Denies acute decrease in peripheral vision, change in vision, double vision or loss of vision ENT ENT ED: Reports none; Denies ear pain, lip swelling, loss taste/smell, neck pain, otalgia or sore throat Cardiovascular Cardiovascular: Reports none; Denies abdominal pain, chest pain with activity, leg edema, lightheadedness, palpitations, rapid heart rate or syncope Respiratory/Chest Respiratory/Chest: Reports none; Denies change in mental status, dry cough, dyspnea, hemoptysis, shortness of breath at rest or shortness of breath with exertion Gastrointestinal Gastrointestinal: Reports none, nausea and vomiting; Denies abdominal pain, change in stool character, diarrhea, hematemesis, hematochezia, melena or rectal bleeding Genitourinary Genitourinary ED: Reports none; Denies abdominal discomfort, anuria, dysuria, genital pain or polyuria Musculoskeletal Musculoskeletal: Reports none and back pain; Denies arthralgias, difficulty walking, extremity pain, muscle weakness or myalgias Integumentary Reports none; Denies abscess or rash Neurologic Neurologic: Reports none; Denies abnormal gait, confusion, focal weakness, frequent falls, headache(s), loss of vision, numbness, paresthesias, radicular pain, vertigo or weakness Psychiatric Psychiatric: Reports systems reviewed and no addt'l complaints, except as documented and none; Denies behavioral changes, confusion, difficulty concentrating, hallucinations, suicidal ideation, tactile hallucinations or visual hallucinations Endocrine Endocrinology: Denies none, cold intolerance, excessive sweating, fatigue or heat intolerance Hematologic/Lymphatic Hematologic/Lymphatic: Reports none; Denies anemia, easy bleeding or easy bruising Allergic/Immunologic Allergic/Immunologic ED: Denies as per HPI, none, lip swelling, mouth swelling, throat swelling, tongue swelling or hives EXAM Physical Exam Const Vital Signs: 08/25/21 05:25 Temperature 97.2 F L Temperature Source Temporal Pulse Rate 67 Respiratory Rate 18 Blood Pressure 155/58 H Blood Pressure Mean 90 Pulse Ox 96 Oxygen Delivery Method Room Air Positive well nourished and well developed General Appearance ED: well developed and NAD HEENT Reports TM's clear and moist mucous membranes normocephalic and atraumatic; Negative for trauma or tenderness Tympanic Membrane ED: Yes TM's clear Eyes PERRL and EOMs intact bilaterally General Eye ED: Negative for pale conjunctiva or scleral icterus Neck no lymphadenopathy, supple and no JVD General: Negative for tenderness Chest Wall inspection of chest normal and palpation of chest normal Chest: Negative for tenderness Resp normal respiratory effort and clear to auscultation bilaterally Effort and Inspection: Negative for respiratory distress or pain with movement Auscultation: Negative for rhonchi, wheezes or diminished lung sounds Cardio regular rate, regular rhythm, S1 normal heart sound, S2 normal heart sound and no murmurs Peripheral Pulses: pulses 2+ throughout GI normal to inspection, nondistended, normoactive bowel sounds, soft to palpation, non-tender, non-distended and no masses Back/Spine no CVA tenderness and no thoracic nor lumbar tenderness Extremity normal to inspection General Extremety ED: Negative for edema General Extremity: Negative for edema Neuro oriented x3, CN's II-XII intact bilaterally, no sensory deficits noted and gait normal Sensorium / Orientation: awake, alert, oriented to person, oriented to place and oriented to time Motor Exam: strength 5/5 throughout and strength abnormal Psych mental status grossly normal Skin no rashes or lesions noted and no wounds MDM MDM MDM Narrative Medical decision making narrative: IV line established on arrival. Patient was medicated with Dilaudid 1 mg IV as well as Zofran 4 mg IV. Patient started complaining of feeling woozy and dizzy after the Dilaudid. Patient's work-up in the department is unremarkable. Etiology of her pain I suspect may be musculoskeletal as no other etiology has been found for her back pain. There is no radiculopathic symptoms or signs. Patient will be given a prescription for few [place] for pain and advised to be care physician in 3 to 5 days. Lab Data Attestation: I reviewed the patient's lab results. Labs: Laboratory Results - last 24 hr 08/25/21 08/25/21 08/25/21 06:20 06:20 06:20 WBC 5.3 RBC 3.93 L Hgb 12.7 Hct 36.5 L MCV 92.9 MCH 32.3 H MCHC 34.8 RDW Std Deviation 50.3 H RDW Coeff of Halima 14.8 H Plt Count 75 L MPV 11.7 Immature Gran % (Auto) 0.200 Neut % (Auto) 76.8 H Lymph % (Auto) 13.3 L [place] % (Auto) 7.4 Eos % (Auto) 2.1 Baso % (Auto) 0.2 Absolute Neuts (auto) 4.1 Absolute Lymphs (auto) 0.70 L Nucleated RBC % 0 D-Dimer Quant (PE/DVT) 0.99 H* Sodium 140 Potassium 4.4 Chloride 106 Carbon Dioxide 27.0 Anion Gap 7 BUN 10 Creatinine 0.71 Estim Creat Clear Calc 53.09 Est GFR (MDRD) Af Amer 106 Est GFR (MDRD) Non-Af 88 BUN/Creatinine Ratio 14.1 Glucose 116 H Calcium 9.2 Total Bilirubin 1.30 H AST 32 ALT 16 Alkaline Phosphatase 146 H Troponin I High Sens 21 Total Protein 6.8 Albumin 3.2 Globulin 3.6 Albumin/Globulin Ratio 0.9 Lipase 64 L Urine Color Urine Clarity Urine pH Ur Specific [place] Urine Protein Urine Glucose (UA) Urine Ketones Urine Occult Blood Urine Nitrite Urine Bilirubin Urine Urobilinogen Ur Leukocyte Esterase Urine RBC Urine WBC Ur Squamous Epith Cells Ur Renal Epithelial Cell Urine Bacteria Urine Mucus 08/25/21 06:38 WBC RBC Hgb Hct MCV MCH MCHC RDW Std Deviation RDW Coeff of Halima Plt Count MPV Immature Gran % (Auto) Neut % (Auto) Lymph % (Auto) [place] % (Auto) Eos % (Auto) Baso % (Auto) Absolute Neuts (auto) Absolute Lymphs (auto) Nucleated RBC % D-Dimer Quant (PE/DVT) Sodium Potassium Chloride Carbon Dioxide Anion Gap BUN Creatinine Estim Creat Clear Calc Est GFR (MDRD) Af Amer Est GFR (MDRD) Non-Af BUN/Creatinine Ratio Glucose Calcium Total Bilirubin AST ALT Alkaline Phosphatase Troponin I High Sens Total Protein Albumin Globulin Albumin/Globulin Ratio Lipase Urine Color Yellow Urine Clarity Clear Urine pH 7.0 Ur Specific [place] 1.010 Urine Protein 15 H Urine Glucose (UA) Normal Urine Ketones Negative Urine Occult Blood 25 H Urine Nitrite Negative Urine Bilirubin Negative Urine Urobilinogen 4 H Ur Leukocyte Esterase 100 H Urine RBC 0-5 SEEN Urine WBC 0-5 SEEN Ur Squamous Epith Cells 0-5 SEEN Ur Renal Epithelial Cell 0-5 SEEN Urine Bacteria 2+ Urine Mucus 1+ Radiography Diagnostic Testing: Clinical Impression(s) from Imaging Studies Chest X-Ray 08/25/21 06:05 IMPRESSION: Chronic-appearing interstitial lung disease, slightly more pronounced on current examination since 2017. Stable scarring in the right base, tubular enlargement of the right hilum consistent with tubular dilatation of right pulmonary veins on CT. No pulmonary edema, congestive heart failure or confluent pneumonia. Electronically Signed: Yojana Epperson MD at 6:45 EDT , Service support , Chest CTA 08/25/21 07:00 IMPRESSION: No demonstrated pulmonary embolism or arterial dissection. No pulmonary edema, congestive heart failure or confluent pneumonia. Stable pulmonary venous enlargement right side with apparent enlargement of hilum on chest x-ray. Stable postsurgical changes, postsurgical liver changes, splenomegaly, varices and other findings as above. Electronically Signed: Yojana Epperson MD at 7:58 EDT , Service support , 1 view chest x-ray obtained interpreted by myself as no acute disease process. Radiology felt there was chronic appearing interstitial lung disease. EKG Initial EKG: Attestation: I personally reviewed and interpreted this EKG as follows: Comments: Sinus bradycardia with a ventricular rate of 57 bpm with LVH criteria Discharge Plan Triage Chief Complaint: Back Other Complaint: Nausea/Vomiting ED Provider: Rios Pfeiffer Dx/Rx/DC Orders Clinical Impression: Back pain Instructions: ED Back Pain (Acute or Chronic) Prescriptions: New hydrocodone-acetaminophen [hydrocodone-acetaminophen] 1 TABLET tablet 1 tab PO Q4H PRN PRN (Reason: Pain) 2 Days Qty: 15 RF: 0 No Action levothyroxine 137 MCG tablet 137 mcg PO DAILY RF: 0 fluoxetine 10 MG capsule 20 mg PO DAILY RF: 0 lisinopril [Zestril] 2.5 MG tablet 30 mg PO DAILY RF: 0 omeprazole 20 MG capsule 20 mg PO DAILY RF: 0 capecitabine [Xeloda] 500 MG tablet 1,500 mg PO QWEEK RF: 0 sucralfate [Carafate] 1 gram tablet 1 g PO BID Qty: 60 RF: 0 Zofran 4 mg Q6H RF: 0 tizanidine 4 mg Capsule 4 mg PO Q8H PRN (Reason: Muscle Spasm) RF: 0 Primary Care Provider: Kimberly Ruelas Referrals: Kimberly Ruelas MD [Primary Care Provider] - 3-5 Days Disposition Disposition: Home, Self Care
[2021-08-25 06:32] LABS: Absolute Neutrophil Count 4.1 X10^3/uL (2.0-7.7); Basophil# 0.01 X10^3/uL; Basophil% 0.2 % (0-1); Eosinophil# 0.11 X10^3/uL; Eosinophils% 2.1 % (0-5); Hematocrit 36.5 % (37-47); Hemoglobin 12.7 g/dL (12.0-15.0); Lymphocyte % 13.3 % (19-41); Mean Corp Hgb Conc 34.8 g/dL (32-36); Mean Corpuscular Hgb 32.3 pg (27.0-32.0); Mean Corpuscular Volume 92.9 fL (81-99); Mean Platelet Vol. 11.7 fl (6.2-12.0); Monocyte# 0.39 X10^3/uL; Monocyte% 7.4 % (0-10); NRBC Flagged by Analyzer 0 % (0-5); Neutrophil # 4.06 X10^3/uL (2.7-7.7); Neutrophil % 76.8 % (47-70); POSITIVE COUNT YES; Platelet Count 75 K/mm3 (150-450); RBC Distribution Width CV 14.8 % (11.6-14.6); RBC Distribution Width SD 50.3 fl (35.1-43.9); Red Blood Count 3.93 M/mm3 (4.2-5.4); White Blood Count 5.3 K/mm3 (4.4-11.0)
[2021-08-25] MEDS: 0.9% Normal Saline 1,000 ML 150 ML IV (06:39)
[2021-08-25] MEDS: HYDROmorphone 1 MG/ML Syringe IV (06:39)
[2021-08-25] MEDS: Ondansetron 4 MG/2 ML Vial IV (06:39)
[2021-08-25 06:44] LABS: Color, Urine Yellow (Yellow); Glucose, Dipstick Normal (Normal); Ketone-Dipstick Negative (Negative); Leukocyte Esterase-Dipstick 100 /ul (Negative); Nitrite-Dipstick Negative (Negative); Occult Blood-Urine 25 /ul (Negative); Protein-Dipstick 15 mg/dl (Negative); Urine Bilirubin Dipstick Negative (Negative); Urine Clarity Clear (Clear); Urine Urobilinogen 4 mg/dl (Normal)
[2021-08-25 06:52] LABS: ALB/GLOB Ratio 0.9 RATIO (0.9-2.4); AST(SGOT) 32 U/L (15-37); Alanine Aminotransfer ALT/SGPT 16 U/L (13-56); Albumin, Serum 3.2 g/dL (3.2-5.0); Alkaline Phosphatase 146 U/L (45-117); Anion Gap 7 (5-15); BUN 10 mg/dL (7-18); BUN/Creat Ratio 14.1 RATIO (10-20); Calcium,Total 9.2 mg/dL (8.5-10.1); Chloride 106 mmol/L (98-107); Creatinine, Serum 0.71 mg/dL (0.55-1.02); EST Glomerular Filtration Rate 88 mL/min (>60); Est Glom Filt Rate - Afr Amer 106 mL/min (>60); Estimated Creatinine Clearance 53.09 ml/min; Globulin 3.6 g/dL (2.2-4.2); Glucose 116 mg/dL (74-106); Lipase 64 U/L (73-393); Potassium 4.4 mmol/L (3.5-5.1); Protein, Total 6.8 g/dL (6.4-8.2); Sodium Level 140 mmol/L (136-145); Troponin-I HS 21 pg/mL (3.0-54.0)
[2021-08-25 06:53] LABS: Bacteria 2+ /hpf (None Seen); Mucous, Urine 1+ /hpf (<or=2+); Red Blood Cells-Urine 0-5 SEEN /hpf (0-5); Renal Epithelial Cells 0-5 SEEN /hpf (0-5); Squamous Epithelial Cells - UA 0-5 SEEN /hpf (5-10); White Blood Cells 0-5 SEEN /hpf (0-5)
[2021-08-25 06:56] LABS: D-Dimer Quantitative (DVT/PE) 0.99 FEU/ug/m (0.27-0.49)
--- NOTE | 2021-08-25 07:00 | CT_ITS ---
STUDY: CTA CHEST REASON FOR EXAM: Female, 66 years old. elevated d-dimer RADIATION DOSAGE (If Supplied By Facility): CTDIvol = ( 14.15 ) mGy, DLP = ( 442.89 ) mGycm TECHNIQUE: The examination was performed with the intravenous administration of IV 100mL Isovue-370. Post-processing of the angiographic images was performed, with multiplanar reformation and 3D reconstruction. Individualized dose optimization techniques were used for this CT. COMPARISON: Portable chest x-ray 08/25/2021. The chest contrast 05/22/2021 FINDINGS: Contrast injection via the left upper extremity with dense contrast coursing along the left subcostal vein, draining into the left paraspinal/hemiazygos and into the azygos vein. There is contrast enhancement of the superior vena cava. Right anterior chest wall port with catheter tip at the cavoatrial junction. Normal enhancement of the main pulmonary artery and right and left pulmonary arteries. Normal enhancement of the bilateral peripheral pulmonary arteries. There is no demonstrated pulmonary embolism. Stable tortuosity and dilation of the right superior and inferior and left superior pulmonary vein. Normal thoracic aorta and visualized great vessels. There is no demonstrated aortic dissection. Normal heart and pericardium. Normal mediastinum. Normal hilar regions. Normal visualized trachea and bronchi. The lungs are well expanded. Normal pulmonary parenchyma. Normal pleura. Normal chest wall structures. There are stable mild degenerative changes of thoracic spine and mild kyphosis. Postsurgical changes of the hepatic dome, resection of right liver parenchyma, anterior abdominal wall hernia, splenomegaly, elevated positioning of the right kidney posterior to the liver in the subdiaphragmatic space with incompletely imaged posterior hernia. Incompletely imaged splenorenal varices. Subcentimeter low attenuation in the hepatic dome a tubular and likely nonenhancing vasculature, stable since previous exam. CT/CTA Chest W/WO Contrast IMPRESSION: No demonstrated pulmonary embolism or arterial dissection. No pulmonary edema, congestive heart failure or confluent pneumonia. Stable pulmonary venous enlargement right side with apparent enlargement of hilum on chest x-ray. Stable postsurgical changes, postsurgical liver changes, splenomegaly, varices and other findings as above. Electronically Signed: Yojana Epperson MD at 7:58 EDT , Service support ,
== END 2021-08-25 08:44 | disposition home or self-care (01) ==
PROVIDERS: Emergency Provider Emergency Medicine; PCP Internal Medicine
DX: M54.9 Dorsalgia, unspecified (principal); J84.9 Interstitial pulmonary disease, unspecified; R16.1 Splenomegaly, not elsewhere classified; R11.2 Nausea with vomiting, unspecified; I10 Essential (primary) hypertension; E03.9 Hypothyroidism, unspecified; F32.A Depression, unspecified; Z86.16 Personal history of COVID-19
CPT/HCPCS: 71045; 71275; 80053; 81001; 83690; 84484; 85025; 85379; 93005; 96361; 96374; 96375; 99285; J7030; Q9967; A4216; J2405

== ENCOUNTER 2021-09-02 19:22 | Emergency (ER) | payer MEDICARE, OTHER, SELFPAY ==
[2021-09-02 19:22] VITALS: BP 167/80; PULSE 86; RESP 18; TEMP 37.1; O2SAT 98; BMI 31.3
--- NOTE | 2021-09-02 20:58 | EKG12_ITS ---
Test Reason : DYSRHYTHMIA Blood Pressure : / mmHG Vent. Rate : 074 BPM Atrial Rate : 074 BPM P-R Int : 154 ms QRS Dur : 086 ms QT Int : 420 ms P-R-T Axes : 065 001 028 degrees QTc Int : 466 ms Normal sinus rhythm Normal ECG Confirmed by MYNOR RADER, ARCHANA ([id number]), scientific publications editor DOM BRAMBILA ([id number]) on 09/06/2021 8:42:58 AM Referred By: MONTRELL Confirmed By:ARCHANA LOWE MD
--- NOTE | 2021-09-02 20:59 | ED.VIS.BACK ---
HPI History of Present Illness Chief Complaint: Nausea/Vomiting Narrative Narrative: 56-year-old female presenting with burning all over her upper back. She states this is been ongoing for the whole day. She has been vomiting all day and states she is unable to hold anything down. She has Zofran at home and states that this did not help. She also took some House that was given to her at her last ED visit she states she vomited these up. She states it has been about 12 hours of symptoms. She sees Dr. Egan for history of colon cancer. She is on Xeloda and she is unsure if this is causing her symptoms. She has been off it this week. But she was on last week when she was in the emergency room and had a full cardiac work-up. She states she was able to go home after that. Patient does have a history of GERD. She does state that her throat is burning. She denies drew chest pain or pressure. Has not had a fever or chills. She denies urinary complaints. She has no diarrhea. PFSH PFSH Medical History Cancer Depression Hypertension Hypothyroidism Non-smoker Home Medications acetaminophen [Tylenol] 650 mg PO Q4H PRN 09/02/21 [History Last Taken Unknown] buspirone 10 mg PO BID 09/02/21 [History Last Taken Unknown] doxazosin 1 mg PO QHS 09/02/21 [History Last Taken Unknown] famotidine 20 mg PO BID 09/02/21 [History Last Taken Unknown] lorazepam [Ativan] 1 mg PO BID PRN 09/02/21 [History Last Taken Unknown] memantine 10 mg PO BID 09/02/21 [History Last Taken Unknown] ondansetron HCl [Zofran] 8 mg PO Q8H PRN 09/02/21 [History Last Taken Unknown] oxcarbazepine 300 mg PO BID 09/02/21 [History Last Taken Unknown] pilocarpine HCl 5 mg PO TID 09/02/21 [History Last Taken Unknown] promethazine 25 mg PO TID PRN #14 tab 09/02/21 [Rx Last Taken Unknown] sertraline 75 mg PO DAILY 09/02/21 [History Last Taken Unknown] sodium chloride 1,000 mg PO DAILY 09/02/21 [History Last Taken Unknown] Allergy/AdvReac Type Severity Reaction Status Date / Time No Known Allergies Allergy Verified 08/25/21 05:27 Social History Smoking Status: Never smoker ROS ROS ED Constitutional Constitutional ED: Denies chills or fever(s) Eyes Eyes: Denies blurry vision or change in vision ENT ENT ED: Denies rhinorrhea or sore throat Cardiovascular Cardiovascular: Denies chest pain or palpitations Respiratory/Chest Respiratory/Chest: Denies dyspnea or sputum Gastrointestinal Gastrointestinal: Reports nausea and vomiting; Denies constipation or diarrhea Genitourinary Genitourinary ED: Denies dysuria or hematuria Musculoskeletal Musculoskeletal: Denies arthralgias or myalgias Integumentary Denies Abrasions or rash Neurologic Neurologic: Denies headache(s) or paresthesias EXAM Physical Exam Const Vital Signs: 09/02/21 19:22 09/02/21 21:14 09/02/21 23:05 Temperature 98.8 F Temperature Source Temporal Pulse Rate 86 75 79 Respiratory Rate 18 26 H 24 H Blood Pressure 167/80 H Blood Pressure Mean 109 Pulse Ox 98 100 98 Oxygen Delivery Method Room Air Room Air Room Air 09/02/21 23:21 Temperature Temperature Source Pulse Rate 66 Respiratory Rate Blood Pressure Blood Pressure Mean Pulse Ox Oxygen Delivery Method Positive well nourished General Appearance ED: NAD; Negative for pallor HEENT Reports moist mucous membranes Negative for trauma Eyes PERRL and EOMs intact bilaterally Chest Wall Chest: other No reproducible tenderness. Resp normal respiratory effort and clear to auscultation bilaterally Cardio regular rate and regular rhythm GI normal to inspection, nondistended, normoactive bowel sounds Back/Spine normal to inspection and no thoracic nor lumbar tenderness Extremity normal to inspection General Extremety ED: Negative for tenderness Psych mental status grossly normal Skin no rashes or lesions noted General Skin Exam: Negative for jaundice or pallor MDM MDM MDM Narrative Medical decision making narrative: Patient presenting with back pain patient describes it as burning. Patient has recently been seen for this and had a work-up done including a CTA and cardiac enzymes which was all negative. Patient states that this started again today. She had concern that this could possibly be a side effect of her Xeloda however she is not on that this week. She does that every other week. Given the location of the patient's pain diffusely over the back and burning in nature I did obtain an EKG which shows a normal sinus rhythm with a ventricular rate of 74 bpm without sign of ischemic change as interpreted by myself. Chest x-ray on my interpretation shows no acute cardiopulmonary process and the radiologist does agree. CBC, CMP, lipase are all within normal limits with exception of a mildly elevated total bilirubin of 1.10. Patient was given morphine and Zofran for pain and nausea respectively and did improve. After her negative work-up I did review the medical record and noted that she had a diagnosed history of acid reflux and has been on a PPI and Carafate. Her symptoms started this morning. She stated that last night she had pasta with red sauce and woke up with the symptoms. Given the patient's history I do think this is the likely cause because she has had 2 cardiac work-ups which were normal and a CTA which ruled out PE or dissection. Patient symptoms are currently improved. Patient requests promethazine for home because her Zofran is not working I counseled her that she would need some diet modification to see if this would help her with her symptoms. She acknowledges understanding. Patient will be discharged home in stable condition. Impression: 1. Back pain 2. Dyspepsia 3. Nausea/vomiting Lab Data Labs: Laboratory Results - last 24 hr 09/02/21 09/02/21 21:16 21:16 WBC 5.2 RBC 4.24 Hgb 13.6 Hct 39.4 MCV 92.9 MCH 32.1 H MCHC 34.5 RDW Std Deviation 47.9 H RDW Coeff of Halima 14.4 Plt Count 93 L MPV 12.2 H Immature Gran % (Auto) 0.400 Neut % (Auto) 85.4 H Lymph % (Auto) 8.8 L [place] % (Auto) 4.4 Eos % (Auto) 0.6 Baso % (Auto) 0.4 Absolute Neuts (auto) 4.5 Absolute Lymphs (auto) 0.46 L Nucleated RBC % 0 Differential Comment SEE COMMENT Platelet Estimate MOD DEC RBC Morphology N CHROM Anisocytosis RARE Macrocytosis RARE Sodium 138 Potassium 4.3 Chloride 106 Carbon Dioxide 25.0 Anion Gap 7 BUN 13 Creatinine 0.76 Estim Creat Clear Calc 53.09 Est GFR (MDRD) Af Amer 98 Est GFR (MDRD) Non-Af 81 BUN/Creatinine Ratio 17.2 Glucose 126 H Calcium 9.2 Total Bilirubin 1.10 H Direct Bilirubin 0.39 H AST 26 ALT 19 Alkaline Phosphatase 168 H Troponin I High Sens 34 Total Protein 7.5 Albumin 3.7 Globulin 3.8 Lipase 53 L Radiography Diagnostic Testing: Clinical Impression(s) from Imaging Studies Chest X-Ray 09/02/21 21:20 IMPRESSION: Normal x-ray examination of the chest. Electronically Signed: Augustus Reyes DO at 21:44 EDT Tel [phone], Service support , Discharge Plan Triage Chief Complaint: Nausea/Vomiting Other Complaint: Back ED Provider: Richard Shannon Dx/Rx/DC Orders Instructions: ED GERD (Adult), ED Vomiting (Adult) Prescriptions: New promethazine 25 mg tablet 25 mg PO TID PRN (Reason: nausea and vomiting) Qty: 14 RF: 0 No Action pilocarpine HCl 5 mg Tablet 5 mg PO TID RF: 0 acetaminophen [Tylenol] 325 mg Tablet 650 mg PO Q4H PRN (Reason: Pain) RF: 0 doxazosin 1 mg Tablet 1 mg PO QHS RF: 0 ondansetron HCl [Zofran] 8 mg Tablet 8 mg PO Q8H PRN (Reason: Nausea) RF: 0 sodium chloride 1 gram Tablet 1,000 mg PO DAILY RF: 0 oxcarbazepine 300 mg Tablet 300 mg PO BID RF: 0 famotidine 20 mg Tablet 20 mg PO BID RF: 0 buspirone 10 mg Tablet 10 mg PO BID RF: 0 lorazepam [Ativan] 1 mg Tablet 1 mg PO BID PRN (Reason: Anxiety) RF: 0 sertraline 50 mg Tablet 75 mg PO DAILY RF: 0 memantine 5 mg Tablet 10 mg PO BID RF: 0 Primary Care Provider: Kimberly Ruelas Referrals: Kimberly Ruelas MD [Primary Care Provider] - Disposition Disposition: Home, Self Care Discharge Date/Time: 09/02/21 23:22
[2021-09-02] MEDS: proMETHazine 25 MG/ML Syringe 12.5 MG IM (21:09)
[2021-09-02] MEDS: 0.9% Normal Saline 1,000 ML 1000 ML IV (21:09)
[2021-09-02] MEDS: Morphine 4 MG/ML Syringe IV (21:09)
[2021-09-02 21:14] VITALS: PULSE 75; RESP 26; O2SAT 100
--- NOTE | 2021-09-02 21:20 | RAD_ITS ---
STUDY: X-RAY CHEST REASON FOR EXAM: Female, 66 years old. Chest pain TECHNIQUE: Frontal view COMPARISON: 08/25/2021. FINDINGS: A right venous port is again noted. The lungs are clear and expanded. There is no demonstrated pleural abnormality. Normal size heart. Normal mediastinum and merlene. Normal visualized pulmonary arteries. Normal visualized aortic arch and descending thoracic aorta. Degenerative changes of the thoracic spine. Normal visualized ribs, clavicles, and shoulders. There is no demonstrated abnormality of the visualized soft tissue structures of the upper abdomen. RAD/Chest 1 View (Portable) IMPRESSION: Normal x-ray examination of the chest. Electronically Signed: Augustus Reyes DO at 21:44 EDT Tel [phone], Service support ,
[2021-09-02 21:41] LABS: AST(SGOT) 26 U/L (15-37); Alanine Aminotransfer ALT/SGPT 19 U/L (13-56); Albumin, Serum 3.7 g/dL (3.2-5.0); Alkaline Phosphatase 168 U/L (45-117); Anion Gap 7 (5-15); BUN 13 mg/dL (7-18); BUN/Creat Ratio 17.2 RATIO (10-20); Bilirubin, Direct 0.39 mg/dL (0.00-0.30); Calcium,Total 9.2 mg/dL (8.5-10.1); Chloride 106 mmol/L (98-107); Creatinine, Serum 0.76 mg/dL (0.55-1.02); EST Glomerular Filtration Rate 81 mL/min (>60); Est Glom Filt Rate - Afr Amer 98 mL/min (>60); Estimated Creatinine Clearance 53.09 ml/min; Globulin 3.8 g/dL (2.2-4.2); Glucose 126 mg/dL (74-106); Lipase 53 U/L (73-393); Potassium 4.3 mmol/L (3.5-5.1); Protein, Total 7.5 g/dL (6.4-8.2); Sodium Level 138 mmol/L (136-145); Troponin-I HS 34 pg/mL (3.0-54.0)
[2021-09-02 21:59] LABS: Absolute Lymphocyte Count 0.46 X10^3/uL (0.83-4.51); Absolute Neutrophil Count 4.5 X10^3/uL (2.0-7.7); Basophil# 0.02 X10^3/uL; Basophil% 0.4 % (0-1); Eosinophil# 0.03 X10^3/uL; Eosinophils% 0.6 % (0-5); Hematocrit 39.4 % (37-47); Hemoglobin 13.6 g/dL (12.0-15.0); Lymphocyte # 0.46 X10^3/ul (0.83-4.51); Lymphocyte % 8.8 % (19-41); Mean Corp Hgb Conc 34.5 g/dL (32-36); Mean Corpuscular Hgb 32.1 pg (27.0-32.0); Mean Corpuscular Volume 92.9 fL (81-99); Mean Platelet Vol. 12.2 fl (6.2-12.0); Monocyte# 0.23 X10^3/uL; Monocyte% 4.4 % (0-10); NRBC Flagged by Analyzer 0 % (0-5); Neutrophil # 4.47 X10^3/uL (2.7-7.7); Neutrophil % 85.4 % (47-70); POSITIVE COUNT YES; POSITIVE DIFFERENTIAL YES; Platelet Count 93 K/mm3 (150-450); RBC Distribution Width CV 14.4 % (11.6-14.6); RBC Distribution Width SD 47.9 fl (35.1-43.9); Red Blood Count 4.24 M/mm3 (4.2-5.4); White Blood Count 5.2 K/mm3 (4.4-11.0)
[2021-09-02 22:10] LABS: Differential Indicated SCAN CRITERIA MET
[2021-09-02 22:33] LABS: Anisocytosis RARE; Macrocytosis RARE; Platelet Estimate MOD DEC (ADEQ); Red Cell Morphology N CHROM NORMAL (NORM C&C)
[2021-09-02 23:05] VITALS: PULSE 79; RESP 24; O2SAT 98
[2021-09-02 23:21] VITALS: PULSE 66
== END 2021-09-02 23:22 | disposition home or self-care (01) ==
PROVIDERS: Emergency Provider Student in an Organized Health Care Education/Training Program; PCP Internal Medicine
DX: R11.2 Nausea with vomiting, unspecified (principal); M54.9 Dorsalgia, unspecified; I10 Essential (primary) hypertension; E03.9 Hypothyroidism, unspecified; K21.9 Gastro-esophageal reflux disease without esophagitis; F32.A Depression, unspecified; Z85.038 Personal history of other malignant neoplasm of large intestine
CPT/HCPCS: 71045; 80048; 80076; 83690; 84484; 85025; 93005; 96361; 96372; 96374; 99284; J7030

== ENCOUNTER 2021-09-19 15:39 | Inpatient (IN) | payer MEDICARE, OTHER, SELFPAY ==
[2021-09-19 15:42] VITALS: BP 96/77; PULSE 103; RESP 14; TEMP 37.2; O2SAT 94; BMI 31.3
[2021-09-19 17:40] LABS: ALB/GLOB Ratio 0.8 RATIO (0.9-2.4); AST(SGOT) 25 U/L (15-37); Alanine Aminotransfer ALT/SGPT 17 U/L (13-56); Albumin, Serum 2.9 g/dL (3.2-5.0); Alkaline Phosphatase 149 U/L (45-117); Anion Gap 7 (5-15); BUN 12 mg/dL (7-18); BUN/Creat Ratio 13.8 RATIO (10-20); Calcium,Total 8.1 mg/dL (8.5-10.1); Chloride 104 mmol/L (98-107); Creatinine, Serum 0.87 mg/dL (0.55-1.02); EST Glomerular Filtration Rate 69 mL/min (>60); Est Glom Filt Rate - Afr Amer 84 mL/min (>60); Estimated Creatinine Clearance 61.02 ml/min; Globulin 3.6 g/dL (2.2-4.2); Glucose 188 mg/dL (74-106); Potassium 3.1 mmol/L (3.5-5.1); Protein, Total 6.5 g/dL (6.4-8.2); Sodium Level 135 mmol/L (136-145)
[2021-09-19 17:43] LABS: Absolute Lymphocyte Count 0.06 X10^3/uL (0.83-4.51); Absolute Neutrophil Count 4.9 X10^3/uL (2.0-7.7); Hemoglobin 10.5 g/dL (12.0-15.0); Lymphocyte # 0.06 X10^3/ul (0.83-4.51); Lymphocyte % 1.2 % (19-41); Mean Corpuscular Hgb 32.8 pg (27.0-32.0); Mean Corpuscular Volume 93.8 fL (81-99); Mean Platelet Vol. 12.3 fl (6.2-12.0); Monocyte# 0.23 X10^3/uL; Monocyte% 4.4 % (0-10); NRBC Flagged by Analyzer 0 % (0-5); Neutrophil # 4.89 X10^3/uL (2.7-7.7); POSITIVE COUNT YES; POSITIVE DIFFERENTIAL YES; White Blood Count 5.2 K/mm3 (4.4-11.0)
[2021-09-19 17:50] LABS: Differential Indicated SCAN CRITERIA MET; Platelet Count 32 K/mm3 (150-450)
[2021-09-19 17:50] LABS: Mucous, Urine 0 SEEN /hpf (<or=2+); Red Blood Cells-Urine 0 SEEN /hpf (0-5)
[2021-09-19 17:55] LABS: Color, Urine Yellow (Yellow); Glucose, Dipstick Normal (Normal); Ketone-Dipstick 5 mg/dl (Negative); Leukocyte Esterase-Dipstick 100 /ul (Negative); Nitrite-Dipstick Negative (Negative); Occult Blood-Urine 150 /ul (Negative); Protein-Dipstick 100 mg/dl (Negative); Specific Gravity, Urine 1.015 (1.002-1.030); Urine Clarity Clear (Clear); Urine Urobilinogen 12 mg/dl (Normal); Urine pH 6.5 (5.0 - 8.0)
[2021-09-19 18:05] LABS: Lactic Acid 1.5 mmol/L (0.4-1.9)
[2021-09-19 18:08] LABS: Bacteria 1+ /hpf (None Seen); Squamous Epithelial Cells - UA 0-5 SEEN /hpf (5-10); Urine Bilirubin Dipstick 3 mg/dL (Negative); White Blood Cells 10-25 SEEN /hpf (0-5)
[2021-09-19 18:17] LABS: Anisocytosis RARE; Macrocytosis RARE; Platelet Estimate MKD DEC (ADEQ); Red Cell Morphology N CHROM NORMAL (NORM C&C)
--- NOTE | 2021-09-19 18:35 | EDS_ITS ---
HPI History of Present Illness Chief Complaint: Nausea/Vomiting Detail of Chief Complaint: Per triage nausea and vomiting per patient does not feel well and vomited o Informant: patient Onset/Context/Timing Onset: - (Has not felt well for the past couple of days) Context: - Timing: Continuous Quality: Weakness, one episode of emesis Location: Not applicable/generalized Current Severity: Mild Maximum Severity: Moderate Worsened by: Unknown Relieved by: Nothing Associated Symptoms Associated Symptoms: Read HPI Narrative Narrative: Patient is a 66-year-old woman who presents to the emergency department by ambulance because of generalized weakness. She not a good informant. She denies fever, chills night sweats. She denies headache. She denies double vision, blurred vision loss of vision. She denies loss of taste or smell. Denies sore throat. She denies rhinorrhea or congestion. She denies cough or shortness of breath. Denies chest pain. She had one episode of vomiting. She believes she has urinary tract infection. She denies dysuria, frequency or urgency. When she speaks to me/answers my questions she turns her head to the left and right with her eyes closed. She was asked if she has photophobia. She denied. She is not a good informant. Prior similar symptoms: Yes (With prior UTI per patient) Recent Illness/Hospitalization: No PFSH PFSH Medical History Cancer Depression Hypertension Hypothyroidism Non-smoker Home Medications acetaminophen [Tylenol] 650 mg PO Q4H PRN 09/02/21 [History Last Taken Unknown] buspirone 10 mg PO BID 09/02/21 [History Last Taken Unknown] doxazosin 1 mg PO QHS 09/02/21 [History Last Taken Unknown] famotidine 20 mg PO BID 09/02/21 [History Last Taken Unknown] lorazepam [Ativan] 1 mg PO BID PRN 09/02/21 [History Last Taken Unknown] memantine 10 mg PO BID 09/02/21 [History Last Taken Unknown] ondansetron HCl [Zofran] 8 mg PO Q8H PRN 09/02/21 [History Last Taken Unknown] oxcarbazepine 300 mg PO BID 09/02/21 [History Last Taken Unknown] pilocarpine HCl 5 mg PO TID 09/02/21 [History Last Taken Unknown] promethazine 25 mg PO TID PRN #14 tab 09/02/21 [Rx Last Taken Unknown] sertraline 75 mg PO DAILY 09/02/21 [History Last Taken Unknown] sodium chloride 1,000 mg PO DAILY 09/02/21 [History Last Taken Unknown] Allergy/AdvReac Type Severity Reaction Status Date / Time No Known Allergies Allergy Verified 09/19/21 15:40 Social History (Updated 09/19/21 @ 18:[address] Matt Hairston MD) household members: none Smoking Status: Never smoker substance use type: does not use ROS ROS ED Constitutional Constitutional ED: Denies chills, fever(s), subjective, sweats or weight loss Eyes Eyes: Denies blurry vision, change in vision or diplopia ENT ENT ED: Denies ear pain, rhinorrhea or sore throat Cardiovascular Cardiovascular: Denies chest pain, palpitations or racing heartbeat Respiratory/Chest Respiratory/Chest: Denies cough, dyspnea, dyspnea on exertion or sputum Gastrointestinal Gastrointestinal: Reports nausea and vomiting; Denies abdominal pain, constipation, diarrhea or melena Genitourinary Genitourinary ED: Denies dysuria, hematuria or urinary frequency Musculoskeletal Musculoskeletal: Denies arthralgias, back pain, myalgias or neck pain Integumentary Denies rash Neurologic Neurologic: Reports weakness; Denies headache(s) or paresthesias Endocrine Endocrinology: Denies polydipsia, polyphagia or polyuria Allergic/Immunologic Allergic/Immunologic ED: Denies urticaria EXAM Physical Exam Const Vital Signs: 09/19/21 15:42 Temperature 98.9 F Temperature Source Temporal Pulse Rate 103 H Respiratory Rate 14 Blood Pressure 96/77 Blood Pressure Mean 83 Pulse Ox 94 Oxygen Delivery Method Nasal Cannula Positive well nourished, well developed, obese and unkempt General Appearance ED: unkempt, well developed and other No eye contact her. Turning head to the right and left. Repeating herself ; Negative for pallor Nutritional Appearance: obese HEENT Reports TM's clear and dry mucous membranes Negative for trauma or tenderness Tympanic Membrane ED: Yes TM's clear Mouth ED: Yes dry mucous membranes Mouth: dry mucous membranes Eyes PERRL and EOMs intact bilaterally General Eye ED: Negative for pale conjunctiva or scleral icterus Neck no lymphadenopathy, supple and no JVD Chest Wall inspection of chest normal Resp normal respiratory effort and clear to auscultation bilaterally Cardio regular rate, regular rhythm, S1 normal heart sound, S2 normal heart sound and no murmurs GI normal to inspection, nondistended, normoactive bowel sounds, non-tender and non-distended Palpation: soft Back/Spine Cervical Spine: Negative for cervical spine tenderness Thoracic Spine / Upper Back: Negative for thoracic spinal tenderness or paraspinal muscle tenderness Extremity normal to inspection General Extremety ED: Negative for edema or tenderness General Extremity: Negative for edema Neuro No oriented x3, CN's II-XII intact bilaterally and no sensory deficits noted Sensorium / Orientation: Negative for alert Motor Exam: strength 5/5 throughout Psych Negative for mental status grossly normal Appearance: unkempt Skin no rashes or lesions noted and no wounds General Skin Exam: Negative for jaundice or pallor MDM MDM MDM Narrative Medical decision making narrative: Patient with vague symptoms. Will rule out infectious metabolic cause. Will assess urine. Patient has altered mental status and source of infection. She has an infectious cephalopathy as well as mild hypokalemia and thrombocytopenia. She is also anemic which is new from prior labs. Hospitalist was contacted. Patient is a full admission. She was treated with Rocephin and. Urine culture was obtained. Blood cultures not obtained since she does not have severe sepsis with organ dysfunction. She does have thrombocytopenia however she only has 1 SIRS criteria. Lab Data Attestation: I reviewed the patient's lab results. Lab results narrative: Patient does have evidence of urinary tract infection. With altered mental status will contact hospitalist for admission. Will obtain urine culture and treat with Rocephin since there is no allergy to penicillin or cephalosporin. Labs: Laboratory Results - last 24 hr 09/19/21 09/19/21 09/19/21 15:21 17:30 17:30 WBC 5.2 RBC 3.20 L Hgb 10.5 L Hct 30.0 L MCV 93.8 MCH 32.8 H MCHC 35.0 RDW Std Deviation 51.0 H RDW Coeff of Halima 15.0 H Plt Count 32 L* MPV 12.3 H Immature Gran % (Auto) 0.400 Neut % (Auto) 94.0 H Lymph % (Auto) 1.2 L [place] % (Auto) 4.4 Eos % (Auto) 0.0 Baso % (Auto) 0.0 Absolute Neuts (auto) 4.9 Absolute Lymphs (auto) 0.06 L Nucleated RBC % 0 Differential Comment SEE COMMENT Platelet Estimate MKD DEC RBC Morphology N CHROM Anisocytosis RARE Macrocytosis RARE Sodium 135 L Potassium 3.1 L Chloride 104 Carbon Dioxide 24.0 Anion Gap 7 BUN 12 Creatinine 0.87 Estim Creat Clear Calc 61.02 Est GFR (MDRD) Af Amer 84 Est GFR (MDRD) Non-Af 69 BUN/Creatinine Ratio 13.8 Glucose 188 H Lactic Acid 1.5 Calcium 8.1 L Total Bilirubin 2.70 H AST 25 ALT 17 Alkaline Phosphatase 149 H Total Protein 6.5 Albumin 2.9 L Globulin 3.6 Albumin/Globulin Ratio 0.8 L Urine Color Urine Clarity Urine pH Ur Specific [place] Urine Protein Urine Glucose (UA) Urine Ketones Urine Occult Blood Urine Nitrite Urine Bilirubin Urine Urobilinogen Ur Leukocyte Esterase Urine RBC Urine WBC Ur Squamous Epith Cells Urine Bacteria Urine Mucus 09/19/21 17:40 WBC RBC Hgb Hct MCV MCH MCHC RDW Std Deviation RDW Coeff of Halima Plt Count MPV Immature Gran % (Auto) Neut % (Auto) Lymph % (Auto) [place] % (Auto) Eos % (Auto) Baso % (Auto) Absolute Neuts (auto) Absolute Lymphs (auto) Nucleated RBC % Differential Comment Platelet Estimate RBC Morphology Anisocytosis Macrocytosis Sodium Potassium Chloride Carbon Dioxide Anion Gap BUN Creatinine Estim Creat Clear Calc Est GFR (MDRD) Af Amer Est GFR (MDRD) Non-Af BUN/Creatinine Ratio Glucose Lactic Acid Calcium Total Bilirubin AST ALT Alkaline Phosphatase Total Protein Albumin Globulin Albumin/Globulin Ratio Urine Color Yellow Urine Clarity Clear Urine pH 6.5 Ur Specific [place] 1.015 Urine Protein 100 H Urine Glucose (UA) Normal Urine Ketones 5 H Urine Occult Blood 150 H Urine Nitrite Negative Urine Bilirubin 3 H Urine Urobilinogen 12 H Ur Leukocyte Esterase 100 H Urine RBC 0 SEEN Urine WBC 10-25 SEEN Ur Squamous Epith Cells 0-5 SEEN Urine Bacteria 1+ Urine Mucus 0 SEEN Discharge Plan Triage Chief Complaint: Nausea/Vomiting ED Provider: Matt Hairston Dx/Rx/DC Orders Clinical Impression: Urinary tract infection, Infectious encephalopathy, Serum total bilirubin elevated, Anemia, Thrombocytopenia Prescriptions: No Action pilocarpine HCl 5 mg Tablet 5 mg PO TID RF: 0 acetaminophen [Tylenol] 325 mg Tablet 650 mg PO Q4H PRN (Reason: Pain) RF: 0 doxazosin 1 mg Tablet 1 mg PO QHS RF: 0 ondansetron HCl [Zofran] 8 mg Tablet 8 mg PO Q8H PRN (Reason: Nausea) RF: 0 sodium chloride 1 gram Tablet 1,000 mg PO DAILY RF: 0 oxcarbazepine 300 mg Tablet 300 mg PO BID RF: 0 famotidine 20 mg Tablet 20 mg PO BID RF: 0 buspirone 10 mg Tablet 10 mg PO BID RF: 0 lorazepam [Ativan] 1 mg Tablet 1 mg PO BID PRN (Reason: Anxiety) RF: 0 sertraline 50 mg Tablet 75 mg PO DAILY RF: 0 memantine 5 mg Tablet 10 mg PO BID RF: 0 promethazine 25 mg tablet 25 mg PO TID PRN (Reason: nausea and vomiting) Qty: 14 RF: 0 Primary Care Provider: Kimberly Ruelas Referrals: Kimberly Ruelas MD [Primary Care Provider] -
--- NOTE | 2021-09-19 18:53 | HP.PCM.HOS_ITS ---
HPI - General General Date of Admission: 09/19/21 Date of Service: 09/19/21 Chief Complaint: Nausea, emesis. HPI Narrative The patient is a 66 y/o F w/ PMHx: HTN, HLD, Hypothyroidism, Obesity, Depression and Anxiety, recent 08/11/21 diagnosis COVID-19 Acute viral syndrome, Hx metastatic colon CA to liver following w/ Dr. Lopez who presents to the [facility] ED on 09/19/21 with history of fatigue, malaise with nausea and emesis, increased confusion with recent urinary frequency per her report. Patient also reports a mild frontal headache that is dull and aching with some light sensitivity. Patient states that she did recover completely from her Covid illness recently 08/11/2021 and had been vaccinated. Work-up in the ED included T 98.9, heart rate 103, BP 96/77, respiratory rate 14, 94% on room air, CBC with WBC 5.2, hemoglobin 10.5 with most recent prior 09/02/2020 113.6 but prior to this baseline appeared primarily 12-13, platelets 32 (prior baseline appears primarily 7-90, 09/02/2021 platelet 93) with lymphopenia, CMP with sodium 135, potassium 3.1, glucose 188, lactic acid 1.5, total bilirubin 2.70 with most recent prior 09/02/2021 1.10, AST/ALT 25/17, alk phos 149, urinalysis with specific [place] 1.015, protein 100, occult blood 150, ketone 5, negative nitrite, leukocyte esterase 100, urine WBCs 10-25 with 1+ urine bacteria, urine culture pending per ED. In the ED patient ministered Rocephin. REPLACED BY [facility] Medical History Cancer Depression Hypertension Hypothyroidism Non-smoker Home Medications acetaminophen [Tylenol] 650 mg PO Q4H PRN 09/02/21 [History Last Taken Unknown] buspirone 10 mg PO BID 09/02/21 [History Last Taken Unknown] doxazosin 1 mg PO QHS 09/02/21 [History Last Taken Unknown] famotidine 20 mg PO BID 09/02/21 [History Last Taken Unknown] lorazepam [Ativan] 1 mg PO BID PRN 09/02/21 [History Last Taken Unknown] memantine 10 mg PO BID 09/02/21 [History Last Taken Unknown] ondansetron HCl [Zofran] 8 mg PO Q8H PRN 09/02/21 [History Last Taken Unknown] oxcarbazepine 300 mg PO BID 09/02/21 [History Last Taken Unknown] pilocarpine HCl 5 mg PO TID 09/02/21 [History Last Taken Unknown] promethazine 25 mg PO TID PRN #14 tab 09/02/21 [Rx Last Taken Unknown] sertraline 75 mg PO DAILY 09/02/21 [History Last Taken Unknown] sodium chloride 1,000 mg PO DAILY 09/02/21 [History Last Taken Unknown] Allergy/AdvReac Type Severity Reaction Status Date / Time No Known Allergies Allergy Verified 09/19/21 15:40 Family History (Updated 09/19/21 @ 20:[address] Catrachita Sutton MD) Mother Cancer Breast CA history. Father Cancer Hx Lymphoma. Surgical History (Updated 09/19/21 @ 20:[address] Catrachita Sutton MD) H/O resection of liver Hx of tubal ligation S/P cholecystectomy S/P hernia repair S/P partial colectomy S/P unilateral salpingo-oophorectomy Social History (Updated 09/19/21 @ 20:[address] Catrachita Sutton MD) household members: none Smoking Status: Never smoker alcohol intake: never substance use type: does not use ROS ROS Narrative Admission Review of Systems: CONSTITUTIONAL: No weight loss, fever, chills, + weakness or fatigue. HEENT: Eyes: No visual loss, blurred vision, double vision or yellow sclerae. Ears, Nose, Throat: No hearing loss, sneezing, congestion, runny nose or sore throat. SKIN: No rash or itching, lesions, wounds. CARDIOVASCULAR: No chest pain, chest pressure or chest discomfort, palpitations, edema, orthopnea, syncopal events. RESPIRATORY: No shortness of breath, cough or sputum, wheezing, hemoptysis. GASTROINTESTINAL: + anorexia, nausea, vomiting, No diarrhea, abdominal pain, melena, BRBPR. GENITOURINARY: + dysuria, frequency, urgency or retention. NEUROLOGICAL: + Delirium/confusion, headache, No dizziness, syncope, paralysis, ataxia, numbness or tingling in the extremities, focal weakness, change in bowel or bladder control, seizure. MUSCULOSKELETAL: + muscle, back pain, joint pain or stiffness. HEMATOLOGIC: + anemia, bleeding or bruising. LYMPHATICS: No enlarged nodes. No history of splenectomy. PSYCHIATRIC: + history of depression or anxiety. ENDOCRINOLOGIC: No reports of sweating, cold or heat intolerance. No polyuria or polydipsia. ALLERGIES: No history of asthma, hives, eczema or rhinitis. Vital Signs Vital Signs Vital Signs: 09/19/21 15:42 Temperature 98.9 F Temperature Source Temporal Pulse Rate 103 H Respiratory Rate 14 Blood Pressure 96/77 Blood Pressure Mean 83 Pulse Ox 94 Oxygen Delivery Method Nasal Cannula Weight Weight: 200 lb Body Mass Index (BMI) 31.3 Physical Exam Narrative Physical Examination: General: Awake, alert, oriented currently to self, place and some recent events, very fatigued and ill-appearing, notes persistent nausea currently. Skin: Normal color, normal turgor, no icterus, no cyanosis. HEENT: AT/NC, EOMI, PERRLA, dry MM, no carotid bruits or JVD noted. Lungs: C diminished, greater bases, moderate effort, no rales, ronchi or wheezing. Heart: Mildly tachycardic with regular rhythm; no gallop, rub audible. Abdomen: Soft, NTTP even in the suprapubic region, ND, moderately hyperactive BS, no obvious evidence of HSM. Extremities: No cyanosis, clubbing, or edema. Neurological: Patient awake, alert, oriented as noted, cognitive function improving since initial ED presentation, suspect nearing baseline intact; pupils equally reactive to light and accommodation, cranial nerves II-XII grossly normal, moving all 4 extremities, no focal deficits, strength moderately to severely globally [place] secondary to acute presentation. Psychiatric: Affect appears fatigued, ill-appearing, no acute evidence of depressive or anxiety feelings. Results Lab / Micro Data Result Diagrams: 09/19/21 17:30 09/19/21 15:21 Labs: Laboratory Results - last 24 hr 09/19/21 15:21: Sodium 135 L, Potassium 3.1 L, Chloride 104, Carbon Dioxide 24.0, Anion Gap 7, BUN 12, Creatinine 0.87, Estim Creat Clear Calc 61.02, Est GFR (MDRD) Af Amer 84, Est GFR (MDRD) Non-Af 69, BUN/Creatinine Ratio 13.8, Glucose 188 H, Calcium 8.1 L, Total Bilirubin 2.70 H, AST 25, ALT 17, Alkaline Phosphatase 149 H, Total Protein 6.5, Albumin 2.9 L, Globulin 3.6, Album in/Globulin Ratio 0.8 L 09/19/21 17:30: WBC 5.2, RBC 3.20 L, Hgb 10.5 L, Hct 30.0 L, MCV 93.8, MCH 32.8 H, MCHC 35.0, RDW Std Deviation 51.0 H, RDW Coeff of Halima 15.0 H, Plt Count 32 L* , MPV 12.3 H, Immature Gran % (Auto) 0.400, Neut % (Auto) 94.0 H, Lymph % (Auto) 1.2 L, [place] % (Auto) 4.4, Eos % (Auto) 0.0, Baso % (Auto) 0.0, Absolute Neuts (auto) 4.9, Absolute Lymphs (auto) 0.06 L, Nucleated RBC % 0, Differential Comment SEE COMMENT, Platelet Estimate MKD DEC, RBC Morphology N CHROM, Anisocytosis RARE, Macrocytosis RARE 09/19/21 17:30: Lactic Acid 1.5 09/19/21 17:40: Urine Color Yellow, Urine Clarity Clear, Urine pH 6.5, Ur Specific [place] 1.015, Urine Protein 100 H, Urine Glucose (UA) Normal, Urine Ketones 5 H, Urine Occult Blood 150 H, Urine Nitrite Negative, Urine Bilirubin 3 H, Urine Urobilinogen 12 H, Ur Leukocyte Esterase 100 H, Urine RBC 0 SEEN, Urine WBC 10-25 SEEN, Ur Squamous Epith Cells 0-5 SEEN, Urine Bacteria 1+, Urine Mucus 0 SEEN Assessment & Plan Assessment/Plan (1) Urinary tract infection: QUALIFIERS: Urinary tract infection type: acute cystitis Hemat uria presence: without hematuria Qualified Code(s): N30.00 - Acute cystitis without hematuria (2) Infectious encephalopathy: PLAN: The patient is a 66 y/o F w/ PMHx: HTN, HLD, Hypothyroidism, Obesity, Depression and Anxiety, recent 08/11/21 diagnosis COVID-19 Acute viral syndrome, Hx metastatic colon CA to liver following w/ Dr. Lopez who presents to the [facility] ED on 09/19/21 with history of fatigue, malaise with nausea and emesis, increased confusion with recent urinary frequency per her report. 1. Acute Encephalopathy secondary to Acute Complicated Urinary Tract Infection: Will admit to [facility] upon ED evaluation remarkable, pending UCx, continue IVFs, monitor I/Os, continue IV Rocephin w/ transition as able pending sensitivities and speciation. Bld cx x 2 obtained in the ED. PT/OT/CM consultations for discharge planning. 2. Acute on chronic thrombocytopenia: Admission platelets 32, prior baseline appears primarily 7-90, 09/02/2021 platelet 93, unclear etiology, possibly associated with acute infection and underlying treatments for her colon CA w/ liver mets. 3. Acute on chronic anemia: Admission hemoglobin 10.5 with most recent prior 09/02/2020 113.6 but prior to this baseline appeared primarily 12-13, unclear etiology, possibly associated with acute infection and underlying treatments for her colon CA w/ liver mets. Will repeat CBC in AM, if concerns may consider guiac. 4. Hypokalemia: Admission K+ 3.1, mag pending, supplementation given, repeat level in AM. 5. History of metastatic colon cancer status post resection of liver lesion x2: Patient with most recent evaluation 03/02/[address] Bazzi with no bleeding internal hemorrhoids with no specimens collected and upper endoscopy with mucosal changes in the stomach but no ulcers otherwise unremarkable, following with Dr. Lopez, hold Xeloda given labs. 6. Hypertension: Continue home regimen including low-dose lisinopril with hold parameters, PRN hydralazine. 7. Anxiety and depression: We will continue patient home low-dose fluoxetine regimen. 8. Hypothyroidism: Continue home synthroid regimen. 9. Obesity: Weight loss and lifestyle changes encouraged. 10. GERD: We will continue patient home PPI and sucralfate. 11. DVT prophylaxis: SCDs, defer any chemoprophylaxis given acute on chronic thrombocytopenia as noted. 12. CODE status: Patient HCPOA and living will are not set-up. Given patient history encouraged discussions/set-up. Discussed CODE status at length including difference between FULL code, DNR-CCA and DNR-CC status. Following discussions about the differences in these status, requested Full Code status. Advanced Care Planning Face to Face Time: 16 minutes. Charges/Coding Visit Charges Inpatient E&M: 46797 Init Hosp L3 Procedures Hospitalists Procedures: 33045 Advncd Care Plan 30 Min
[2021-09-19] MEDS: Ceftriaxone 1 GM/50 ML BAG IV (19:15)
[2021-09-19 19:50] VITALS: BP 138/62; PULSE 87; RESP 19; TEMP 36.1; O2SAT 96
[2021-09-19 20:18] VITALS: BMI 31.9
[2021-09-19 20:38] LABS: Magnesium 1.5 mg/dL (1.6-2.6); Phosphorus 1.8 mg/dL (2.5-4.9)
[2021-09-19 20:41] VITALS: BP 155/48; PULSE 89; RESP 22; TEMP 37.7; O2SAT 98
[2021-09-19] MEDS: Ondansetron 4 MG/2 ML Vial IV (20:53)
[2021-09-19] MEDS: 0.9% Normal Saline 1,000 ML 100 ML IV (20:53)
[2021-09-19 21:30] VITALS: TEMP 37.4
[2021-09-19] MEDS: Potassium Chloride 10mEq/100mL 10 MEQ/100 ML IV.SOLN. 100 MEQ IV BOLUS ×3 (21:37→23:45)
[2021-09-19] MEDS: proCHLORPERazine 10 MG/2 ML Vial 5 MG IV (22:12)
[2021-09-19] MEDS: 0.9% Saline Lock 10 ML Syringe IV (22:12)
[2021-09-19 23:10] LABS: Amphetamine Urine VISTA NEGATIVE (<1000 ng/mL); Barbiturate Urine VISTA NEGATIVE (< 200 ng/mL); Benzodiazepine Urine VISTA NEGATIVE (< 200 ng/mL); Cocaine Urine VISTA NEGATIVE (< 300 ng/mL); Ecstacy Urine VISTA NEGATIVE (< 500 ng/mL); Methadone Urine VISTA NEGATIVE (< 300 ng/mL); PCP Urine VISTA NEGATIVE (< 25 ng/mL); THC Urine VISTA NEGATIVE (< 50 ng/mL); Vista UDS pH Range 6
[2021-09-19] MEDS: LORazepam 1 MG Tablet PO (23:59)
[2021-09-19] MEDS: MELATONIN 3 MG TABLET PO (23:59)
[2021-09-20] VITALS (15 sets, daily range): BP systolic 98–142; BP diastolic 40–98; PULSE 62–94; RESP 16–18; TEMP 36.6–39.1; O2SAT 96–99
[2021-09-20] MEDS: Potassium Chloride 10mEq/100mL 10 MEQ/100 ML IV.SOLN. 100 MEQ IV BOLUS (00:59)
[2021-09-20 02:25] LABS: Absolute Lymphocyte Count 0.11 X10^3/uL (0.83-4.51); Absolute Neutrophil Count 4.2 X10^3/uL (2.0-7.7); Hematocrit 27.8 % (37-47); Hemoglobin 9.6 g/dL (12.0-15.0); Lymphocyte # 0.11 X10^3/ul (0.83-4.51); Lymphocyte % 2.4 % (19-41); Mean Corp Hgb Conc 34.5 g/dL (32-36); Mean Corpuscular Hgb 32.4 pg (27.0-32.0); Mean Corpuscular Volume 93.9 fL (81-99); Mean Platelet Vol. 12.7 fl (6.2-12.0); Monocyte# 0.25 X10^3/uL; Monocyte% 5.4 % (0-10); NRBC Flagged by Analyzer 0 % (0-5); Neutrophil # 4.23 X10^3/uL (2.7-7.7); POSITIVE COUNT YES; POSITIVE DIFFERENTIAL YES; Platelet Count 29 K/mm3 (150-450); RBC Distribution Width CV 15.1 % (11.6-14.6); RBC Distribution Width SD 51.3 fl (35.1-43.9); Red Blood Count 2.96 M/mm3 (4.2-5.4); White Blood Count 4.6 K/mm3 (4.4-11.0)
[2021-09-20 02:46] LABS: ALB/GLOB Ratio 0.8 RATIO (0.9-2.4); AST(SGOT) 22 U/L (15-37); Alanine Aminotransfer ALT/SGPT 15 U/L (13-56); Albumin, Serum 2.4 g/dL (3.2-5.0); Alkaline Phosphatase 117 U/L (45-117); Anion Gap 5 (5-15); BUN 12 mg/dL (7-18); Calcium,Total 7.6 mg/dL (8.5-10.1); Chloride 108 mmol/L (98-107); Creatinine, Serum 0.75 mg/dL (0.55-1.02); EST Glomerular Filtration Rate 82 mL/min (>60); Est Glom Filt Rate - Afr Amer 99 mL/min (>60); Estimated Creatinine Clearance 53.09 ml/min; Globulin 3.1 g/dL (2.2-4.2); Glucose 153 mg/dL (74-106); Potassium 3.7 mmol/L (3.5-5.1); Protein, Total 5.5 g/dL (6.4-8.2); Sodium Level 137 mmol/L (136-145)
[2021-09-20 02:54] LABS: Differential Indicated SCAN CRITERIA MET
[2021-09-20 02:55] LABS: Anisocytosis 1+
[2021-09-20] MEDS: 0.9% Normal Saline 1,000 ML 100 ML IV ×2 (06:37→17:58)
[2021-09-20] MEDS: Levothyroxine 137 MCG Tablet PO (06:37)
[2021-09-20] MEDS: Dicyclomine 10 MG Capsule 20 MG PO ×4 (06:37→23:57)
[2021-09-20] MEDS: Acetaminophen 325 MG Tablet 650 MG PO ×3 (08:28→22:01)
[2021-09-20] MEDS: FLUoxetine 20 MG Capsule PO (08:28)
[2021-09-20] MEDS: Pantoprazole Sodium 40 MG Tablet PO (08:29)
[2021-09-20] MEDS: Lisinopril 10 MG Tablet 30 MG PO (08:29)
--- NOTE | 2021-09-20 10:17 | PN.HOSP_ITS ---
Subjective Subjective Patient looks weak, low energy. No fever, constipation or alteration of bowel movement. Denies bloody bowel movement. States her colon cancer with liver mets is in remission for 2 to 3 years and is on Xeloda. Objective Data Objective Data Vital Signs: Vital Signs Temp Pulse Resp BP Pulse Ox 100.3 F H 94 18 129/89 H 97 09/20/21 09:27 09/20/21 08:17 09/20/21 08:17 09/20/21 08:17 09/20/21 08:17 Oxygen Delivery Method Room Air Weight: 205 lb 14.4 oz Body Mass Index (BMI) 31.9 Intake & Output: Intake and Output for Last 24 Hours 09/18/21 09/19/21 09/20/21 23:59 23:59 23:59 Intake Total 250 / 250 1373.33 / 1373.33 Balance 250 / 250 1373.33 / 1373.33 Lab / Micro Data Result Diagrams: 09/20/21 01:55 09/20/21 01:55 Labs: Laboratory Results - last 24 hr 09/19/21 15:21: Sodium 135 L, Potassium 3.1 L, Chloride 104, Carbon Dioxide 24.0, Anion Gap 7, BUN 12, Creatinine 0.87, Estim Creat Clear Calc 61.02, Est GFR (MDRD) Af Amer 84, Est GFR (MDRD) Non-Af 69, BUN/Creatinine Ratio 13.8, Glucose 188 H, Calcium 8.1 L, Total Bilirubin 2.70 H, AST 25, ALT 17, Alkaline Phosphatase 149 H, Total Protein 6.5, Albumin 2.9 L, Globulin 3.6, Albumin/Globulin Ratio 0.8 L 09/19/21 15:21: Phosphorus 1.8 L, Magnesium 1.5 L 09/19/21 17:30: WBC 5.2, RBC 3.20 L, Hgb 10.5 L, Hct 30.0 L, MCV 93.8, MCH 32.8 H, MCHC 35.0, RDW Std Deviation 51.0 H, RDW Coeff of Halima 15.0 H, Plt Count 32 L* , MPV 12.3 H, Immature Gran % (Auto) 0.400, Neut % (Auto) 94.0 H, Lymph % (Auto) 1.2 L, [place] % (Auto) 4.4, Eos % (Auto) 0.0, Baso % (Auto) 0.0, Absolute Neuts (auto) 4.9, Absolute Lymphs (auto) 0.06 L, Nucleated RBC % 0, Differential Comment SEE COMMENT, Diff Path Review May deandre, Platelet Estimate MKD DEC, RBC Morphology N CHROM, Anisocytosis RARE, Macrocytosis RARE 09/19/21 17:30: Lactic Acid 1.5 09/19/21 17:40: Urine Color Yellow, Urine Clarity Clear, Urine pH 6.5, Ur Sp ecific Carnation 1.015, Urine Protein 100 H, Urine Glucose (UA) Normal, Urine Ketones 5 H, Urine Occult Blood 150 H, Urine Nitrite Negative, Urine Bilirubin 3 H, Urine Urobilinogen 12 H, Ur Leukocyte Esterase 100 H, Urine RBC 0 SEEN, Urine WBC 10-25 SEEN, Ur Squamous Epith Cells 0-5 SEEN, Urine Bacteria 1+, Urine Mucus 0 SEEN 09/19/21 17:40: Urine Opiates Screen NEGATIVE, Urine Methadone Screen NEGATIVE, Ur Barbiturates Screen NEGATIVE, Ur Phencyclidine Scrn NEGATIVE, Ur Amphetamines Screen NEGATIVE, U Methamphetamin-MDMA NEGATIVE, U Benzodiazepines Scrn NEGATIVE, Urine Cocaine Screen NEGATIVE, U Cannabinoids Screen NEGATIVE, Ur Drug Screen Comment 09/20/21 01:55: WBC 4.6, RBC 2.96 L, Hgb 9.6 L, Hct 27.8 L, MCV 93.9, MCH 32.4 H , MCHC 34.5, RDW Std Deviation 51.3 H, RDW Coeff of Halima 15.1 H, Plt Count 29 L*, MPV 12.7 H, Immature Gran % (Auto) 0.200, Neut % (Auto) 92.0 H, Lymph % (Auto) 2.4 L, [place] % (Auto) 5.4, Eos % (Auto) 0.0, Baso % (Auto) 0.0, Absolute Neuts (auto) 4.2, Absolute Lymphs (auto) 0.11 L, Nucleated RBC % 0, Diff Path Review May foll, Anisocytosis 1+ 09/20/21 01:55: Sodium 137, Potassium 3.7, Chloride 108 H, Carbon Dioxide 24.0, Anion Gap 5, BUN 12, Creatinine 0.75, Estim Creat Clear Calc 53.09, Est GFR (MDRD) Af Amer 99, Est GFR (MDRD) Non-Af 82, BUN/Creatinine Ratio 16.0, Glucose 153 H, Calcium 7.6 L, Total Bilirubin 2.00 H, AST 22, ALT 15, Alkaline Phosphatase 117, Total Protein 5.5 L, Albumin 2.4 L, Globulin 3.1, Albumin/Globulin Ratio 0.8 L Physical Exam Narrative General: Alert, Oriented x3, Cooperative HEENT: Atraumatic, PERRLA, EOMI, Normocephalic Oral: No Gingival or Mucosal Lesions/ Ulcerations Neck: Supple, No JVD, Negative Carotid Bruits Lungs: Air entry diminished in bilateral lung bases. No crepitation/rhonchi Cardiovascular: Regular rate, Regular Rhythm, Normal S1, Normal S2, No murmurs Abdomen: Bowel Sounds Present, Soft, Non Tender, Non-Distended : No renal angle tenderness. No suprapubic tenderness. Extremities: No edema, Capillary Refill Less than 3 Seconds Skin: No rashes, No breakdown Musculoskeletal: No Tenderness to Palpation of Joints or Extremities. Mild weakness of muscles of extremity. Neurological: Cranial nerves II-XII grossly intact, DTR 2+/4 and Symmetrical, Neuro grossly intact Psych/Mental Status: Flat affect. Assessment & Plan Assessment/Plan (1) Urinary tract infection: QUALIFIERS: Hematuria presence: without hematuria Urinary tract infection type: acute cystitis Qualified Code(s): N30.00 - Acute cystitis without hematuria (2) Infectious encephalopathy: PLAN: The patient is a 66 y/o F recent 08/11/21 diagnosis COVID-19 Acute viral syndrome, Hx metastatic colon CA to liver following w/ Dr. Lopez who presents to the [facility] ED on 09/19/21 with history of fatigue, malaise with nausea and emesis, increased confusion with recent urinary frequency per her report. 1. Acute Encephalopathy secondary to Acute Complicated Urinary Tract Infection: Patient is being admitted in [facility]. UA WBC 10-25 cells, RBC 0 cell, LE 100. Nitrite negative. Bacteria 1+. Blood cultures x2 and urine culture are pending. Patient not eager to move or work with PT and OT today. 2. Acute on chronic thrombocytopenia: Probably related to cancer colon with liver mets on Xeloda at home. Thrombocytopenia 29,000. Patient blood grams baseline 70s to 90,000. 3. Acute on chronic anemia: Admission hemoglobin 10.5 with most recent prior 09/02/2020 13.6 but prior to this baseline appeared primarily 12-13, related to neoplasm complicated with antineoplastic agent. H&H is stable over last 2 days. 4. Hypokalemia: Admission K+ 3.1, repeat potassium normal. Hypomagnesemia and hypophosphatemia. Magnesium and phosphate replaced. 5. History of metastatic colon cancer status post resection of liver lesion x2: Patient with most recent evaluation 03/02/[address] Bazzi with no bleeding internal hemorrhoids with no specimens collected and upper endoscopy with mucosal changes in the stomach but no ulcers otherwise unremarkable, following with Dr. Lopez, hold Xeloda given labs. 6. Hypertension: Continue home regimen including low-dose lisinopril with hold parameters, PRN hydralazine. 7. Anxiety and depression: We will continue patient home low-dose fluoxetine regimen. 8. Hypothyroidism: Continue home synthroid regimen. 9. Obesity: Weight loss and lifestyle changes encouraged. 10. GERD: We will continue patient home PPI and sucralfate. 11. DVT prophylaxis: SCDs, defer any chemoprophylaxis given acute on chronic thrombocytopenia as noted. 12. CODE status: Full code Charges/Coding Visit Charges Inpatient E&M: 55904 Subs Hosp L2
[2021-09-20] MEDS: Ceftriaxone 1 GM/50 ML BAG IV (10:41)
--- NOTE | 2021-09-20 10:50 | CASEMGMT ---
SRAVAN SAMPSON Assessment: Face to Face with pt for initial transition planning/care coordination assessment. RN ADRIÁN introduced self and role at [facility], pt voices understanding and consents to assessment. Pt is A/O x4 and answers all questions appropriately at this time. Pt sitting up in chair in no distress. Care providers, pharmacy, and demographics verified/updated. Admitting Dx: acute encephalopathy, acute UTI PCP:Suraj Specialists:madison Lopez Preferred Pharmacy: [facility] Insurance: [facility], [employer] Prescription Benefit: yes LW/HPOA: Pt denies having a LW/DPOA and denies need for info regarding AD. LNOK: Margo Adrian dtr; Mac Salazar dtr Living Arrangements: Pt lives with dtr Margo in a single story apt with 3 steps to enter with a rail. Pt reports she is I in ADL's and denies concerns at home. Transportation: Pt drives self and denies concerns with transportation. DME/HHC/SNF: Pt has a cane and walker at home but does not use. Pt denies previous hx of HHC or SNF stays. Pt reports she is exhausted and has had a rough 3 days. She denies the need for therapy at home. She states she worked with therapy this morning and she walked and did well. Therapy note not in at this time. Pt states no concerns with going home at time of dc. Pt states no further concerns/needs. CM to follow. Advised pt to ask CM if any further question/concerns/needs arise, voices understanding. Pt Goal: Home Plan: Home with family support.
[2021-09-20 13:21] LABS: Pathologist Review Reviewed
[2021-09-20 13:22] LABS: Pathologist Review Reviewed
--- NOTE | 2021-09-20 19:28 | NURSING ---
pt states i just spoke with my daughter again and she now is telling me that my grandson is NOT positive for COVID, he has strep throat. informed pt will follow up on and inform Md pending test results.
[2021-09-20] MEDS: Senna/Docusate Sodium 1 Tablet 2 TABLET PO (21:51)
[2021-09-20] MEDS: MELATONIN 3 MG TABLET PO (22:01)
[2021-09-20 22:31] LABS: Probe Check PASS; Specimen Processing Control PASS
[2021-09-21 02:52] VITALS: BP 101/49; PULSE 61; RESP 16; TEMP 37.1; O2SAT 95
[2021-09-21] MEDS: 0.9% Normal Saline 1,000 ML 100 ML IV (03:33)
[2021-09-21] MEDS: Dicyclomine 10 MG Capsule 20 MG PO (05:18)
[2021-09-21] MEDS: Levothyroxine 137 MCG Tablet PO (05:18)
[2021-09-21 07:22] LABS: Anion Gap 7 (5-15); BUN 14 mg/dL (7-18); BUN/Creat Ratio 17.9 RATIO (10-20); Chloride 107 mmol/L (98-107); Creatinine, Serum 0.78 mg/dL (0.55-1.02); EST Glomerular Filtration Rate 78 mL/min (>60); Est Glom Filt Rate - Afr Amer 95 mL/min (>60); Estimated Creatinine Clearance 53.09 ml/min; Glucose 95 mg/dL (74-106); Magnesium 2.1 mg/dL (1.6-2.6); Phosphorus 2.1 mg/dL (2.5-4.9); Potassium 3.8 mmol/L (3.5-5.1); Sodium Level 136 mmol/L (136-145)
[2021-09-21 08:05] VITALS: BP 132/60; PULSE 57; RESP 18; TEMP 37; O2SAT 95
[2021-09-21] MEDS: BENZOCAINE/MENTHOL 1 LOZENGE MUCOUS MEM (08:08)
[2021-09-21] MEDS: FLUoxetine 20 MG Capsule PO (08:08)
[2021-09-21] MEDS: Lisinopril 10 MG Tablet 30 MG PO (08:08)
[2021-09-21] MEDS: Pantoprazole Sodium 40 MG Tablet PO (08:09)
[2021-09-21] MEDS: Ceftriaxone 1 GM/50 ML BAG IV (09:46)
--- NOTE | 2021-09-21 11:06 | PCM.DC ---
Discharge Instructions Diet Discharge Diet: No restrictions Activity Discharge Activity: Return to Normal Activity Weight Bearing Status: Weight bearing as tolerated Dressing / Incision Call your doctor if you observe: Fever of 101 or Higher, Coldness, Increased Pain, Numbness or Tingling, Change in Color, Inability to urinate, Inability to have a bowel movement, Using more than 1 pad per hour, Shortness of breath, Dizziness, Fainting spells, Swelling in the ankles, Chest pain, Prolonged hiccupping, Increased palpitations (irregular heartbeat) and Calf discomfort Follow Up Care Test Results: Test results from this visit will be discussed in further detail at your follow-up appointment, if applicable. Discharge Plan Admission Admit Date/Time: 09/19/21 20:09 Primary Reason for Your Visit: Generalized weakness Attending Provider: Ton Berger Primary Care Provider: Kimberly Ruelas Discharge Orders/Prescriptions Prescriptions: New ciprofloxacin HCl [Cipro] 500 mg tablet 500 mg PO BID Qty: 6 RF: 0 potassium, sodium phosphates 280-160-250 mg Powder In Packet 1 packet PO TID Qty: 10 RF: 0 Continued acetaminophen [Tylenol] 325 mg Tablet 650 mg PO Q4H PRN (Reason: Pain) RF: 0 ondansetron HCl 8 mg Tablet 8 mg PO Q8H PRN (Reason: Nausea) RF: 0 lorazepam [Ativan] 1 mg Tablet 1 mg PO BID PRN (Reason: Anxiety) RF: 0 promethazine 25 mg tablet 25 mg PO TID PRN (Reason: nausea and vomiting) Qty: 14 RF: 0 levothyroxine 137 mcg tablet 137 mcg PO DAILY RF: 0 omeprazole 40 mg capsule,delayed release(DR/EC) 40 mg PO DAILY RF: 0 etodolac 400 mg tablet 400 mg PO BID PRN (Reason: Back Pain) RF: 0 fluoxetine 20 mg capsule 20 mg PO DAILY RF: 0 dicyclomine 20 mg tablet 20 mg PO Q6H RF: 0 lisinopril 20 mg tablet 30 mg PO DAILY Qty: 0 RF: 0 Discontinued capecitabine [Xeloda] 500 mg Tablet See Rx Instructions .ROUTE .COMPLEX RF: 0 Referrals / Follow Up: Kimberly Ruelas MD [Primary Care Provider] - In 1 Week Dima Lopez MD [STAFF PHYSICIAN] - Within 1 Week (on 09/23/21) Disposition Disposition (needs filled in before D/C Order can be placed): Home, Self Care
--- NOTE | 2021-09-21 11:20 | DS.PCM_ITS ---
Providers Date of Admission: 09/19/21 Primary Care Physician: Dr. Kimberly Ruelas MD Reason For Visit: ACUTE ENCEPHALOPATHY, ACUTE UTI Diagnosis Discharge Diagnosis (1) Urinary tract infection: Status: Acute Code(s): N39.0 - Urinary tract infection, site not specified Qualifiers: Hematuria presence: without hematuria Urinary tract infection type: acute cystitis Qualified Code(s): N30.00 - Acute cystitis without hematuria (2) Infectious encephalopathy: Status: Acute Code(s): G93.49 - Other encephalopathy; B99.9 - Unspecified infectious disease Medications at Discharge Home Medications acetaminophen [Tylenol] 650 mg PO Q4H PRN 09/02/21 lorazepam [Ativan] 1 mg PO BID PRN 09/02/21 ondansetron HCl 8 mg PO Q8H PRN 09/02/21 promethazine 25 mg PO TID PRN #14 tab 09/02/21 dicyclomine 20 mg PO Q6H 09/19/21 etodolac 400 mg PO BID PRN 09/19/21 fluoxetine 20 mg PO DAILY 09/19/21 levothyroxine 137 mcg PO DAILY 09/19/21 omeprazole 40 mg PO DAILY 09/19/21 ciprofloxacin HCl [Cipro] 500 mg PO BID #6 tab 09/21/21 lisinopril 30 mg PO DAILY #0 tab 09/21/21 potassium, sodium phosphates 1 packet PO TID #10 ea 09/21/21 Hospital Course Summary of Care Provided Hospital Course: The patient is a 66 y/o F recent 08/11/21 diagnosis COVID-19 Acute viral syndrome, Hx metastatic colon CA to liver following w/ Dr. Lopez who presents [facility] ED on 09/19/21 with history of fatigue, malaise with nausea and emesis, increased confusion with recent urinary frequency per her report. 1. Acute Encephalopathy secondary to Acute Complicated Urinary Tract Infection: [facility]. UA WBC 10-25 cells, RBC 0 cell, LE 100. Nitrite negative. Bacteria 1+. Blood cultures x2 and urine culture are pending. Patient not eager to move or work with PT and OT today. 2. Acute on chronic thrombocytopenia: Probably related to cancer colon with liver mets on Xeloda at home. Thrombocytopenia 29,000. Patient blood grams baseline 70s to 90,000. Platelet count is stable. Xeloda discontinued. 3. Acute on chronic anemia: Admission hemoglobin 10.5 with most recent prior 09/02/2020 13.6 but prior to this baseline appeared primarily 12-13, related to neoplasm complicated with antineoplastic agent. H&H is stable over last 2 days. H&H 9.6/27.8 4. Hypokalemia: Admission K+ 3.1, repeat potassium normal. Hypomagnesemia and hypophosphatemia. Magnesium and phosphate replaced. Prescription given for Neutra-Phos. 5. History of metastatic colon cancer status post resection of liver lesion x2: Patient with most recent evaluation 03/02/[address] Bazzi with no bleeding internal hemorrhoids with no specimens collected and upper endoscopy with mucosal changes in the stomach but no ulcers otherwise unremarkable, following with Dr. Lopez, hold Xeloda given labs. 6. Hypertension: Continue home regimen including low-dose lisinopril with hold parameters, PRN hydralazine. 7. Anxiety and depression: We will continue patient home low-dose fluoxetine regimen. 8. Hypothyroidism: Continue home synthroid regimen. 9. Obesity: Weight loss and lifestyle changes encouraged. 10. GERD: We will continue patient home PPI and sucralfate. 11. DVT prophylaxis: SCDs, defer any chemoprophylaxis given acute on chronic thrombocytopenia as noted. 12. CODE status: Full code Discharge medication reconciliation done. Discharge follow-up instructions completed. Discharge process discussed with the patient and all questions were answered to patient's satisfaction. Discussed with Dr. Gilbert. Appointment made on 09/23/2021 with CBC. Advised to follow with PCP in 1 week. Total time spent, exact 35 minutes on discharge meds reconciliation, examination, coordination of care with nurses and ancillary staff, review of imaging and blood test and discussion with the patient on follow-up instructions Physical Exam Narrative Patient does not have any active bleeding. Platelet count is stable for last 2 days. Discussed with big data hadoop developer Dr. Lopez General: Alert, Oriented x3, Cooperative HEENT: Atraumatic, PERRLA, EOMI, Normocephalic Oral: No Gingival or Mucosal Lesions/ Ulcerations Neck: Supple, No JVD, Negative Carotid Bruits Lungs: Air entry diminished in bilateral lung bases. No crepitation/rhonchi Cardiovascular: Regular rate, Regular Rhythm, Normal S1, Normal S2, No murmurs Abdomen: Bowel Sounds Present, Soft, Non Tender, Non-Distended : No renal angle tenderness. No suprapubic tenderness. Extremities: No edema, Capillary Refill Less than 3 Seconds Skin: No rashes, No breakdown Musculoskeletal: No Tenderness to Palpation of Joints or Extremities. Mild weakness of muscles of extremity. Neurological: Cranial nerves II-XII grossly intact, DTR 2+/4 and Symmetrical, Neuro grossly intact Psych/Mental Status: Flat affect. Weight / BMI Weight Weight: 213 lb 10.047 oz Body Mass Index (BMI) 31.9 ABG / Lab / Microbiology Data Result Diagrams: 09/20/21 01:55 09/21/21 06:22 Laboratory: Laboratory Results - last 24 hr 09/19/21 17:30: Diff Path Review Reviewed 09/20/21 01:55: Diff Path Review Reviewed 09/20/21 20:20: COVID-19 (JOEY) Negative 09/21/21 06:22: Sodium 136, Potassium 3.8, Chloride 107, Carbon Dioxide 22.0, Anion Gap 7, BUN 14, Creatinine 0.78, Estim Creat Clear Calc 53.09, Est GFR (MDRD) Af Amer 95, Est GFR (MDRD) Non-Af 78, BUN/Creatinine Ratio 17.9, Glucose 95, Calcium 8.0 L, Phosphorus 2.1 L, Magnesium 2.1 Microbiology: Microbiology 09/19/21 17:40 Urine, Catheterized Urine Culture - Final Escherichia coli D/C Instructions Discharge Diet: No restrictions Weight Bearing Status: Weight bearing as tolerated Call your doctor if you observe: Fever of 101 or Higher, Coldness, Increased Pain, Numbness or Tingling, Change in Color, Inability to urinate, Inability to have a bowel movement, Using more than 1 pad per hour, Shortness of breath, Dizziness, Fainting spells, Swelling in the ankles, Chest pain, Prolonged hiccupping, Increased palpitations (irregular heartbeat) and Calf discomfort Meaningful Use Info Meaningful Use Diagnoses (Choose all that apply): None applicable Discharge Plan Admission Admit Date/Time: 09/19/21 20:09 Primary Reason for Your Visit: Generalized weakness Attending Provider: Ton Berger Primary Care Provider: Kimberly Ruelas Discharge Orders/Prescriptions Prescriptions: New ciprofloxacin HCl [Cipro] 500 mg tablet 500 mg PO BID Qty: 6 RF: 0 potassium, sodium phosphates 280-160-250 mg Powder In Packet 1 packet PO TID Qty: 10 RF: 0 Continued acetaminophen [Tylenol] 325 mg Tablet 650 mg PO Q4H PRN (Reason: Pain) RF: 0 ondansetron HCl 8 mg Tablet 8 mg PO Q8H PRN (Reason: Nausea) RF: 0 lorazepam [Ativan] 1 mg Tablet 1 mg PO BID PRN (Reason: Anxiety) RF: 0 promethazine 25 mg tablet 25 mg PO TID PRN (Reason: nausea and vomiting) Qty: 14 RF: 0 levothyroxine 137 mcg tablet 137 mcg PO DAILY RF: 0 omeprazole 40 mg capsule,delayed release(DR/EC) 40 mg PO DAILY RF: 0 etodolac 400 mg tablet 400 mg PO BID PRN (Reason: Back Pain) RF: 0 fluoxetine 20 mg capsule 20 mg PO DAILY RF: 0 dicyclomine 20 mg tablet 20 mg PO Q6H RF: 0 lisinopril 20 mg tablet 30 mg PO DAILY Qty: 0 RF: 0 Discontinued capecitabine [Xeloda] 500 mg Tablet See Rx Instructions .ROUTE .COMPLEX RF: 0 Referrals / Follow Up: Kimberly Ruelas MD [Primary Care Provider] - In 1 Week (Appointment on Sunday with Abner Contreras NP @ 9:30AM) Dima Lopez MD [STAFF PHYSICIAN] - Within 1 Week (on 09/23/21) Disposition Disposition (needs filled in before D/C Order can be placed): Home, Self Care Charges/Coding Visit Charges Inpatient E&M: 95028 Disch Hosp
[2021-09-21] MEDS: Na Biphos/Potassium Phosphate PACKET 1 PACKET PO (13:27)
[2021-09-21 13:30] VITALS: BP 117/44; PULSE 66; RESP 20; TEMP 37.1; O2SAT 96
--- NOTE | 2021-09-22 12:58 | CASEMGMT ---
SRAVAN SAMPSON Discharge Follow Up Phone Call: KALINA: Mohan Strata:4 Call Date: 09/22/2021 Discharge Date: 09/21/21 Time of Call:1256 Duration: 3 min Admitting Dx: acute encephalopathy, acute UTI SRAVAN SAMPSON completed follow up phone call after recent hospitalization. Pt states she is doing alot better. She states she has gotten one rx but her cipro is on order. She is aware that this is for her UTI and she needs the medication. If it cannot be obtained today, suggested she ask her pharmacy to transfer to another who has it in stock. Pt verbalized understanding. Pt has an appt tomorrow with Dr. Lopez and she has not yet made her appt with Dr. Ruelas yet for follow up but will do so. Pt denies further questions or concerns at this time.
== END 2021-09-21 14:07 | disposition home or self-care (01) | DRG 690 ==
LOC: ED 19:20 → MS3 09-20 01:57
PROVIDERS: Admitting Provider Family Medicine; Emergency Provider Emergency Medicine; PCP Internal Medicine; Visit Provider Internal Medicine
DX: N30.00 Acute cystitis without hematuria (principal); G93.49 Other encephalopathy; C18.9 Malignant neoplasm of colon, unspecified; C78.7 Secondary malignant neoplasm of liver and intrahepatic bile duct; I10 Essential (primary) hypertension; E78.5 Hyperlipidemia, unspecified; E03.9 Hypothyroidism, unspecified; F41.9 Anxiety disorder, unspecified; D69.6 Thrombocytopenia, unspecified; E87.6 Hypokalemia; E66.9 Obesity, unspecified; K21.9 Gastro-esophageal reflux disease without esophagitis; Z86.16 Personal history of COVID-19; E83.42 Hypomagnesemia; E83.39 Other disorders of phosphorus metabolism; Z68.31 Body mass index [BMI] 31.0-31.9, adult; F32.A Depression, unspecified; Z66 Do not resuscitate; D63.0 Anemia in neoplastic disease
CPT/HCPCS: 36415; 80048; 80053; 80307; 81001; 83605; 83735; 84100; 85025; 87040; 87077; 87086; 87088; 87186; 87635; 97161; 97166; 97802; 99285; J7030; J7040; J7050; P9612; U0005; A4216; J2405; U0003

== ENCOUNTER 2022-03-10 17:03 | Emergency (ER) | payer MEDICARE, OTHER, SELFPAY ==
[2022-03-10 17:04] VITALS: BP 148/55; PULSE 62; RESP 16; TEMP 36.5; O2SAT 97; BMI 29.6
[2022-03-10 17:15] VITALS: BP 165/75; PULSE 56
--- NOTE | 2022-03-10 17:33 | EKG12_ITS ---
Test Reason : CP Blood Pressure : / mmHG Vent. Rate : 056 BPM Atrial Rate : 056 BPM P-R Int : 134 ms QRS Dur : 092 ms QT Int : 496 ms P-R-T Axes : 011 022 035 degrees QTc Int : 478 ms Sinus bradycardia Otherwise normal ECG Confirmed by VOLODYMYR RADER, INA ([id number]), newspaper editor DOM BRAMBILA ([id number]) on 03/14/2022 9:13:34 AM Referred By: Confirmed By:INA HELM MD
[2022-03-10] MEDS: Ondansetron 4 MG/2 ML Vial IV (17:45)
[2022-03-10] MEDS: 0.9% Normal Saline 1,000 ML 1000 ML IV (17:47)
[2022-03-10] MEDS: Morphine 4 MG/ML Syringe IV (17:47)
[2022-03-10 17:53] LABS: Absolute Neutrophil Count 3.1 X10^3/uL (2.0-7.7); Basophil# 0.01 X10^3/uL; Basophil% 0.3 % (0-1); Eosinophil# 0.01 X10^3/uL; Eosinophils% 0.3 % (0-5); Hematocrit 34.9 % (37-47); Hemoglobin 11.9 g/dL (12.0-15.0); Lymphocyte % 10.6 % (19-41); Mean Corp Hgb Conc 34.1 g/dL (32-36); Mean Corpuscular Hgb 31.7 pg (27.0-32.0); Mean Corpuscular Volume 93.1 fL (81-99); Mean Platelet Vol. 11.4 fl (6.2-12.0); Monocyte# 0.18 X10^3/uL; Monocyte% 4.8 % (0-10); NRBC Flagged by Analyzer 0 % (0-5); Neutrophil # 3.14 X10^3/uL (2.7-7.7); Neutrophil % 83.5 % (47-70); POSITIVE COUNT YES; POSITIVE DIFFERENTIAL YES; Platelet Count 55 K/mm3 (150-450); RBC Distribution Width CV 15.9 % (11.6-14.6); RBC Distribution Width SD 52.7 fl (35.1-43.9); Red Blood Count 3.75 M/mm3 (4.2-5.4); White Blood Count 3.8 K/mm3 (4.4-11.0)
[2022-03-10 17:54] LABS: Differential Indicated SCAN CRITERIA MET
--- NOTE | 2022-03-10 17:57 | EX.ED.DYSGE1 ---
HPI <ANDREW Wagner - Last Filed: 03/10/22 19:13> History of Present Illness Chief Complaint: Chest Pain Narrative Narrative: 66-year-old female with history of colon cancer with mets to the liver, stomach and elevated blood pressure presents to the emergency department with right-sided back pain. Patient currently receive chemotherapy by mouth as well as do infusion through her port, patient states today while receiving her chemotherapy, she developed sharp stabbing gnawing pain to her right thoracic area to the right of the spine. Patient denies any injury. Patient states that it is not point tender, patient denies any pain worsening with position change. Patient denies any shortness of breath. Patient denies any chest pain. Patient denies any recent fevers or chills. PFSH <ANDREW Wagner - Last Filed: 03/10/22 19:13> [facility] Medical History (Updated 03/10/22 @ 21:[address] Matt Hairston MD) Anemia Cancer Depression Hypertension Hypothyroidism Non-smoker Serum total bilirubin elevated Thrombocytopenia Home Medications acetaminophen [Tylenol] 650 mg PO Q4H PRN 09/02/21 [History Last Taken Unknown] lorazepam [Ativan] 1 mg PO BID PRN 09/02/21 [History Last Taken Unknown] ondansetron HCl 8 mg PO Q8H PRN 09/02/21 [History Last Taken Unknown] promethazine 25 mg PO TID PRN #14 tab 09/02/21 [Rx Last Taken Unknown] dicyclomine 20 mg PO Q6H 09/19/21 [History Last Taken Unknown] etodolac 400 mg PO BID PRN 09/19/21 [History Last Taken 09/19/21] fluoxetine 20 mg PO DAILY 09/19/21 [History Last Taken 09/19/21] levothyroxine 137 mcg PO DAILY 09/19/21 [History Last Taken Unknown] omeprazole 40 mg PO DAILY 09/19/21 [History Last Taken 09/19/21] ciprofloxacin HCl [Cipro] 500 mg PO BID #6 tab 09/21/21 [Rx Last Taken Unknown] lisinopril 30 mg PO DAILY #0 tab 09/21/21 [Rx Last Taken Unknown] potassium, sodium phosphates 1 packet PO TID #10 ea 09/21/21 [Rx Last Taken Unknown] Allergy/AdvReac Type Severity Reaction Status Date / Time No Known Allergies Allergy Verified 03/10/22 17:04 Family History (Updated 09/19/21 @ 20:[address] Catrachita Sutton MD) Mother Cancer Breast CA history. Father Cancer Hx Lymphoma. Surgical History (Updated 09/19/21 @ 20:[address] Catrachita Sutton MD) H/O resection of liver Hx of tubal ligation S/P cholecystectomy S/P hernia repair S/P partial colectomy S/P unilateral salpingo-oophorectomy Social History (Updated 09/19/21 @ 20:[address] Catrachita Sutton MD) household members: none Smoking Status: Never smoker alcohol intake: never substance use type: does not use ROS <ANDREW Wagner - Last Filed: 03/10/22 19:13> ROS ED ROS Narrative Constitutional: Negative for fever, chills, weight loss, weakness Eyes: Negative for vision loss, vision change, double vision ENT: Negative for any sore throat, ear pain, congestion Cardiovascular: Negative for any chest pain, tightness, palpitations, racing heartbeat Respiratory: Negative for any cough, sputum production, hemoptysis, shortness of breath, shortness of breath on exertion, orthopnea Gastrointestinal: Negative for any abdominal pain, nausea, vomiting, diarrhea, constipation, blood in stool, blood in vomit : Negative for any urinary frequency, incontinence, dysuria, retention, blood in urine Muscle skeletal: Negative for any muscle joint pain, stiffness, myalgias, arthralgias, neck pain. Positive for right mid back pain Neurological: Negative for any headache, dizziness, syncope, numbness or tingling Skin: Negative for any rashes, lumps, itching, abrasions, lacerations Psychiatric: Negative for any depression, anxiety, stress, suicidal ideation, homicidal ideation Hematologic: Negative for any easy bruising, excessive bruising, easy bleeding Allergies: Negative for any eczema, hives, rash EXAM <ANDREW Wagner - Last Filed: 03/10/22 19:13> Physical Exam Narrative Exam Narrative: Vital signs reviewed. Patient does appear to be in mild distress secondary to pain to her right mid back. Patient does constantly move positions because of her pain. HEET: Head normocephalic atraumatic, TMs clear bilaterally. Posterior pharynx is clear, moist mucous membranes. Nares clear bilaterally. Neck: Supple with no lymphadenopathy or tenderness. No signs of meningismus, negative jolt sign. Cardiac: Regular rate and rhythm no murmurs gallops or rubs, equal peripheral pulses bilaterally. Respiratory: Lungs clear to auscultation bilaterally. No chest tenderness. Abdomen: Soft, nontender, nondistended. No abdominal bruit or pulsatile masses. No hepatosplenomegaly Extremities: No peripheral edema, no signs of gross trauma or deformity. Active full range of motion of all extremities. Neuro: Cranial nerves II through XII intact, no focal neurological deficits. Skin: Clean dry and intact with no rash, purpura, petechiae, vesicles or pustules. Backslash flank: No CVA tenderness, no midline spinal tenderness, no deformity. Patient has no point tenderness. Psych: Normal mood and affect. No SI, HI or acute psychosis. Const Vital Signs: 03/10/22 17:04 03/10/22 17:13 03/10/22 17:15 Temperature 97.7 F L Temperature Source Temporal Pulse Rate 62 56 L Respiratory Rate 16 Respiratory Effort Normal Non-Labored Blood Pressure 148/55 H 165/75 H Blood Pressure Mean 86 105 Pulse Ox 97 Oxygen Delivery Method Room Air 03/10/22 18:12 03/10/22 19:00 03/10/22 20:06 Temperature Temperature Source Pulse Rate 69 65 60 Respiratory Rate 23 H 13 16 Respiratory Effort Blood Pressure 179/73 H 192/79 H 172/79 H Blood Pressure Mean 108 116 110 Pulse Ox 98 97 Oxygen Delivery Method Room Air Room Air Positive well nourished and well developed General Appearance ED: well developed <Dr. Matt Hairston MD - Last Filed: 03/10/22 21:34> Physical Exam Const Vital Signs: 03/10/22 17:04 03/10/22 17:13 03/10/22 17:15 Temperature 97.7 F L Temperature Source Temporal Pulse Rate 62 56 L Respiratory Rate 16 Respiratory Effort Normal Non-Labored Blood Pressure 148/55 H 165/75 H Blood Pressure Mean 86 105 Pulse Ox 97 Oxygen Delivery Method Room Air 03/10/22 18:12 03/10/22 19:00 03/10/22 20:06 Temperature Temperature Source Pulse Rate 69 65 60 Respiratory Rate 23 H 13 16 Respiratory Effort Blood Pressure 179/73 H 192/79 H 172/79 H Blood Pressure Mean 108 116 110 Pulse Ox 98 97 Oxygen Delivery Method Room Air Room Air [facility] <Hector KrishnamurthyANDREW zamorano - Last Filed: 03/10/22 19:13> [facility] Narrative Medical decision making narrative: Patient presented mild distress secondary to right-sided back pain. Patient did receive a basic laboratory values as well as a cardiac work-up. Patient's EKG showed sinus bradycardia however no other ectopy. Patient CBC showed slight anemia, patient's chemistries were unremarkable. Patient's troponin was 15. I do not believe this is a cardiac pathology. Patient did receive a chest x-ray which showed no acute process. Patient was given IV morphine, redosed with IV Dilaudid for ongoing uncontrolled pain. Lab Data Labs: Laboratory Results - last 24 hr 03/10/22 03/10/22 17:40 17:40 WBC 3.8 L RBC 3.75 L Hgb 11.9 L Hct 34.9 L MCV 93.1 MCH 31.7 MCHC 34.1 RDW Std Deviation 52.7 H RDW Coeff of Halima 15.9 H Plt Count 55 L MPV 11.4 Immature Gran % (Auto) 0.500 Neut % (Auto) 83.5 H Lymph % (Auto) 10.6 L Sol[place] % (Auto) 4.8 Eos % (Auto) 0.3 Baso % (Auto) 0.3 Absolute Neuts (auto) 3.1 Absolute Lymphs (auto) 0.40 L Nucleated RBC % 0 Differential Comment Diff Path Review May foll Platelet Estimate MKD DEC RBC Morphology NORM C+C Sodium 140 Potassium 3.8 Chloride 108 H Carbon Dioxide 28.0 Anion Gap 4 L BUN 12 Creatinine 0.57 Estim Creat Clear Calc 53.09 Est GFR (MDRD) Af Amer 136 Est GFR (MDRD) Non-Af 112 BUN/Creatinine Ratio 21.0 H Glucose 89 Calcium 9.1 Troponin I High Sens 15 Radiography Chest X-Ray - ED: 1 View Diagnostic Testing: Clinical Impression(s) from Imaging Studies Chest X-Ray 03/10/22 18:25 IMPRESSION: There are no acute findings. Electronically Signed: Manjinder Miranda MD at 18:52 EDT , EKG Sinus bradycardia: Attestation: I personally reviewed and interpreted this EKG as follows: Interpretation: Sinus Bradycardia Comments: Sinus bradycardia, rate of 56 bpm, AZ interval 134 ms, QRS duration 92 ms, no acute ST elevation, no acute infarct noted. <Dr. Matt Hairston MD - Last Filed: 03/10/22 21:34> [facility] Narrative Medical decision making narrative: I have personally performed a face to face assessment of the patient and have reviewed the SHARI Note. I performed a substantive portion of the visit including all aspects of the following. My luna findings include: History is remarkable for abrupt onset of right scapular/back pain while receiving chemotherapy. She now complains of right anterior chest pain and right upper quadrant pain. Past medical history is remarkable for cancer with metastasis to liver and possibly stomach. She denies pleuritic pain. She denies shortness of breath. She denies fever or chills. She denies dyspnea or dyspnea on exertion. There is no history of trauma. Exam is patient appears slightly pale. Conjunctive a however is pink. HEENT exams unremarkable. Lungs are clear to auscultation with fair movement of air bilaterally. Heart is regular without murmur, gallop or rub. Abdomen is remarkable for tenderness in the right upper quadrant. There is no CVA tenderness noted. There is no evidence of trauma to the torso. Lower extremity exam is unremarkable. There is no asymmetry, swelling, discoloration, leg vein distention, palpable cords or tenderness along the distribution of the deep venous system. Neuro exam is nonfocal. Medical Decision Making with abrupt onset of migratory pain this may represent metastasis or pain of unknown etiology. Since she is not tachycardic tachypneic denies pleuritic pain and now the pain that was present in the back scapular region has dissipated doubt pulmonary embolus. Will obtain chest x-ray to evaluate for pneumothorax, lytic lesions and will obtain CBC to assess white count and H&H. Other additions or changes: [None] Lab Data Attestation: I reviewed the patient's lab results. Lab results narrative: CBC is remarkable for pancytopenia. Basic metabolic panel is remarkable for an elevated BUN to creatinine ratio however the BUN and creatinine are both normal. Labs: Laboratory Results - last 24 hr 03/10/22 03/10/22 17:40 17:40 WBC 3.8 L RBC 3.75 L Hgb 11.9 L Hct 34.9 L MCV 93.1 MCH 31.7 MCHC 34.1 RDW Std Deviation 52.7 H RDW Coeff of Halima 15.9 H Plt Count 55 L MPV 11.4 Immature Gran % (Auto) 0.500 Neut % (Auto) 83.5 H Lymph % (Auto) 10.6 L Sol[place] % (Auto) 4.8 Eos % (Auto) 0.3 Baso % (Auto) 0.3 Absolute Neuts (auto) 3.1 Absolute Lymphs (auto) 0.40 L Nucleated RBC % 0 Differential Comment Diff Path Review May foll Platelet Estimate MKD DEC RBC Morphology NORM C+C Sodium 140 Potassium 3.8 Chloride 108 H Carbon Dioxide 28.0 Anion Gap 4 L BUN 12 Creatinine 0.57 Estim Creat Clear Calc 53.09 Est GFR (MDRD) Af Amer 136 Est GFR (MDRD) Non-Af 112 BUN/Creatinine Ratio 21.0 H Glucose 89 Calcium 9.1 Troponin I High Sens 15 Radiography Chest X-Ray - ED: 1 View (Hest x-ray interpreted by me reveals chronic changes. There is no infiltrate, effusion or pneumothorax. There is no lytic lesions noted. Cardiac silhouette size is unremarkable.) Diagnostic Testing: Clinical Impression(s) from Imaging Studies Chest X-Ray 03/10/22 18:25 IMPRESSION: There are no acute findings. Electronically Signed: Manjnider Miranda MD at 18:52 EDT Reading Location ID and State: [facility] / [place] , Service support , Discharge Plan Triage Chief Complaint: Chest Pain ED Midlevel Provider: Hector Potter ED Provider: Matt aHirston Dx/Rx/DC Orders Clinical Impression: Back pain, Acute right-sided thoracic back pain, Colon cancer metastasized to liver Instructions: ED Pain, Acute, Uncertain Cause Prescriptions: No Action acetaminophen [Tylenol] 325 mg Tablet 650 mg PO Q4H PRN (Reason: Pain) RF: 0 ondansetron HCl 8 mg Tablet 8 mg PO Q8H PRN (Reason: Nausea) RF: 0 lorazepam [Ativan] 1 mg Tablet 1 mg PO BID PRN (Reason: Anxiety) RF: 0 promethazine 25 mg tablet 25 mg PO TID PRN (Reason: nausea and vomiting) Qty: 14 RF: 0 levothyroxine 137 mcg tablet 137 mcg PO DAILY RF: 0 omeprazole 40 mg capsule,delayed release(DR/EC) 40 mg PO DAILY RF: 0 etodolac 400 mg tablet 400 mg PO BID PRN (Reason: Back Pain) RF: 0 fluoxetine 20 mg capsule 20 mg PO DAILY RF: 0 dicyclomine 20 mg tablet 20 mg PO Q6H RF: 0 ciprofloxacin HCl [Cipro] 500 mg tablet 500 mg PO BID Qty: 6 RF: 0 lisinopril 20 mg tablet 30 mg PO DAILY Qty: 0 RF: 0 potassium, sodium phosphates 280-160-250 mg Powder In Packet 1 packet PO TID Qty: 10 RF: 0 Primary Care Provider: Kimberly Ruelas Referrals: Kimberly Ruelas MD [Primary Care Provider] - 3-5 Days if not improving Disposition Disposition: Home, Self Care
[2022-03-10 18:05] LABS: Anion Gap 4 (5-15); BUN 12 mg/dL (7-18); Calcium,Total 9.1 mg/dL (8.5-10.1); Chloride 108 mmol/L (98-107); Creatinine, Serum 0.57 mg/dL (0.55-1.02); EST Glomerular Filtration Rate 112 mL/min (>60); Est Glom Filt Rate - Afr Amer 136 mL/min (>60); Estimated Creatinine Clearance 53.09 ml/min; Glucose 89 mg/dL (74-106); Potassium 3.8 mmol/L (3.5-5.1); Sodium Level 140 mmol/L (136-145); Troponin-I HS 15 pg/mL (3.0-54.0)
[2022-03-10 18:12] VITALS: BP 179/73; PULSE 69; RESP 23
[2022-03-10] MEDS: HYDROmorphone 0.5 MG/0.5 ML SYRINGE IV (18:23)
--- NOTE | 2022-03-10 18:25 | RAD_ITS ---
STUDY: X-RAY CHEST REASON FOR EXAM: Female, 66 years old. CHEST PAIN chest pain TECHNIQUE: XR Chest 1 View COMPARISON: 09.02.21 FINDINGS: There is no demonstrated pleural abnormality. There is a right Port-A-Cath and/or mediport in place. The tip is in the superior vena cava. Normal size heart. Normal mediastinum and merlene. Normal visualized pulmonary arteries. There is atherosclerotic calcification of the aortic arch with tortuosity. There are diffuse degenerative changes of the visualized thoracic spine. There is degenerative osteoarthritis of the bilateral shoulders. There is no demonstrated abnormality of the visualized soft tissue structures of the upper abdomen. RAD/Chest 1 View (Portable) IMPRESSION: There are no acute findings. Electronically Signed: Manjinder Miranda MD at 18:52 EDT ,
[2022-03-10 19:00] VITALS: BP 192/79; PULSE 65; RESP 13; O2SAT 98
[2022-03-10 19:04] LABS: Platelet Estimate MKD DEC (ADEQ); Red Cell Morphology NORM C+C NORMAL (NORM C&C)
[2022-03-10 20:06] VITALS: BP 172/79; PULSE 60; RESP 16; O2SAT 97
[2022-03-10 21:46] VITALS: BP 151/79; PULSE 69; RESP 16
[2022-03-13 10:12] LABS: Pathologist Review Reviewed
== END 2022-03-10 21:48 | disposition home or self-care (01) ==
PROVIDERS: Nurse Practitioner; Emergency Provider Emergency Medicine; PCP Internal Medicine; Visit Provider Emergency Medicine
DX: R07.9 Chest pain, unspecified (principal); C78.7 Secondary malignant neoplasm of liver and intrahepatic bile duct; C18.9 Malignant neoplasm of colon, unspecified; D69.6 Thrombocytopenia, unspecified; R10.11 Right upper quadrant pain; M54.6 Pain in thoracic spine; I10 Essential (primary) hypertension; R00.1 Bradycardia, unspecified; D64.9 Anemia, unspecified; E03.9 Hypothyroidism, unspecified
CPT/HCPCS: 71045; 80048; 84484; 85025; 93005; 99285; J7030; A4216; J2405

== ENCOUNTER 2022-03-23 23:21 | Emergency (ER) | payer MEDICARE, OTHER, SELFPAY ==
[2022-03-23 23:22] VITALS: BP 185/74; PULSE 86; RESP 16; TEMP 36.1; O2SAT 97; BMI 30.6
--- NOTE | 2022-03-23 23:41 | EDS_ITS ---
HPI History of Present Illness Chief Complaint: Eye Problem Narrative Narrative: Patient presents to the emergency department because she thought that her left eye was bleeding. She relates history that she is currently being treated for periorbital cellulitis. She went to urgent care today and was put on doxycycline and an eye cream. She did not start her antibiotic yet because she wanted to wait after her chemotherapy tomorrow. However, she experienced an episode of nausea and vomiting, and threw up once without any blood in her emesis. She noticed that the underside of her left eye was red and and appeared to be bleeding. She denies any loss of vision. No fevers or chills. She does not take any blood thinners. [facility] Medical History Anemia Cancer Depression Hypertension Hypothyroidism Non-smoker Serum total bilirubin elevated Thrombocytopenia Home Medications acetaminophen [Tylenol] 650 mg PO Q4H PRN 09/02/21 [History Last Taken Unknown] lorazepam [Ativan] 1 mg PO BID PRN 09/02/21 [History Last Taken Unknown] ondansetron HCl 8 mg PO Q8H PRN 09/02/21 [History Last Taken Unknown] promethazine 25 mg PO TID PRN #14 tab 09/02/21 [Rx Last Taken Unknown] dicyclomine 20 mg PO Q6H 09/19/21 [History Last Taken Unknown] etodolac 400 mg PO BID PRN 09/19/21 [History Last Taken 09/19/21] fluoxetine 20 mg PO DAILY 09/19/21 [History Last Taken 09/19/21] levothyroxine 137 mcg PO DAILY 09/19/21 [History Last Taken Unknown] omeprazole 40 mg PO DAILY 09/19/21 [History Last Taken 09/19/21] ciprofloxacin HCl [Cipro] 500 mg PO BID #6 tab 09/21/21 [Rx Last Taken Unknown] lisinopril 30 mg PO DAILY #0 tab 09/21/21 [Rx Last Taken Unknown] potassium, sodium phosphates 1 packet PO TID #10 ea 09/21/21 [Rx Last Taken Unknown] Allergy/AdvReac Type Severity Reaction Status Date / Time No Known Allergies Allergy Verified 03/23/22 23:25 Family History Mother Cancer Breast CA history. Father Cancer Hx Lymphoma. Surgical History H/O resection of liver Hx of tubal ligation S/P cholecystectomy S/P hernia repair S/P partial colectomy S/P unilateral salpingo-oophorectomy Social History household members: none Smoking Status: Never smoker alcohol intake: never substance use type: does not use ROS ROS ED ROS Narrative Constitutional: No fever, no chills. HEENT: No sore throat. No neck pain. No loss of vision. No rhinorrhea. Left eye redness/bleeding. Being treated for left lower lid periorbital cellulitis. Cardiovascular: No chest pain. No palpitations. No pedal edema. Respiratory: No cough, no shortness of breath. Abdominal: No abdominal pain. No nausea. No vomiting. Genitourinary: No dysuria. No hematuria. Musculoskeletal: No myalgias. No arthralgias. Neurologic: No headaches. No dizziness. No lightheadedness. Skin: No rash. No change in color. Psychiatric: No depression. No anxiety. EXAM Physical Exam Narrative Exam Narrative: Afebrile. Vital signs noted. HEENT: Normocephalic. Atraumatic. PERRL, EOMI. no entrapment. No pain with movement of left eye. Left lower lid with mild erythema and minimal swelling. Positive subconjunctival hemorrhage on underside of left eye and laterally. Neck soft and supple. No point tenderness or step off. Cardiovascular: Regular rate and rhythm. No murmurs, rubs, or gallops appreciated. Respiratory: No tachypnea. Lungs clear to auscultation bilaterally. Gastrointestinal: Abdomen soft, nontender, with normoactive bowel sounds. No rebound or guarding. Neurological: Awake. Alert. Nonfocal, nonlateralizing. Skin: No rash. Normal color. No pallor. Musculoskeletal: No pedal edema. Full range of motion extremities. Const Vital Signs: 03/23/22 23:22 Temperature 96.9 F L Temperature Source Oral Pulse Rate 86 Respiratory Rate 16 Blood Pressure 185/74 H Blood Pressure Mean 111 Pulse Ox 97 Oxygen Delivery Method Room Air MDM MDM MDM Narrative Medical decision making narrative: Patient was reassured. I do not feel that emergent CT scanning of the orbits is indicated. There is no evidence of entrapment. She was told to start her antibiotics and apply warm compresses. I do feel that her subconjunctival hemorrhage is limited. She does not take blood thinners. I feel she can be discharged safely home with follow-up. Return instructions to the emergency department were reviewed. Disposition is discharged home in stable condition. Discharge Plan Triage Chief Complaint: Eye Problem ED Provider: Heber Lassiter Dx/Rx/DC Orders Clinical Impression: Subconjunctival hemorrhage, Periorbital cellulitis of left eye Instructions: ED Periorbital Cellulitis, ED Subconjunctival Hemorrhage Prescriptions: No Action acetaminophen [Tylenol] 325 mg Tablet 650 mg PO Q4H PRN (Reason: Pain) RF: 0 ondansetron HCl 8 mg Tablet 8 mg PO Q8H PRN (Reason: Nausea) RF: 0 lorazepam [Ativan] 1 mg Tablet 1 mg PO BID PRN (Reason: Anxiety) RF: 0 promethazine 25 mg tablet 25 mg PO TID PRN (Reason: nausea and vomiting) Qty: 14 RF: 0 levothyroxine 137 mcg tablet 137 mcg PO DAILY RF: 0 omeprazole 40 mg capsule,delayed release(DR/EC) 40 mg PO DAILY RF: 0 etodolac 400 mg tablet 400 mg PO BID PRN (Reason: Back Pain) RF: 0 fluoxetine 20 mg capsule 20 mg PO DAILY RF: 0 dicyclomine 20 mg tablet 20 mg PO Q6H RF: 0 ciprofloxacin HCl [Cipro] 500 mg tablet 500 mg PO BID Qty: 6 RF: 0 lisinopril 20 mg tablet 30 mg PO DAILY Qty: 0 RF: 0 potassium, sodium phosphates 280-160-250 mg Powder In Packet 1 packet PO TID Qty: 10 RF: 0 Primary Care Provider: Kimberly Ruelas Referrals: Kimberly Ruelas MD [Primary Care Provider] - 3-5 Days if not improving Disposition Disposition: Home, Self Care Discharge Date/Time: 03/23/22 23:54
== END 2022-03-23 23:54 | disposition home or self-care (01) ==
PROVIDERS: Emergency Provider Emergency Medicine; PCP Internal Medicine; Visit Provider Emergency Medicine
DX: H11.30 Conjunctival hemorrhage, unspecified eye (principal); L03.213 Periorbital cellulitis; I10 Essential (primary) hypertension; F32.A Depression, unspecified; E03.9 Hypothyroidism, unspecified
CPT/HCPCS: 99282

== ENCOUNTER 2022-04-15 23:08 | Emergency (ER) | payer MEDICARE, OTHER, SELFPAY ==
[2022-04-15 23:09] VITALS: PULSE 60; RESP 15; TEMP 36.8; O2SAT 97; BMI 28.8
[2022-04-15 23:33] LABS: Mucous, Urine 0 SEEN /hpf (<or=2+); Red Blood Cells-Urine 0 SEEN /hpf (0-5)
[2022-04-15 23:43] LABS: Color, Urine Yellow (Yellow); Glucose, Dipstick Normal (Normal); Ketone-Dipstick Negative (Negative); Leukocyte Esterase-Dipstick 500 /ul (Negative); Nitrite-Dipstick Negative (Negative); Occult Blood-Urine 25 /ul (Negative); Protein-Dipstick Negative (Negative); Specific Gravity, Urine 1.015 (1.002-1.030); Urine Bilirubin Dipstick Negative (Negative); Urine Clarity Clear (Clear); Urine Urobilinogen 1 mg/dl (Normal)
[2022-04-15 23:44] LABS: Absolute Lymphocyte Count 0.77 X10^3/uL (0.83-4.51); Absolute Neutrophil Count 2.1 X10^3/uL (2.0-7.7); Basophil# 0.01 X10^3/uL; Basophil% 0.3 % (0-1); Eosinophil# 0.03 X10^3/uL; Hematocrit 32.8 % (37-47); Hemoglobin 11.3 g/dL (12.0-15.0); Lymphocyte # 0.77 X10^3/ul (0.83-4.51); Lymphocyte % 24.9 % (19-41); Mean Corp Hgb Conc 34.5 g/dL (32-36); Mean Corpuscular Volume 95.9 fL (81-99); Mean Platelet Vol. 10.4 fl (6.2-12.0); Monocyte# 0.17 X10^3/uL; Monocyte% 5.5 % (0-10); NRBC Flagged by Analyzer 0 % (0-5); Neutrophil # 2.11 X10^3/uL (2.7-7.7); Neutrophil % 68.3 % (47-70); POSITIVE COUNT YES; Platelet Count 82 K/mm3 (150-450); RBC Distribution Width CV 17.5 % (11.6-14.6); RBC Distribution Width SD 57.4 fl (35.1-43.9); Red Blood Count 3.42 M/mm3 (4.2-5.4); White Blood Count 3.1 K/mm3 (4.4-11.0)
--- NOTE | 2022-04-15 23:48 | EKG12_ITS ---
Test Reason : ABD PAIN Blood Pressure : / mmHG Vent. Rate : 054 BPM Atrial Rate : 054 BPM P-R Int : 144 ms QRS Dur : 090 ms QT Int : 480 ms P-R-T Axes : 043 -06 016 degrees QTc Int : 455 ms Sinus bradycardia Voltage criteria for left ventricular hypertrophy Abnormal ECG Confirmed by MYNOR RADER, ARCHANA ([id number]), editor & co founder KWAME MCLAUGHLIN ([id number] on 04/18/2022 1:14:13 PM Referred By: PL Confirmed By:ARCHANA LOWE MD
--- NOTE | 2022-04-15 23:50 | EX.ED.DYSGE1 ---
HPI History of Present Illness Chief Complaint: Abd Pain Informant: patient Narrative Narrative: Patient states she started with pain right upper quadrant about 2 days ago. It seemed to go away on but then its come back. She states breathing does not bother her at all. She is not short of breath or coughing. She has no nausea vomiting diarrhea or change in bowel habits. Eating does not bother it. Moving or twisting does. She states she has done some work and walking but does not think she is done anything to bother it. She states sometimes when she walks a lot she will have some discomfort like this though. She evidently has been having a lot of stomach problems. She is set to have a CAT scan of her abdomen in about 2 weeks. She does have a history of liver cancer with resection in 2011 and . They also did cholecystectomy per the patient. Appendix is still present but she does not have pain quite that low. She also had a partial colectomy in 2011. None of her studies have shown recurrence but evidently some of her blood tests show she could have mild disease so she takes an unknown chemotherapy pill once every 2 weeks and this has been going on for years. [facility] Medical History Anemia Cancer Depression Hypertension Hypothyroidism Non-smoker Serum total bilirubin elevated Thrombocytopenia Home Medications acetaminophen [Tylenol] 650 mg PO Q4H PRN 09/02/21 [History Last Taken Unknown] lorazepam [Ativan] 1 mg PO BID PRN 09/02/21 [History Last Taken Unknown] ondansetron HCl 8 mg PO Q8H PRN 09/02/21 [History Last Taken Unknown] etodolac 400 mg PO BID PRN 09/19/21 [History Last Taken 09/19/21] fluoxetine 20 mg PO DAILY 09/19/21 [History Last Taken 09/19/21] levothyroxine 137 mcg PO DAILY 09/19/21 [History Last Taken Unknown] omeprazole 40 mg PO DAILY 09/19/21 [History Last Taken 09/19/21] lisinopril 30 mg PO DAILY #0 tab 09/21/21 [Rx Last Taken Unknown] potassium, sodium phosphates 1 packet PO TID #10 ea 09/21/21 [Rx Last Taken Unknown] oxycodone-acetaminophen [Percocet] 1 tab PO Q6H PRN 3 Days #12 tab 04/16/22 [Rx Last Taken Unknown] Allergy/AdvReac Type Severity Reaction Status Date / Time No Known Allergies Allergy Verified 04/15/22 23:10 Family History Mother Cancer Breast CA history. Father Cancer Hx Lymphoma. Surgical History H/O resection of liver Hx of tubal ligation S/P cholecystectomy S/P hernia repair S/P partial colectomy S/P unilateral salpingo-oophorectomy Social History household members: none Smoking Status: Never smoker alcohol intake: never substance use type: does not use ROS ROS ED Constitutional Constitutional ED: Denies chills or fever(s) ENT ENT ED: Denies rhinorrhea Cardiovascular Cardiovascular: Denies chest pain, orthopnea or paroxysmal nocturnal dyspnea Respiratory/Chest Respiratory/Chest: Denies cough, dyspnea, dyspnea on exertion, orthopnea, paroxysmal nocturnal dyspnea or sputum Gastrointestinal Gastrointestinal: Reports abdominal pain; Denies constipation, diarrhea, melena, nausea or vomiting Genitourinary Genitourinary ED: Denies dysuria or hematuria Musculoskeletal Musculoskeletal: Denies back pain, myalgias or neck pain Integumentary Denies rash Neurologic Neurologic: Denies headache(s), paresthesias or weakness Endocrine Endocrinology: Denies polydipsia or polyuria Allergic/Immunologic Allergic/Immunologic ED: Denies urticaria EXAM Physical Exam Const Vital Signs: 04/15/22 23:09 Temperature 98.3 F Temperature Source Temporal Pulse Rate 60 Respiratory Rate 15 Pulse Ox 97 Oxygen Delivery Method Room Air Positive well nourished and well developed General Appearance ED: well developed; Negative for cyanotic or diaphoretic HEENT Reports moist mucous membranes Eyes General Eye ED: Negative for pale conjunctiva or scleral icterus Neck no JVD Chest Wall inspection of chest normal Resp normal respiratory effort and clear to auscultation bilaterally Resp Narrative: No pain with a deep breath. I press up on all the ribs in the anterior lateral region there is no tenderness. Her pain seems to be below the lowest rib. I see no vesicles. Effort and Inspection: Negative for pain with movement Auscultation: Negative for rales, rhonchi or wheezes Cardio regular rate and regular rhythm GI normal to inspection, nondistended, normoactive bowel sounds GI Narrative: Patient does have some mild right upper quadrant tenderness mostly with deeper palpation. No rebound or guarding. I do not feel a mass. She then told me that she has had pains like this that are thought to be due to scar tissue. Palpation: soft Back/Spine no CVA tenderness Extremity normal to inspection General Extremety ED: Negative for edema or tenderness General Extremity: Negative for edema Neuro Sensorium / Orientation: alert Psych mental status grossly normal Skin no rashes or lesions noted and no wounds MDM MDM MDM Narrative Medical decision making narrative: Patient's blood work showed minimally decreased white count and hemoglobin and platelets. This pancytopenia is not new and in fact it is little better than it has been in the past. Electrolytes show no marked abnormalities. Liver function tests are at baseline. Lactic acid was normal. Urine showed a few white cells but negative nitrites clear and no symptoms of UTI. I do not think this requires treatment. I will send a culture. CT did scan did show some changes from her last. Most notably was the increase in size of the lesion in her right upper abdominal wall. This is right where she is sore. This also explains why she is sore with moving and twisting since that would use the abdominal wall muscles. I explained the changes in her CT. I will give her meds for pain. She has an appointment with Dr. Lopez on Sunday. I explained that she can call on Sunday to see if they can get her in. Let them know that she just had a CAT scan that did show new changes. I explained that this could need alteration of her medication/chemotherapy. It also may need surgery or radiation or other treatment. We discussed that if she develops further pain, vomiting, fevers or other symptoms she should return Lab Data Attestation: I reviewed the patient's lab results. Labs: Laboratory Results - last 24 hr 04/15/22 04/15/22 04/15/22 23:25 23:27 23:27 WBC 3.1 L RBC 3.42 L Hgb 11.3 L Hct 32.8 L MCV 95.9 MCH 33.0 H MCHC 34.5 RDW Std Deviation 57.4 H RDW Coeff of Halima 17.5 H Plt Count 82 L MPV 10.4 Immature Gran % (Auto) 0.000 Neut % (Auto) 68.3 Lymph % (Auto) 24.9 [place] % (Auto) 5.5 Eos % (Auto) 1.0 Baso % (Auto) 0.3 Absolute Neuts (auto) 2.1 Absolute Lymphs (auto) 0.77 L Nucleated RBC % 0 Sodium 140 Potassium 4.4 Chloride 108 H Carbon Dioxide 27.0 Anion Gap 5 BUN 17 Creatinine 0.76 Estim Creat Clear Calc 53.09 Est GFR (MDRD) Af Amer 98 Est GFR (MDRD) Non-Af 81 BUN/Creatinine Ratio 22.4 H Glucose 101 Lactic Acid Calcium 9.1 Total Bilirubin Direct Bilirubin AST ALT Alkaline Phosphatase Troponin I High Sens Total Protein Albumin Globulin Lipase Urine Color Yellow Urine Clarity Clear Urine pH 6.0 Ur Specific [place] 1.015 Urine Protein Negative Urine Glucose (UA) Normal Urine Ketones Negative Urine Occult Blood 25 H Urine Nitrite Negative Urine Bilirubin Negative Urine Urobilinogen 1 H Ur Leukocyte Esterase 500 H Urine RBC 0 SEEN Urine WBC 25-50 SEEN Ur Squamous Epith Cells 0-5 SEEN Ur Transition Epith Cell 0-5 SEEN Urine Bacteria 1+ Urine Mucus 0 SEEN 04/15/22 04/15/22 23:27 23:55 WBC RBC Hgb Hct MCV MCH MCHC RDW Std Deviation RDW Coeff of Halima Plt Count MPV Immature Gran % (Auto) Neut % (Auto) Lymph % (Auto) [place] % (Auto) Eos % (Auto) Baso % (Auto) Absolute Neuts (auto) Absolute Lymphs (auto) Nucleated RBC % Sodium Potassium Chloride Carbon Dioxide Anion Gap BUN Creatinine Estim Creat Clear Calc Est GFR (MDRD) Af Amer Est GFR (MDRD) Non-Af BUN/Creatinine Ratio Glucose Lactic Acid 0.6 Calcium Total Bilirubin 1.10 H Direct Bilirubin 0.31 H AST 29 ALT 19 Alkaline Phosphatase 119 H Troponin I High Sens 11 Total Protein 7.1 Albumin 3.7 Globulin 3.4 Lipase 83 Urine Color Urine Clarity Urine pH Ur Specific [place] Urine Protein Urine Glucose (UA) Urine Ketones Urine Occult Blood Urine Nitrite Urine Bilirubin Urine Urobilinogen Ur Leukocyte Esterase Urine RBC Urine WBC Ur Squamous Epith Cells Ur Transition Epith Cell Urine Bacteria Urine Mucus Radiography Diagnostic Testing: Clinical Impression(s) from Imaging Studies Abdomen/Pelvis CT 04/16/22 23:48 IMPRESSION: Abdominal masses including a large lobulated mass within the abdominal wall on the right, mesenteric mass and superficial hepatic versus subserosal mass. Findings suggestive of malignancy / metastatic disease and/or peritoneal carcinomatosis. Postsurgical changes of the liver. Splenomegaly. Ventral hernia containing transverse colon without evidence of complication. Electronically Signed: Ruth Ann Templeton MD at 0:49 EDT , Discharge Plan Triage Chief Complaint: Abd Pain ED Provider: Osmar Gomez Dx/Rx/DC Orders Clinical Impression: Abdominal wall anomaly, Abdominal wall pain, History of liver cancer Instructions: Abdominal Pain Prescriptions: New oxycodone-acetaminophen [Percocet] 5-325 mg tablet 1 tab PO Q6H PRN (Reason: pain) 3 Days Qty: 12 RF: 0 No Action acetaminophen [Tylenol] 325 mg Tablet 650 mg PO Q4H PRN (Reason: Pain) RF: 0 ondansetron HCl 8 mg Tablet 8 mg PO Q8H PRN (Reason: Nausea) RF: 0 lorazepam [Ativan] 1 mg Tablet 1 mg PO BID PRN (Reason: Anxiety) RF: 0 levothyroxine 137 mcg tablet 137 mcg PO DAILY RF: 0 omeprazole 40 mg capsule,delayed release(DR/EC) 40 mg PO DAILY RF: 0 etodolac 400 mg tablet 400 mg PO BID PRN (Reason: Back Pain) RF: 0 fluoxetine 20 mg capsule 20 mg PO DAILY RF: 0 lisinopril 20 mg tablet 30 mg PO DAILY Qty: 0 RF: 0 potassium, sodium phosphates 280-160-250 mg Powder In Packet 1 packet PO TID Qty: 10 RF: 0 Primary Care Provider: Kimberly Ruelas Referrals: Kimberly Ruelas MD [Primary Care Provider] - Dima Lopez MD [STAFF PHYSICIAN] - As soon as possible Disposition Disposition: Home, Self Care
[2022-04-15 23:53] LABS: Anion Gap 5 (5-15); BUN 17 mg/dL (7-18); BUN/Creat Ratio 22.4 RATIO (10-20); Calcium,Total 9.1 mg/dL (8.5-10.1); Chloride 108 mmol/L (98-107); Creatinine, Serum 0.76 mg/dL (0.55-1.02); EST Glomerular Filtration Rate 81 mL/min (>60); Est Glom Filt Rate - Afr Amer 98 mL/min (>60); Estimated Creatinine Clearance 53.09 ml/min; Glucose 101 mg/dL (74-106); Potassium 4.4 mmol/L (3.5-5.1); Sodium Level 140 mmol/L (136-145)
[2022-04-15 23:56] LABS: Bacteria 1+ /hpf (None Seen); Squamous Epithelial Cells - UA 0-5 SEEN /hpf (5-10); Transitional Epithelial - Ur 0-5 SEEN /hpf (0-5); White Blood Cells 25-50 SEEN /hpf (0-5)
[2022-04-16] MEDS: Morphine 4 MG/ML Syringe IV
[2022-04-16] MEDS: Ondansetron 4 MG/2 ML Vial IV
[2022-04-16 00:09] LABS: AST(SGOT) 29 U/L (15-37); Alanine Aminotransfer ALT/SGPT 19 U/L (13-56); Albumin, Serum 3.7 g/dL (3.2-5.0); Alkaline Phosphatase 119 U/L (45-117); Bilirubin, Direct 0.31 mg/dL (0.00-0.30); Globulin 3.4 g/dL (2.2-4.2); Lipase 83 U/L (73-393); Protein, Total 7.1 g/dL (6.4-8.2); Troponin-I HS 11 pg/mL (3.0-54.0)
[2022-04-16 00:25] LABS: Lactic Acid 0.6 mmol/L (0.4-1.9)
[2022-04-16 03:04] VITALS: BP 136/86; PULSE 86; RESP 16; O2SAT 98
--- NOTE | 2022-04-16 23:48 | CT_ITS ---
STUDY: CT ABDOMEN AND PELVIS WITH CONTRAST REASON FOR EXAM: Female, 66 years old. pain RADIATION DOSAGE (If Supplied By Facility): CTDIvol = ( 17.72 ) mGy, DLP = ( 1165.21 ) mGycm TECHNIQUE: Transaxial images were obtained from the dome of the diaphragm to the symphysis pubis without oral contrast. IV 100mL Isovue-300 was administered. Sagittal and coronal images were reconstructed. Individualized dose optimization techniques were used for this CT. COMPARISON: CT chest 08/25/2021, CT abdomen pelvis 03/17/2021. FINDINGS: LOWER CHEST: Unremarkable. LIVER: Postsurgical changes with contour deformities. Focal low-attenuation structure posterior margin of the right lobe with adjacent calcifications and multiple surgical clips, another cluster of surgical clips anteriorly, not significantly changed. There is a peripheral low-attenuation nodule along the anterolateral margin right lobe inferiorly, parenchymal versus serosal lesion, measures 2 x 1.1 x 2.5 cm, which was not clearly present on the prior CT abdomen. GALLBLADDER/BILE DUCTS: Presumed gallbladder adjacent to surgical clips, unchanged. PANCREAS: Unremarkable. SPLEEN: Markedly enlarged. Adjacent varices. ADRENAL GLANDS: Unremarkable. KIDNEYS / URETERS: Unremarkable. Small cyst left kidney. BOWEL / MESENTERY: Supraumbilical hernia contains short segment of transverse colon, increased size compared to the prior. No adjacent stranding. Surgical clips in the left lower abdomen. No bowel obstruction. Bowel right midabdomen displaced by the adjacent abdominal wall mass. There is a 2 x 1.5 cm soft tissue nodule in the right upper abdomen anteriorly just below the liver, deep to the abdominal wall which was not present on prior studies. Varices in the upper abdomen. APPENDIX: Not identified. PERITONEUM: No free air. No free fluid. VESSELS: Abdominal aorta is normal caliber. RETROPERITONEUM: Unremarkable. REPRODUCTIVE ORGANS: Unremarkable. BLADDER: Minimally distended. ABDOMINAL WALL: Lobular heterogeneous mass within the abdominal wall in the right, lateral to the abdominal rectus muscle just below the costal margin, measures 4.8 x 4 cm axial by 4.6 cm craniocaudal, extends deep to the abdominal wall into the subjacent abdomen, increased size compared to prior CT. Several supraumbilical/subxiphoid hernias containing fat, no bowel. BONES: Small sclerotic focus in L4 vertebral body unchanged.. OTHER: None. CT/Abdomen/Pelvis W IV Cont ONLY IMPRESSION: Abdominal masses including a large lobulated mass within the abdominal wall on the right, mesenteric mass and superficial hepatic versus subserosal mass. Findings suggestive of malignancy / metastatic disease and/or peritoneal carcinomatosis. Postsurgical changes of the liver. Splenomegaly. Ventral hernia containing transverse colon without evidence of complication. Electronically Signed: Ruth Ann Templeton MD at 0:49 EDT ,
== END 2022-04-16 03:04 | disposition home or self-care (01) ==
PROVIDERS: Emergency Provider Emergency Medicine; PCP Internal Medicine; Visit Provider Emergency Medicine
DX: R10.9 Unspecified abdominal pain (principal); I10 Essential (primary) hypertension; E03.9 Hypothyroidism, unspecified; F32.A Depression, unspecified; Z85.05 Personal history of malignant neoplasm of liver
CPT/HCPCS: 74177; 80048; 80076; 81001; 83605; 83690; 84484; 85025; 87086; 87088; 93005; 99283; Q9967; A4216; J2405